=== PATIENT | female | born 1960 | race Caucasian/White ===

== ENCOUNTER → 2020-09-25 12:17 | Outpatient (CLI) | payer OTHER, SELFPAY ==
--- NOTE | ~2020-09-25 | DEXA_ITS ---
Bone Density Report Name: Janae Galeano Age: 60 Sex: Female Ethnicity: White Date of : 1960 Indication: postmenopausal; screening for osteoporosis; Referring Provider: BENJA DAUGHERTY Study: Bone densitometry was performed. Exam Date: September 25, 2020 Accession number: [id number] Bone Density: Region BMD T-score Z-score Classification AP Spine (L1-L4) 0.938 -1.0 0.5 Normal Femoral Neck (Left) 0.827 -0.2 1.1 Normal Total Hip (Left) 0.807 -1.1 -0.1 Osteopenia World Health Organization criteria for BMD impression classify patients as: Normal (T-score at or above -1.0), Osteopenia (T-score between -1.0 and -2.5), or Osteoporosis (T-score at or below -2.5). 10-year Fracture Risk(1): Major Osteoporotic Fracture 6.4% Hip Fracture 0.2% Reported Risk Factors: [place] (), Neck BMD=0.827, BMI=29.6 (1) FRAX(R) Version 3.08. Fracture probability calculated for an untreated patient. Fracture probability may be lower if the patient has received treatment. Previous Exams: Region Exam Age BMD T-score BMD Change BMD Change Date g/cm2 vs Baseline vs Previous AP Spine(L1-L4) 09/25/2020 60 0.938 -1.0 -0.175* -0.175* 06/13/2012 51 1.112 0.6 Total Hip(Left) 09/25/2020 60 0.807 -1.1 -0.225* -0.225* 06/13/2012 51 1.033 0.7 *Denotes significance at 95% confidence level, LSC for AP Spine = 0.022 g/cm2, LSC for Total Hip = 0.027 g/cm2 Clinical Information Provided by Patient: Patient maximum height was 64 Menopause Age: 51 No regular weight bearing exercise Drinks caffeinated beverages Onset of menses at age 13 Number of children 3 Impression: The patient has low bone mass, based on the Left Total Hip T-score. The patient has an estimated ten-year risk of hip fracture of 0.2% and an estimated ten-year risk of major fracture of 6.4%, based on the WHO FRAX algorithm. The BMD for the AP Spine(L1-L4) decreased, changing by -0.175 since the last DXA exam. The BMD for the Total Hip(Left) decreased, changing by -0.225 since the last DXA exam. Discussion: BONE DENSITY IS LOW AT ONE OR MORE SKELETAL SITES. This patient's lowest T-score is low at one or more skeletal sites. It meets the World Health Organization's (WHO) criteria for ?low bone mass? (T-score between -1.0 and -2.5). The patient's 10-year risk of fracture as calculated by FRAX is less than the threshold where pharmacological therapy is recommended by the National Osteoporosis Foundation (NOF). However, all treatment decisions r
== END ==
PROVIDERS: PCP Physician Assistant; Visit Provider Obstetrics & Gynecology
DX: Z78.0 Asymptomatic menopausal state (principal); M85.852 Other specified disorders of bone density and structure, left thigh
CPT/HCPCS: 77080

== ENCOUNTER → 2020-09-25 12:21 | Outpatient (CLI) | payer OTHER, SELFPAY ==
--- NOTE | ~2020-09-25 | MM_ITS ---
EXAMINATION: MM scrn marzena implant BI w de HISTORY: Screening mammogram TECHNIQUE: Craniocaudal and mediolateral oblique 3-D tomosynthesis images with implant displacement a nd synthetic 2-D images were generated. Craniocaudal and mediolateral oblique views of the breasts wi thout implant displacement were obtained using full field digital mammography. CAD analysis was submi tted and interpreted. COMPARISON: No prior mammogram is available for comparison at this institution. BREAST PARENCHYMAL COMPOSITION: The breasts are heterogeneously dense, which may obscure small masses . FINDINGS: There is no evidence of suspicious mass, calcification, or architectural distortion to sugg est malignancy in either breast. There has been no suspicious interval change. IMPRESSION: 1. No mammographic evidence of malignancy. 2. Recommend routine screening mammography in one year. BI-RADS Category 1: Negative Reviewed, dictated and finalized at location A. PREAD INSPECTOR
== END ==
PROVIDERS: PCP Physician Assistant; Visit Provider Physician Assistant
DX: Z12.31 Encounter for screening mammogram for malignant neoplasm of breast (principal)
CPT/HCPCS: 77063; 77067

== ENCOUNTER → 2022-10-25 07:32 | Outpatient (CLI) | payer OTHER, SELFPAY ==
--- NOTE | ~2022-10-25 | MM_ITS ---
EXAMINATION: MM scrn marzena implant BI w de HISTORY: Screening mammogram TECHNIQUE: Craniocaudal and mediolateral oblique 3-D tomosynthesis images with implant displacement a nd synthetic 2-D images were generated. Craniocaudal and mediolateral oblique views of the breasts wi thout implant displacement were obtained using full field digital mammography. CAD analysis was submi tted and interpreted. COMPARISON: 09/2020, 03/2018, 02/12/2016 bilateral screening implant mammogram examinations BREAST PARENCHYMAL COMPOSITION: The breasts are heterogeneously dense, which may obscure small masses . FINDINGS: Status post bilateral augmentation mammoplasty. New 7 mm mass is suggested in the upper outer left breast posteriorly. Diagnostic left mammogram and left breast ultrasound examination are recommended. Grouped microcalcifications are noted in the posterior upper right breast on implant displaced MLO vi ew. Diagnostic right mammogram with magnification views is recommended.. IMPRESSION: 1. Suggestion of new 7 mm mass in the posterior upper outer left breast. 2. Grouped microcalcifications in posterior upper right breast on implant displaced MLO view Recommendation: Bilateral diagnostic mammography including magnification views on the right BI-RADS Category 0: Incomplete: Needs additional imaging evaluation Reviewed, dictated and finalized at location A. IMPRESSION: 1. Suggestion of new 7 mm mass in the posterior upper outer left breast. 2. Grouped microcalcifications in posterior upper right breast on implant displ aced MLO view Recommendation: Bilateral diagnostic mammography including magnification views on the right BI-RADS Category 0: Incomplete: Needs additional imaging evaluation
== END ==
PROVIDERS: PCP Physician Assistant; Visit Provider Physician Assistant
DX: Z12.31 Encounter for screening mammogram for malignant neoplasm of breast (principal); N63.21 Unspecified lump in the left breast, upper outer quadrant
CPT/HCPCS: 77063; 77067

== ENCOUNTER → 2022-11-18 08:11 | Outpatient (CLI) | payer OTHER, SELFPAY ==
--- NOTE | ~2022-11-18 | MMUS_ITS ---
EXAMINATION: MM diag marzena implant BI w de, US breast BI complete HISTORY: Possible new 7 mm mass in the posterior upper outer left breast grouped microcalcifications in the posterior upper right breast on October 25, 2022 screening mammogram examination TECHNIQUE: Additional 3-D tomosynthesis images of both breasts were performed and synthetic 2-D image s were generated. Magnification views of right breast. CAD analysis was submitted and interpreted. Hi gh resolution bilateral complete breast ultrasound examination including all 4 quadrants and subareol ar areas was performed. COMPARISON: October 25, 2022 bilateral implant screening mammogram FINDINGS: MAMMOGRAPHIC FINDINGS: Approximately 5.5 mm circumscribed mass is noted posteriorly in the upper right breast, with some egg shell calcification. This appears probably benign. Heterogeneously dense stroma of the breasts may obscure masses. ULTRASOUND: There is dense stroma of both breasts Right breast: 10:00 8 cm from nipple: There is a circular proximally 7 mm circumscribed hypoechoic lesion which lik aby corresponds to the density with eggshell calcification on mammography. This is not associated wit h any internal vascularity on color flow imaging. This is most likely benign. No suspicious mass is detected. There is some shadowing from very dense breast tissue, without appare nt focal mass. Left breast: No suspicious mass or shadowing is detected. IMPRESSION: 1. Probable benign finding, right breast 10:00 8 cm from nipple 2. 6 month diagnostic right mammogram and right breast ultrasound follow-up are recommended BI-RADS category 3, probably benign findings. Reviewed, dictated and finalized at location A. IMPRESSION: 1. Probable benign finding, right breast 10:00 8 cm from nipple 2. 6 month diagnostic right mammogram and right breast ultrasound follow-up are recommended BI-RADS category 3, probably benign findings.
== END ==
PROVIDERS: PCP Physician Assistant; Visit Provider Physician Assistant
DX: R92.8 Other abnormal and inconclusive findings on diagnostic imaging of breast (principal)
CPT/HCPCS: 76641; 77062; 77066; G0279

== ENCOUNTER 2024-03-15 07:36 | Outpatient (CLI) | payer OTHER, SELFPAY ==
--- NOTE | ~2024-03-15 | MMUS_ITS ---
EXAMINATION: US breast RT complete, MM diag marzena implant BI w de HISTORY: Follow-up right breast mass TECHNIQUE: Additional 3-D tomosynthesis images of the right breast were performed and synthetic 2-D i mages were generated. CAD analysis was submitted and interpreted. High resolution complete right juan carlos st ultrasound was performed. COMPARISON: Comparison to multiple prior studies sequentially, with oldest reviewed study dated 10/2020. BREAST PARENCHYMAL COMPOSITION: Dense: The breasts are extremely dense, which lowers the sensitivity of mammography. FINDINGS: MAMMOGRAPHIC FINDINGS: No discrete mass or architectural distortion. There are no suspicious calcifications. There are bilat eral subpectoral breast implants. ULTRASOUND: Complete US of all 4 quadrants of the breast/s and retroareolar region was reviewed. At 11:00, 5 cm f rom the nipple there is a slightly irregular shaped hypoechoic mass measuring 9 x 6 x 9 mm without po sterior acoustic shadowing. At 10:00, 8 cm from the nipple there is oval hypoechoic 7 mm mass with ci rcumscribed margins, parallel orientation, no significant posterior features and no internal vascular ity, without significant change from prior study. IMPRESSION: 1. New 9 mm right breast mass at 11:00, 5 cm from the nipple with slightly irregular margins. 2. Ultrasound-guided right breast biopsy recommended. BI-RADS category 4, suspicious findings. Reviewed, dictated and finalized at location B. IMPRESSION: 1. New 9 mm right breast mass at 11:00, 5 cm from the nipple with slightly irre gular margins. 2. Ultrasound-guided right breast biopsy recommended. BI-RADS category 4, suspicious findings.
== END 2024-03-15 07:37 ==
LOC: MICIMG 07:37
PROVIDERS: PCP Physician Assistant; Visit Provider Nurse Practitioner Family
DX: R92.8 Other abnormal and inconclusive findings on diagnostic imaging of breast (principal)
CPT/HCPCS: 76641; 77062; 77066; G0279

== ENCOUNTER 2024-05-04 12:36 | Outpatient (CLI) | payer OTHER, SELFPAY ==
--- NOTE | ~2024-05-04 | MR_ITS ---
MR breast BI wo/w con 05/07/2024 10:22 CDT INDICATION: Right breast mass seen on prior examination. Biopsy requested. TECHNIQUE: MRI of the breasts perform using standard protocol pre-and post IV contrast with the follo wing sequences: Axial T2 STIR, axial T1, axial vibrant T1 with fat suppression precontrast and multip hasic postcontrast. 15 cc MultiHance administered intravenously. COMPARISON: Comparison to multiple prior studies sequentially, with oldest reviewed study dated 10/2017. FINDINGS: On precontrast sequences and postcontrast sequences there is a 9 mm mass which is predomina ntly hyperintense on T1, hypointense on T2 and isointense to fat on fat suppression sequences with no enhancement. This likely corresponds to the sonographic abnormality seen on prior examination and is likely benign. There is a similar 6 mm nodule in the upper inner quadrant of the right breast withou t enhancement. There is a 3 mm foci of enhancement with rapid plateau enhancement, likely benign intr amammary lymph node. There is minimal background parenchymal enhancement. No evidence of signal abno rmalities in the axillary or internal mammary node distributions. LEFT BREAST: No signal abnormalities on precontrast sequences. There is minimal background parenchym al enhancement. No enhancing lesions following contrast administration. No areas of enhancement me eting threshold criteria on CAD analysis. No evidence of signal abnormalities in the axillary or in ternal mammary node distributions. IMPRESSION: 1: Small nonenhancing masses of the right breast which may correspond to the sonographic findings on prior examination. Given the lack of enhancement and the relative fat suppression these are likely be nign. BI-RADS CATEGORY 3-PROBABLY BENIGN FINDING RECOMMENDATION: Six-month follow-up diagnostic right mammogram and right breast ultrasound recommende d. Reviewed, dictated and finalized at location B. IMPRESSION: 1: Small nonenhancing masses of the right breast which may correspond to the so nographic findings on prior examination. Given the lack of enhancement and the relative fat suppression these are likely benign. BI-RADS CATEGORY 3-PROBABLY BENIGN FINDING RECOMMENDATION: Six-month follow-up diagnostic right mammogram and right breast ultrasound recommended.
== END 2024-05-04 12:37 | disposition home or self-care (01) ==
LOC: ANHIMG 12:38
PROVIDERS: PCP Physician Assistant; Visit Provider Surgery
DX: N63.11 Unspecified lump in the right breast, upper outer quadrant (principal); N63.12 Unspecified lump in the right breast, upper inner quadrant; R92.8 Other abnormal and inconclusive findings on diagnostic imaging of breast
CPT/HCPCS: 77049; A9577; C8908

== ENCOUNTER 2024-12-18 09:05 | Outpatient (CLI) | payer OTHER, SELFPAY ==
--- NOTE | ~2024-12-18 | MMUS_ITS ---
EXAMINATION: US breast RT limited, MM diag marzena implant RT w de HISTORY: Follow-up right breast mass TECHNIQUE: Additional 3-D tomosynthesis images of the right breast were performed and synthetic 2-D i mages were generated. CAD analysis was submitted and interpreted. High resolution Limited right breas t ultrasound was performed. COMPARISON: Comparison to multiple prior studies sequentially, with oldest reviewed study dated 02/11. BREAST PARENCHYMAL COMPOSITION: Dense: The breasts are heterogeneously dense, which may obscure small masses FINDINGS: MAMMOGRAPHIC FINDINGS: There is a subpectoral breast implant. There is a small stable appearing periareolar mass of the righ t breast seen on CC view, not well visualized on MLO or mediolateral views. ULTRASOUND: Limited right breast ultrasound: At 11:00, 5 cm from the nipple there is a parallel oriented circumsc ribed hypoechoic mass measuring 9 x 7 x 9 mm compared with 9 x 6 x 9 mm on prior examination, likely benign. At 10:00, 8 cm from the nipple there is an oval hypoechoic parallel oriented mass without int ernal vascularity or posterior features measuring 5 x 4 x 6 mm compared with 7 x 5 x 6 mm on prior ex amination. IMPRESSION: 1. Stable likely benign right breast masses. 2. Recommend 6 month follow-up bilateral screening mammogram and Limited right breast ultrasound. BI-RADS category 3, probably benign findings. Reviewed, dictated and finalized at location A. IMPRESSION: 1. Stable likely benign right breast masses. 2. Recommend 6 month follow-up bilateral screening mammogram and Limited right breast ultrasound. BI-RADS category 3, probably benign findings.
== END 2024-12-18 09:06 | disposition home or self-care (01) ==
LOC: MICIMG 09:05
PROVIDERS: PCP Physician Assistant; Visit Provider Surgery
DX: R92.8 Other abnormal and inconclusive findings on diagnostic imaging of breast (principal); R92.343 Mammographic extreme density, bilateral breasts; N63.11 Unspecified lump in the right breast, upper outer quadrant
CPT/HCPCS: 76642; 77061; 77065; G0279

== ENCOUNTER 2025-06-03 00:14 | Day surgery (SDC) | payer OTHER, SELFPAY ==
--- OUTSIDE RECORDS SUMMARY | 2025-02-21 08:15 | XMS_ITS | Continuity of Care Document ---
Author Organization [facility] Address [address] [place] [address] Phone Care Team Providers Care Technical Buyer Name Role Phone Reese Myles MD, Victor Hugo Unavailable Unavailab le Allergies, Adverse Reactions, Alerts Substance Reaction Status Criticality levofloxacin Active No Information Medications Medication Instructions Dosage Effective Dates (start - stop) Status Comments oxycodone 5 mg tablet take 1 tablet by oral route every 6 hours as needed 5 MG - Active Aspirin Childrens 81 mg chewable tablet chew 1 tablet by oral route every day 81 MG - Active cephalexin 500 mg tablet take 1 tablet by oral route 2 times every day 500 MG - Active sennosides 8.6 mg-docusate sodium 50 mg tablet take 2 tablet by oral route every day 2.00 tablet - Active escitalopram 5 mg tablet take 1 tablet by oral route every day 5 MG - Active methocarbamol 500 mg tablet take 1 tablet by oral route 3 times every day 500 MG - Active valacyclovir 500 mg tablet take 1 tablet by oral route every day 500 MG - Active clonazepam 1 mg tablet take 1 tablet by oral route 3 times every day 1 MG - Active naloxone 4 mg/actuation nasal spray spray 0.1 milliliter by intranasal route in 1 nostril may repeat dose every 2-3 minutes as needed alternating nostrils with each dose 4 MG - Active topiramate 25 mg tablet take 1 tablet by oral route every day 25 MG - Active midodrine 5 mg tablet take 2 tablet by oral route 3 times every day 10 MG - Active Procedures Procedure Date OFFICE/OUTPATIENT VISIT EST X-RAY EXAM OF FEMUR 2/> OFFICE/OUTPATIENT VISIT EST X-RAY EXAM OF FEMUR 2/> POSTOP FOLLOW-UP VISIT X-RAY EXAM OF FEMUR 2/> POSTOP FOLLOW-UP VISIT X-RAY EXAM OF FEMUR 2/> TREATMENT OF THIGH FRACTURE POSTOP FOLLOW-UP VISIT Advance Directives Directive Yes / No Effective Date File Name No Information Encounters Encounter Description Practice Location Reason(s) For Visit Diagnoses Date Provider Providers Copied on Encounter OFFICE/OUTPA TIENT VISIT EST [facility], [address], [place], [address], [place] tel:[phone] [facility] [place] Status post open reduction with internal fixation of fractureOther fracture of lower end of right femur, subsequent encounter for closed fracture with routine healing 5 Reese Gay. [address], [place], [address], [place]. tel:[phone] Referring Provider: Jesus Barfield[address] [facility] [address], [place], [address]. tel:[phone] OFFICE/OUTPA TIENT VISIT EST [facility], [address], [place], [address], [place] tel:[phone] [facility] Status post open reduction with internal fixation of fracturePersonal history of (healed) traumatic fracture 5 Reese Gay. [address], [place], [address], [place]. tel:[phone] Referring Provider: Jesus Bar[address], [place], [address]. tel:[phone] [facility], [address], [place], [address], [place] tel:[phone] [facility] No Information 5 Reese Gay. [address], [place], [address], [place]. tel:[phone] [facility], [address], [place], [address], [place] tel:[phone] [facility] Other fracture of lower end of right femur, subsequent encounter for closed fracture with routine healingStatus post open reduction with internal fixation of fracturePersonal history of (healed) traumatic fracture 5 Reese Gay. [address], [place], [address], [place]. tel:[phone] Referring Provider: Jesus Barfield[address], [place], [address]. tel:[phone] [facility], [address], [place], [address], [place] tel:[phone] [facility] Other fracture of lower end of right femur, subsequent encounter for closed fracture with routine healing 5 Reese Gay. [address], [place], [address], [place]. [phone] Referring Provider: Jesus Barfield[address], [place], [address]. tel:[phone] [facility], [address], [place], [address], [place] tel:[phone] [facility] FEMUR (chief complaint) Other fracture of lower end of right femur, subsequent encounter for closed fracture with routine healingPeriprost hetic fracture around internal prosthetic right knee joint, initial encounter 5 Reese Gay. [address], [place], [address], [place]. tel:[phone] Referring Provider: Mitzy Nunez [address], [place], [address]. tel:[phone] [facility], [address], [place], [address], [place] tel:[phone] [facility] Periprosthetic fracture around internal prosthetic right knee joint, initial encounterOther fracture of lower end of right femur, initial encounter for closed fracturePresence of right artificial knee joint Reese Gay. [address], [place], [address], [place]. tel: [phone] Family History Family Member Type Diagnosis Age At Onset No Information Payers Payer name Insurance type Covered constitution party ID Authoriza tion(s) [facility] Choice/Choice Plus [id number] [id number] Social History Type Description Quantity Date Captured Comments Alcohol Use Details Unknown Caffeine Use Details Unknown Tobacco Use Status No Information Smoking Status No Information Sex Female Chief Complaint And Reason For Visit No Information Reason For Referral Reason For Referral No Information Plan Of Treatment Date Type Action Status Referral Ordered: X-RAY EXAM OF FEMUR 2/> RT femur ordered History Of Present Illness Encounter Date Complaint History Of Prese nt Illness FEMUR Functional Status Date Functional Assessmen t No Information Instructions Date Instruction Additional Infor mation No Information Assessments Type Assessment Date assessment Status post open reduction with internal fixation of fracture assessment Other fracture of lo wer end of right femur, subsequent encounter for closed fracture with routine healing Patient Care Teams Name Effective Dates (start - stop) Status Members No Information
--- OUTSIDE RECORDS SUMMARY | 2025-06-03 00:16 | XMS_ITS | Clinical Summary ---
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 Role Phone Mitzy Nunez Primary Care Pr ovider Allergies Active Allergy Reactions Criticality Noted Date Comments Levofloxacin Swelling,Joint pain Medium 01/13/2011 Medications escitalopram (LEXAPRO) 5 mg tabletIndicatio ns:Anxiety with Depression Take 1 tablet (5 mg total) by mouth every morning 3 Active methocarbamoL (ROBAXIN) 500 mg tabletIndicatio ns:Muscle Spasm Take 1 tablet (500 mg total) by mouth 2 (two) times a day as needed for muscle spasms Active valACYclovir (VALTREX) 1 gram tabletIndicatio ns:prevent cold sores Take 1 tablet (1,000 mg total) by mouth nightly 1 Active clonazePAM (KlonoPIN) 1 mg tabletIndicatio ns:sleep, anxiety Take 1 tablet (1 mg total) by mouth nightly Active Ubrelvy 100 mg tabletIndicatio ns:Migraine,cut s tabs in half; starts at 50 mg (1/2 a tablet) and can take one more 50mg as needed Take 50 mg by mouth 2 (two) times a day as needed for migraine 4 Active cholecalciferol , vitamin D3, (VITAMIN D3 ORAL)Indication s:supplement Take 1 tablet by mouth early intervention specialist before breakfast Active inulin (PREBIOTIC FIBER ORAL)Indication s:supplement Take 1 tablet by mouth early intervention specialist before breakfast Active ergocalciferol (VITAMIN D) 50,000 unit capsule TAKE 1 CAP 2 X A WEEK FOR 8 WEEKS THEN FOLLOW UP WITH YOUR PCP. 16 capsule 4 Active traMADoL (ULTRAM) 50 mg tablet Take 1 tablet (50 mg total) by mouth every 6 (six) hours 42 tablet 4 Active pregabalin (LYRICA) 75 mg capsule Take 1 capsule (75 mg total) by mouth 2 (two) times a day for 14 days 28 capsule 4 Active acetaminophen (TYLENOL) 500 mg tablet Take 2 tablets (1,000 mg total) by mouth every 8 (eight) hours 90 tablet 4 Active aspirin 81 mg enteric coated tablet Take 1 tablet (81 mg total) by mouth 2 (two) times a day 60 tablet 4 Active senna-docusate (PERICOLACE) 8.6-50 mg Take 2 tablets by mouth 2 (two) times a day May increase to 4 tablets twice daily if needed. HOLD medication for diarrhea. 80 tablet 1 4 Active meloxicam (MOBIC) 15 mg tablet Take 1 tablet (15 mg total) by mouth daily 30 tablet 4 Active oxyCODONE (ROXICODONE) 5 mg immediate release tabletIndicatio ns:Pain Take 1 tablet (5 mg total) by mouth every 4 (four) hours as needed for pain 30 tablet 4 Active triamcinolone (KENALOG) 0.025 % cream Apply topically 2 (two) times a day 30 g 4 Active methylPREDNISol one (MEDROL DOSEPACK) 4 mg Dosepack Take as directed on package 1 packet 4 Active topiramate (TOPAMAX) 50 mg tablet 4 Active Active Problems Problem Noted Date Diagnosed Date Right knee pain 12/22/2023 Primary osteoarthritis of right knee 08/29/2023 Surgical History Surgery Date Site/Laterality Comments TOTAL HIP ARTHROPLASTY Hip Replacement - (Added by TW Conv) HIP SURGERY Hip Repair - (Added by TW Conv) GA INJ LUMBAR/SACRAL,W/WO CNTRST Corticosteroid Injection Interlaminar Approach Lumbar - (Added by TW Conv) GA DSTR NROLYTC AGNT PARVERT EB FCT SNGL LMBR/SACRAL Nerve Ablation Paravertebral Facet Joint With Imaging Guidance Lumbar - CRF left S1,S2,S3 L5 (Added by TW Conv) REPLACEMENT TOTAL KNEE Left Medical History Medical History Date Comments Personal history of other di seases of the musculoskeletal system and connective tissue History o f foot drop - (Added by TW Conv) Family History Medical History Relation Name Comments Hypertension Father Family history of hypertension - (Added by TW Conv) Kyphosis Father Kyphosis - (Add ed by TW Conv) Kyphosis Sister Kyphosis - (Add ed by TW Conv) Kyphosis Son Kyphosis - (Add ed by TW Conv) Anesthesia problems Neg Hx Relation Name Status Comments Father Sister Son Social History Tobacco Use Types Packs/Day Years Used Date Smoking Tobacco: Former Cigarettes 1 12 S tarted: 1977 Smokeless Tobacco: Never Tobacco Cessation:Counseling Given: Not Answered AUDIT-C Answer Date Recorded Q1: How often do you have a drink containing alcohol? Never 12/02/2023 Q2: How many drinks containi ng alcohol do you have on a typical day when you are drinking? Patient does not drink Q3: How often do you have si x or more drinks on one occasion? Never 12/02/2023 Personal Safety Answer Date Recorded Have you ever been in or are you currently in a harmful physical or emotional relationship or is someone making you feel afraid or unsafe? 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[employer] HEL[employer] Gender Identity Female 11/27/2023 8:06 PM CDT Sexual Orientation Straight 11/27/2023 8: 06 PM CDT Last Filed Vital Signs Vital Sign Reading Time Taken Comments Blood Pressure 124/66 12/23/2023 7:25 AM CDT Pulse 61 12/23/2023 7:25 AM CDT Temperature 35.7 C (96.2 F) 12/23/2023 7:25 AM CDT Respiratory Rate 16 12/23/2023 7:25 AM CDT Oxygen Saturation 99% 12/23/2023 7:25 AM CDT Inhaled Oxygen Concentration - - Weight 79 kg (174 lb 3.2 oz) 12/02/2023 2:10 PM CDT Height 160 cm (5' 3) 12/02/2023 2:10 PM CDT Body Mass Index 30.86 12/02/2023 2:10 PM CDT Plan of Treatment Health Maintenance Due Date Last Done Comments Cervical Cancer Screening 1959 Colon Cancer Screening-Colonoscopy 1959 Depression Screening 1959 Hepatitis C Screening 1959 Osteoporosis Screening-Bone Density Scan 1959 Hepatitis B Screening 1977 Pneumococcal vaccine 65+ (1 of 2 - PCV) 1978 Zoster Vaccine (1 of 2) 2009 DTaP/Tdap/Td Vaccine (2 - Td or Tdap) 11/14/2016 11/14/2006 Breast Cancer Screening-Mammogram 09/25/2021 021 Well Visit 65+ 2024 Fall Risk Assessment 12/22/2024 12/23/2023 Influenza Vaccine (#1) 2025 3, 04/29/2022, 04/28/2020, Additional history exists Medical Devices Implanted Type Area Pallet Sorter Device Identifier Shelf Expiration Date Model / Serial / Lot Left Knee Replacement Left: Knee Right Hip Replacement Right: Hip [employer] Attune Fb Tib Base Sz 5 Por [id number] - [id number] Implanted:Qty: 1 on 12/22/2023 at [facility] Right: Knee [employer] 02/21/2033 [id number] / / [id number] [employer] Attune Cruciate Retain Cementless Knee Right 5 Component Femoral [id number] - [id number] Implanted:Qty: 1 on 12/22/2023 at [facility] Right: Knee [employer] 10/22/2033 [id number] / / [id number] [employer] Insert Tibial Knee Fixed Rm Posterior Stabilized Attune 7mm Size 5 Polyethylene [id number] - [id number] Implanted:Qty: 1 on 12/22/2023 at [facility] Right: Knee [employer] 10/23/2031 [id number] / / [id number] [address] [facility] Address: [address] [place] [address] [facility] Address: [address] [place] [address] Advance Directives For more information, please contact: [phone] * Full Code (Latest Code Status on File) Date Activated Date Inactivated Comments 12/22/2023 6:42 PM 12/23/2023 1:57 PM Care Teams Long Wall Shear Operator Relationship Specialty Start Date End Date Mitzy Nunez PA PCP - General 10/29/16
--- OUTSIDE RECORDS SUMMARY | 2025-06-03 00:16 | XMS_ITS | Data Portability ---
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 mammogram UTD october 2022. additional views are needed and to complete Not available 11/19/2022 18:15:54 12/22/2022 12/22/2022 HPI: 62-year-old female came in today for evaluation of her right knee pain. Her pain started on November 16 of this year when she slipped in the right knee hyperflexed under her. She had some degree of pain when this happened but 3 or 4 days later knee started really bothering her. It continued to bother since then. She has not been taking any anti-inflammatori es for this. Patient has significant past medical history of having a left total knee arthroplasty done in [place] in 2010. She had her right hip replaced in 1997 and has had 2 revisions 1 done in 2005 and the other in 2014. After her surgery 2014 she had a footdrop on the right leg. This was evaluated with EMG and she had a decompression of the peroneal nerve done which seemed to help a little bit with foot drop so it is not at this point severe. She does have a brace but does not feel she needs it. Physical exam: 62-year-old female alert pleasant. She is 5 ft 4 and 178 lb. She has mild effusion right knee. Range of motion is from 5 to 130 . She starts developing pain in the knee after about 100 of flexion. Hip range motion causes no discomfort. She has moderate tenderness over the medial joint line palpation. No lateral joint line tenderness. Minimal pain patellofemoral grind. 2+ dorsalis pedis pulse in her foot. No edema in lower extremities. After ChloraPrep was used on skin 20 mg Kenalog and 3 cc of 0.5% ropivacaine was injected into the right knee. Risk infection discussed. Impression: 62-year-old female who has severe medial compartment osteoarthritis of the right knee. She was having almost no symptoms in the knee up until this episode about 6 weeks ago. I discussed options with her. One option is to talk about knee replacement surgery since she does have severe medial compartment osteoarthritis. She has had her left knee replaced in the past and is happy with her results. The other option is to treat the symptoms in the right knee at this point and see whether not this will quiet down to the point where they were prior to her injury and be able to put off surgery for while. 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 I discussed with her that having cortisone injection it is a minimum of 3 months for surgery could be an option. Also she can repeat cortisone injection as often as every 3 months. At this point she is not taking any anti-inflammatori es and I recommended trying diclofenac 75 mg b.i.d. to try to get maximal improvement of her symptoms. After discussing options with her she decided she would like to try medication as well injection to see if this will make things tolerable so that she can not put things off for longer period of time. I think trying to get her scheduled for surgery and getting her rehabilitated and ready for school to start in mid February would be worrisome and we discussed this as well. I will see her back in a month to see how she is doing from these measures. 30 minutes was spent in treatment patient more than half of this in [id number] conversation [email or web address] Not available 12/22/2022 17:08:48 05/30/2023 05/30/2023 cologuard negative 2021. mammogram UTD october 2022. had additional views due for pap smear with dr. weiner, pt aware to schedule. Not available 05/30/2023 17:32:26 Plan of Treatment Reminders Order Date Submit Date Provider Last Modified By Organization Details Last Modified Time Details Appointments None recorded. Lab CMP, serum or plasma 2022 023 [email or web address] 4 [facility], [address], [place], [address], 11:46:46 lipid panel, serum 2022 023 [email or web address] 4 [facility], [address], [place], [address], 11:46:57 Referral None recorded. Procedures injection/a spiration joint/bursa (PROC) - in office procedure, administere d by provider 2022 023 [email or web address] In-Office Order, Internal Use Only DO Not Attach Compendium DO Not Attach Compendium, Do Not Delete/merge, 20314 16:08:04 Surgeries None recorded. Imaging MRI, brain + internal auditory canal, w/wo contrast 2022 023 [email or web address] [facility], [address], [place], [address], 16:34:13 XR, knee 2022 023 [email or web address] [facility], [address], [place], [address], 3 17:25:50 Medication Orders Kenalog 10 mg/mL suspension for injection 2022 023 [email or web address] 4 [id number], [address], [place], [place], [id number], 3 09:31:40 ropivacaine (PF) 5 mg/mL (0.5 %) injection solution 2022 023 [email or web address] 4 [facility] #[id number], [address], [place], [place], [id number], 3 09:31:43 diclofenac sodium 75 mg tablet,gema yed release 2022 023 [email or web address] 4 [facility] #[id number], [address], [place], [place], [id number], 3 09:34:55 Patient TargetsNo targets recorded. Patient InstructionsNo instructions recorded. Reason for Referral None Reported. Results Created Date Observation Date Name Description Value Unit Range Abnormal Flag Note LastModifiedBy Organization Detail LastModifiedTime 05/19/2005/19/2022 COLOG UARD cologuard result reportable negati ve negati ve NEGAT KALANI TEST RESUL T. A negat kalani Colog uard resul t indic ates a low likel ihood that a color ectal cance r (CRC) or advan jose adeno ma (j luis omato us polyp s with more advan jose pre-m align ant featu res) is prese nt. The chanc e that a perso n with a negat kalani Colog uard test has a color ectal cance r is less than 1 in 1500 (nega tive predi ctive value >99.9 %) or has an advan jose adeno ma is less than 5.3% (nega tive predi ctive value 94.7% ). These data are based on a prosp ectiv e cross -sect ional study of ,00 0 indiv idual s at [facility] risk for color ectal cance r who were scree hodan with both Colog uard and colon oscop y. (Shantanu chavez T. et al, N Engl J Med 2014; 370(1 4):12 86-12 97) The stanley l value (refe rence range ) for this assay is negat kalani. COLOG UARD RE-SC REENI NG RECOM MENDA TION: Perio dic color ectal cance r scree maya is an impor tant part of preve ntive healt hcare for asymp tomat ic indiv idual s at [facility] risk for color ectal cance r. Follo wing a negat kalani Colog uard resul t, the Ameri can Cance r Socie ty and U.S. Multi -Soci ety Task Force scree maya guide lines recom mend a Colog uard re-sc obdulia tirado inter dari of 3 years . Refer ences : Ameri can Cance r Socie ty Guide line for Color ectal Cance r Scree maya: https ://inocente w.can cer.o rg/ca ncer/ colon -rect al-ca ncer/ detec tion- diagn osis- stagi ng/ac s-rec ommen datio ns.ht ml.; Evaristo PEARSON, Yolis PEREZ, Angela JOSHUA, Color ectal Cance r Scree maya: Recom menda tions for Physi cians and Patie nts from the U.S. Multi -Soci ety Task Force on Color ectal Cance r Scree maya , Sky Gray Gastr emilyntzakia rolog y 2017; 112:1 016-1 030. TEST DESCR IPTIO N: Wright site algor ithmi c layton sis of stool DNA-b iomar kers with hemog lobin immun oassa y. Quant itati ve value s of indiv idual bioma rkers are not repor table and are not assoc iated with indiv idual bioma rker resul t refer ence range s. Colog uard is inten ded for color ectal cance r scree maya of adult s of eithe r sex, 45 years or older , who are at [facility] for color ectal cance r (CRC) . Colog uard has been appro mariana for use by the U.S. FDA. The perfo rmanc e of Colog uard was estab lishe d in a cross secti onal study of [facility] adult s aged 50-84 . Colog uard perfo rmanc e in patie nts ages 45 to 49 years was estim ated by mata-g starr layton sis of near- age group s. Colon oscop ies perfo rmed for a posit kalani resul t may find as the most clini jeniffer signi ficyolanda t lesio n: color ectal cance r [4.0% ], advan jose adeno ma (incl uding sessi le rancho ethan polyp s great er than or equal to 1cm diame ter) [20%] or non- advan jose adeno ma [31%] ; or no color ectal neopl dedra [45%] . These estim ates are deriv ed from a prosp ectiv e cross -sect ional scree maya study of 0 indiv idual s at [facility] risk for color ectal cance r who were scree hodan with both Colog uard and colon oscop y. (Shantanu Noel et al, N Engl J Med 2014; 370(1 4):12 86-12 97.) Colog uard may produ ce a false negat kalani or false posit kalani resul t (no color ectal cance r or preca ncero us polyp prese nt at colon oscop y follo w up). A negat kalani Colog uard test resul t does not guara ntee the absen ce of CRC or advan jose adeno ma (pre- cance r). The curre nt Colog uard scree maya inter dari is every 3 years . (Amer ican Cance r Socie ty and U.S. Multi -Soci ety Task Force ). Colog uard perfo rmanc e data in a 0 patie nt pivot al study using colon oscop y as the refer ence metho d can be acces sed at the follo wing locat ion: www.e xactl abs.c om/re reyna . Addit ional descr iptio n of the Colog uard test proce ss, warni ngs and preca ution s can be found at www.c sandraogu adam.c om. Not Available [employer] [address], [place], [address], 05/25/2022 10:58:40 10/27/19 23 10/25/2022 [email or web address] , diagn ostic , digit al, bilat eral No observ ation record ed. cyl [facility] [address], [place], [address], 12/27/2022 16:33:13 12/23/19 23 XR, knee No observ ation record ed. [email or web address] [place] [address], [place], [address], 12/22/2022 17:03:00 Result Notes None recorded. 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 Not Available [facility] 3 16:55:48 Deformity of foot 131150815 Active Not Available [facility] 3 16:55:48 Mixed anxiety and depressive disorder 800516825 Active JORDAN Stokes, [place] - [place] [employer] [facility] 3 14:32:03 Osteoarthr itis of hip 671190414 Active Not Available [facility] 3 16:55:49 Headache 94104229 Active Not Available [facility] 3 16:55:49 Mixed hyperlipid emia 879080329 Active Not Available [facility] 3 16:55:49 Recurrent major depressive episodes 502873477 Active Not Available [facility] 3 16:55:49 Foot-drop gait 31319551 Active Not Available [facility] 3 16:55:49 Low back pain 156384117 Active Not Available [facility] 3 16:55:49 Vaginitis 12264359 Active Not Available [facility] 3 16:55:49 Genital herpes simplex 90695523 Active Not Available [facility] 3 16:55:49 Vitamin D deficiency 32757593 Active Not Available [facility] 3 16:55:49 Acute pharyngiti s 776589936 Active Not Available [facility] 3 16:55:49 Dizziness 405973183 Active Not Available [facility] 3 16:55:49 Nausea 916992793 Active Not Available [facility] 3 16:55:49 Streptococ sandhya sore throat 86484154 Active Not Available [facility] 3 16:55:49 Closed injury of head 314680051700 Active Not Available [facility] 3 16:55:49 Herpes zoster 4420765 Active Not Available [facility] 3 16:55:49 Cough 98859360 Active Not Available [facility] 3 16:55:50 Disturbanc e in sleep behavior 24833041 Active Not Available [facility] 3 16:55:50 Upper respirator y infection 52074033 Active Not Available [facility] 3 16:55:50 Hyperlipid emia 95542778 Active JORDAN Stokes, [employer] [facility] [employer] 3 14:31:59 Foot-drop 2219592 Active Not Available [facility] 3 16:55:50 Nasal congestion 51637558 Active Not Available [facility] 3 16:55:50 Urinary tract infectious disease 43074100 Active Not Available [facility] 3 16:55:50 Posterior rhinorrhea 98209180 Active Not Available [facility] 3 16:55:50 Osteoarthr itis of ankle and/or foot 94249316 Active Not Available [facility] 3 16:55:50 Acute sinusitis 22383480 Active 2021 Not Available [facility] 3 16:55:48 Mammograph y abnormal 889150318 Active 2022 CALVIN Barfield [address], [address], [place], [address] , [employer] 3 14:10:21 Pain of right knee joint 9717112396032 00 Active 2022 Isabel cabrera, [employer] 3 15:18:29 Depressive disorder 07911351 Active 2022 CALVIN Barfield [address], [address], [place], [address] , [employer] 3 08:43:55 Hypercalce fang 13247213 Active 2022 CALVIN Barfield [address], [address], [place], [address] , [employer] 3 17:37:44 Blurring of visual image 643644227 Active 2022 CALVIN Barfield [address], [address], [place], [address] , [employer] 3 10:07:21 Migraine 40692970 Active 2022 CALVIN Barfield [address], [address], [place], [address] , [employer] 3 19:40:04 Pain of multiple joints 82565031 Active 2022 CALVIN Barfield [address], [address], [place], [address] , [employer] 3 09:51:35 Notes:COVID-19 pos 04/02/22 Problem Notes None recorded. Procedures Surgical History Date Name Laterality Status Provider Name and Address Organization Details Recorded Time 09/26/19 21 Most Recent Bone Density completed Not Available [facility] 09/22/2022 16:55:06 01/23/20 15 Orthopedic Surgery completed Not Available [facility] 09/22/2022 16:55:06 07/25/19 11 Date of Last Colonoscopy completed Not Available [facility] 09/22/2022 16:55:06 completed Not Available [facility] 0 09/22/2022 16:55:06 other completed Not Available [facility] 07/2022 16:55:06 other completed Not Available [facility] 07/2022 16:55:06 completed Not Available [facility] 0 09/22/2022 16:55:06 other completed Not Available [facility] 07/2022 16:55:06 [employer] Surgery completed Not Available [facility] 09/22/2022 16:55:06 Orthopedic Surgery completed Not Available [facility] 09/22/2022 16:55:06 Orthopedic Surgery completed Not Available [facility] 09/22/2022 16:55:06 Orthopedic Surgery completed Not Available [facility] 09/22/2022 16:55:06 Imaging Results None recorded. Procedure Notes None recorded. Medical Equipment None Reported. Allergies Allergen ID Allergen Name Allergen Category Reaction Reaction Severity Criticality Documentation Date Start Date Code Code System Note Provider Name and Address Organization Details Recorded Time 63061 levofloxa jared medicatio n Not available Not available Not available 09/22/2022 34450 RxNorm unsur e Not Available [facility] 3 16:56:43 53988 Levaquin medicatio n other Not available Not available 09/22/2022 59112 2 RxNorm swell ing Not Available [facility] 3 16:56:43 Medications Name Sig Start Date Stop Date Status Note LastModified by Organization Details LastModified Time amoxicill in 500 mg capsule TAKE 4 CAPSULES BY MOUTH 1 HOUR BEFORE DENTAL PROCEDUR E 02/02 completed Not Available Not Available Not Available methocarb felipa 500 mg tablet TAKE 2 TABLETS DAILY active Not Available Not Available No t Available silver sulfadiaz ine 1 % topical cream APPLY A 1/16 INCH (1.5 MM) THICK LAYER TO ENTIRE BURN AREA BY TOPICALR OUTE 2 TIMES PER DAY 09/15 completed Not Available Not Available Not Available azithromy jared 250 mg tablet TAKE 2 TABLETS (500 MG) BY ORAL ROUTE ONCE DAILY FOR 1 DAY THEN 1 TABLET (250 MG) BY ORAL ROUTE ONCE DAILY FOR 4 DAYS active Not Available Not Available No t Available ibuprofen 800 mg tablet Take 1 tablet twice a day by oral route with meals. active Not Available Not Available No t Available fluconazo le 150 mg tablet Take 1 tablet every day by oral route as directed for 3 days. active Not Available Not Available No t Available benzonata te 200 mg capsule TK 1 C PO TID active Not Available Not Available No t Available valacyclo vir 1 gram tablet TAKE 1 TABLET EVERY 12 HOURS NEEDED active Not Available Not Available No t Available hydrocodo ne 5 mg-acetam inophen 325 mg tablet 12/13 completed Not Available Not Available Not Available meloxicam 15 mg tablet TAKE 1 TABLET DAILY WITH FOOD NEEDED active Not Available Not Available No t Available metronida zole 0.75 % (37.5 mg/5 gram) vaginal gel 03/14 completed Not Available Not Available Not Available ondansetr on HCl 4 mg tablet Take 1 tablet every 8 hours by oral route as needed. active Not Available Not Available No t Available prednison e 20 mg tablet take 3 tabs po daily x 2 days, then 2 tabs po daily x 2 days, then 1 tab po daily x 2 days, then 1/2 tab po daily x 2 days active Not Available Not Available No t Available clonazepa m 1 mg tablet TAKE ONE AND ONE-HALF TABLETS AT BEDTIME active Not Available Not Available No t Available topiramat e 25 mg tablet active Not Available Not Available Not Available metronida zole 500 mg tablet Take 1 tablet every 12 hours by oral route. active Not Available Not Available No t Available phentermi ne 37.5 mg tablet TK 1 T PO QD active Not Available Not Available No t Available acetamino phen 300 mg-codein e 30 mg tablet Take 1 tablet every 8 hours by oral route as needed. 09/14 completed Not Available Not Available Not Available sulfameth oxazole 800 mg-trimet hoprim 160 mg tablet Take 1 tablet every 12 hours by oral route. active Not Available Not Available No t Available Wellbutri n SR 100 mg tablet, 12 hr sustained -release Take 1 tablet twice a day by oral route. 06/04 completed Not Available Not Available Not Available tramadol 50 mg tablet 01/31 completed Not Available Not Available Not Available ketorolac 30 mg/mL (1 mL) injection solution Inject 1 mL every 6 hours by intramus cular route. 09/07 completed [facility]:[id number] 1 Not Available Not Available Not Available amoxicill in 500 mg tablet TAKE FOUR TS PO 1 HOUR B DAPP 11/05 completed Not Available Not Available Not Available ondansetr on 8 mg disintegr ating tablet PLACE 1 T ON THE TONGUE Q 8 H PRN. DO NOT CHEW 01/31 completed Not Available Not Available Not Available ketorolac 10 mg tablet Take 1 tablet every 6 hours by oral route for 5 days. active Not Available Not Available No t Available amoxicill in 875 mg tablet TK 1 T PO Q 12 H active Not Available Not Available No t Available Kenalog 10 mg/mL suspensio n for injection in office procedur e, administ ered by provider 02/24 completed [facility]: [phone] 4-20 Not Available Not Available Not Available baclofen 10 mg tablet take one tab po TID pRN active Not Available Not Available No t Available hydrocodo ne 7.5 mg-acetam inophen 325 mg tablet TK 1 T PO Q 4 TO 6 H PRN 01/31 completed Not Available Not Available Not Available cephalexi n 500 mg capsule active Not Available Not Available Not Available erythromy jared 5 mg/gram (0.5 %) eye ointment 03/11 completed Not Available Not Available Not Available acyclovir 5 % topical ointment APPLY AA Q 3 H SIX TIMES D active Not Available Not Available No t Available neomycin- polymyxin -dexameth 3.5 mg/mL-10, 000 unit/mL-0 .1% eye drops active Not Available Not Available Not Available prednison e 50 mg tablet Take 1 tablet every day by oral route for 5 days. active Not Available Not Available No t Available Tobrex 0.3 % eye ointment APPLY A SMALL AMOUNT (1/2 INCH) TO THE LOWER LID right EYE BY OPHTHALM IC ROUTE 2 TIMES PER DAY 03/14 completed Not Available Not Available Not Available fluoxetin e 10 mg capsule one tab po daily active Not Available Not Available No t Available gabapenti n 300 mg capsule TK ONE C PO QHS X 3 DAYS ONE BID X 4 DAYS THEN 1 PO TID THEREAFT ER active Pt states she didn't like how it made her feel so she stopped taking it. Not Available Not Available Not Available diclofena c sodium 75 mg tablet,de layed release TAKE 1 TABLET BY MOUTH TWICE DAILY 02/24 completed Not Available Not Available Not Available acetamino phen 300 mg-codein e 60 mg tablet 01/31 completed Not Available Not Available Not Available cefuroxim e axetil 500 mg tablet active Not Available Not Available Not Available methylpre dnisolone 4 mg tablets in a dose pack FOLLOW PACKAGE DIRECTIO NS 10/29 completed Not Available Not Available Not Available gentamici n 0.3 % (3 mg/gram) eye ointment APPLY A SMALL AMOUNT (1/2 INCH) TO THE LOWER LID OF THE AFFECTED EYE(S) BY OPHTHALM IC ROUTE 2 TIMES PER DAY 03/14 completed getting erytromy acin instead due to gentamic in being on back order per pharmaci st. Not Available Not Available Not Available Vitamin D2 1,250 mcg (50,000 unit) capsule active Not Available Not Available Not Available doxycycli ne hyclate 100 mg tablet Take 1 tablet twice a day by oral route with meals. active Not Available Not Available No t Available amoxicill in 875 mg-potass ium clavulana te 125 mg tablet TAKE 1 TABLET BY MOUTH TWICE DAILY active Not Available Not Available No t Available bupropion HCl XL 150 mg 24 hr tablet, extended release TK 1 T PO QD 10/29 completed Not Available Not Available Not Available escitalop pauly 5 mg tablet active Not Available Not Available Not Available topiramat e 50 mg tablet TAKE 1 TABLET DAILY active Not Available Not Available No t Available duloxetin e 30 mg capsule,d elayed release TAKE 1 CAPSULE BY MOUTH DAILY active Not Available Not Available No t Available duloxetin e 60 mg capsule,d elayed release active Not Available Not Available Not Available ropivacai ne (PF) 5 mg/mL (0.5 %) injection solution in office procedur e, administ ered by provider 02/24 completed [facility] [address]4817-00 10-23 Not Available Not Available Not Available Fluvirin 2066-9465 (PF) 45 mcg (15 mcg x3)/0.5 mL intramusc ular syringe INJECT 0.5 ML INTRAMUS CULARLY DIRECTED . active Not Available Not Available No t Available Afluria Qd 2018- (36 mos up)(PF)60 mcg (15 mcg x4)/0.5 mL IM syringe ADM 0.5ML IM UTD 07/09 completed Not Available Not Available Not Available Ubrelvy 100 mg tablet TAKE 1 TABLET BY MOUTH AT ONSET OF MIGRAINE . MAY REPEAT IN 2 HOURS NEEDED. MAX 200 MG/ 24 HOUR 2022 active Not Available Not Available Not Avai lable Ubrelvy 50 mg tablet active Not Available Not Available Not Available [employer] COVID-19 Antigen Home Test kit 11/05 completed Not Available Not Available Not Available Vitals Date Recorded Body height Body temperature Body mass index (BMI) Body weight Respiratory rate Oxygen saturation Oxygen saturation in Arterial blood by Pulse oximetry Heart rate Systolic And Diastolic Provider Name and Address Organization Details Last Updated DateTime 3 162.56 cm 97.3 [degF] 30.6 kg/m2 69920.4 4 g 16 /min 98 % 98 % 72 /min 118/78 mm[Hg] JORDAN Stokes [facility] [employer] [facility] 3 17:03:10 Date Recorded Body height Provider Name an d Address Organization Details Last Updated DateTime 12/22/2022 162.56 cm Isabel Sanchez [facility] [employer] [facility] 12/22/2022 15:17:03 Date Recorded Body height Body temperature Body mass index (BMI) Body weight Oxygen saturation Oxygen saturation in Arterial blood by Pulse oximetry Heart rate Respiratory rate Systolic And Diastolic Provider Name and Address Organization Details Last Updated DateTime 3 162.56 cm 97.1 [degF] 28 kg/m2 47800.9 9 g 99 % 99 % 83 /min 16 /min 122/80 mm[Hg] Eboni Guido Jake [facility] 3 09:36:34 Date Recorded Body height Oxygen saturation Oxygen saturation in Arterial blood by Pulse oximetry Heart rate Respiratory rate Body temperature Systolic And Diastolic Provider Name and Address Organization Details Last Updated DateTime 2 162.56 cm 98 % 98 % 73 /min 16 /min 97.6 [degF] 122/76 mm[Hg] Not Available [facility] 3 16:55:24 Date Recorded Body height Body temperature Body mass index (BMI) Body weight Heart rate Oxygen saturation Oxygen saturation in Arterial blood by Pulse oximetry Systolic And Diastolic Provider Name and Address Organization Details Last Updated DateTime 3 162.56 cm 97.7 [degF] 28.8 kg/m2 99363.5 2 g 75 /min 98 % 98 % 114/60 mm[Hg] Marisol Pierce RN [facility] 3 17:13:29 Social History Question Answer Notes LastModified by Organizat ion Details LastModified Time Tobacco Smoking Status Never Smoker Marisol Pierce RN [facility], [facility] 05/30/2023 17:06:17 What Is Your Level Of Caffeine Consumption? Moderate Coffee [id number] Information not available 09/22/2022 How Much Tobacco Do You Chew? None [id number] Information not available 09/22/2022 In The 14 Days Before Symptom Onset, Have You Had Close Contact With A Laboratory-confirm ed COVID-19 While That Case Was Ill? No [email or web address] Information n ot available 05/30/2023 In The 14 Days Before Symptom Onset, Have You Had Close Contact With A Person Who Is Under Investigation For COVID-19 While That Person Was Ill? No [email or web address] Information not available 05/30/2023 What Type Of Diet Are You Following? REGULAR [id number] Information not available 09/22/2022 Which Illicit Or Recreational Drugs Have You Used? None [email or web address] Information not available 05/30/2023 Have There Been Any Changes To Your Family Or Social Situation? No [email or web address] Information no t available 05/30/2023 Do You Use Insect Repellent Routinely? No Information not available 05/30/2023 Do You Use Your Seat Belt Or Car Seat Routinely? Yes [email or web address] Information not available 05/30/2023 Do You Have Smoke And Carbon Monoxide Detectors In Your Home? Yes [email or web address] Information not available 05/30/2023 How Much Tobacco Do You Smoke? No [email or web address].[id number] Information not available 09/22/2022 Do You Use Sunscreen Routinely? Yes [email or web address] Information not available 05/30/2023 Have You Recently Traveled Abroad? No [email or web address] Information not available 05/30/2023 Do You Have Any Dietary Restrictions? No Information not available 05/30/2023 Sex: Unknown Functional Status Question Answer Note LastModified by Organizat ion Details LastModified Time Do you use any illicit or recreational drugs? No [email or web address] Information not available 05/30/2023 Do you or have you ever used any other forms of tobacco or nicotine? No [email or web address] Information not available 05/30/2023 What is your level of alcohol consumption? None [id number] Information not available 09/22/2022 Do you or have you ever used smokeless tobacco? Never used smokeless tobacco MIGRATION.[id number] Information not available 09/22/2022 Are you currently employed? Yes [email or web address] Information not available 05/30/2023 What is your occupation? teacher [email or web address] Information not available 05/30/2023 Do you or have you ever used e-cigarettes or vape? Never used electronic cigarettes [email or web address] Information not available 05/30/2023 What is your exercise level? None MIGRATION.[id number] Information not available 09/22/2022 Mental Status None recorded. Family History Relationship Description Onset Age of this Age Resolved Age Notes LastModified by Organization Details LastModified Time Mother Asthma [id number] Not available 09/22/2022 16:55:07 Mother Family history of stroke 84 [email or web address] Not available 12/2022 17:06:16 Father Depressive disorder [id number] Not available 09/22/2022 16:55:07 Sister Depressive disorder [id number] Not available 09/22/2022 16:55:07 Unspecified Relation Heart disease [id number] Not available 09/22/2022 16:55:07 Medical History Condition Response BREAST PROBLEMS Y HEADACHES/MIGRAINES Y ANXIETY DISORDER Y DEPRESSION (INCLUDING POST ) Y BACK / NECK PROBLEMS Y HERPES Y HIGH CHOLESTEROL / HYPERLIPIDEMIA Y Gynecological History Statement/Question Response Abnormal Pap N Date of Last Mammogram 09/25/2020 Date of Last Colonoscopy 07/25/2010 Most Recent Bone Density 09/25/2020 Date of LMP Sexually Active? Y Menses Monthly N Date of Last Pap 07/25/2016 Current Control Method Tubal Ligat ion Obstetrics History GPAL:G 0 P 0 0 2 0 Type Value Ectopics 2 Immunizations Vaccine Type Date Status Note Provider Nam e and Address Organization Details Recorded Time Influenza, split virus, quadrivalent, preservative 9 completed Not Available [facility] 09/22/2022 16:56:41 Influenza, split virus, quadrivalent, PF 0 completed Not Available [facility] 09/22/2022 16:56:41 Past Encounters Encounter ID Performer Location Encounter Start Date Encounter Closed Date Diagnosis/Indication Diagnosis SNOMED-CT Code Diagnosis ICD10 Code Diagnosis IMO Codes Diagnosis Note [id number] CALVIN Barfield [facility] [place] [address] [place] [address] 10/29/2020 00:00:00 11/18/2020 15:04:00 [id number] CALVIN Barfield [facility] [place] [address] [place] [address] 02/02/2021 00:00:00 02/19/2021 23:41:37 [id number] CALVIN Barfield [facility] [place] [address] [place] [address] 06/04/2021 00:00:00 06/23/2021 17:19:52 [id number] CALVIN Barfield [facility] [place] [address] [place] [address] 04/30/2022 00:00:00 05/24/2022 10:08:58 [id number] CALVIN Barfield [facility] [place] [address] [place] [address] 11/08/2022 16:57:17 11/08/2022 17:34:01 Hyperlipidemia 79147191 E78.5 next labs due fasting in december, diet controlled Mixed anxi ety and depressive disorder 155222333 F41.8 stable . no acute changes. Foot-drop gait 73889759 R26.89 stable. no acute change Headache 32797688 R51.9 increase lately in frequency. continue topamax and ubrelvy Long-term drug therapy 423825368 Z79.899 [id number] Hans Mosley MD [facility] [place] [address] [place] [address] 12/22/2022 14:50:25 12/22/2022 17:25:49 Pain of right knee joint 7687979034 54897 M25.561 [id number] CALVIN Barfield [facility] [place] [address] [place] [address] 02/24/2023 09:30:53 02/24/2023 10:16:38 Dizziness 604145232 R42 refer for MRI brain and IAC's. suspect dehyration is component on this dizziness and after questions, the hydration is lacking. push fluids, particular ly with electrolyt es like pedialyte. notify via portal how this is helping or not. if helping, we can hold off on mri brain. Blurring o f visual image 204233860 H53.8 as above. may be related to migraines [id number] CALVIN Barfield [facility] [place] [address] [place] [address] 05/30/2023 17:06:05 05/30/2023 17:36:16 Hyperlipidemia 52967071 E78.5 dietary controlled . repeat next summer. Mixed anxi ety and depressive disorder 785311963 F41.8 stable . no acute changes. Foot-drop gait 46952669 R26.89 stable. no acute change Headache 11291247 R51.9 continue topamax and ubrelvy Long-term drug therapy 736778241 Z79.899 Adult heal th examination 761596996 Z00.01 well exam completed Health Concerns Section Related Observation LastModified by Organization Detai ls LastModified Time None Recorded Concern Status LastModified by Organization Details LastModified Time None Recorded Advance Directives Directive None Recorded Payers Insurance Date Sequence Insurance Name Policy Number Policy Reagan Covered Member ID Reagan Member ID Guarantor Name 06/24/2023 1 [facility] HSA - CHOICE PLUS (POS) [id number] Janae Galeano [id number] Janae Galeano Notes Date Note Type Note Provider Name and Address Organization Details Recorded Time 11/09/19 23 text/htm l Anxiety/DepressionReported by PatientHPIFor severity, patient reportsdenies suicidal ideations,able to maintain relationships, anddoes not interfere with activities of daily living. For context, patient reportsno major life stressors. For associated symptoms, patient reportsdenies homicidal ideations,no significant weight gain,no significant weight loss,no visual/auditory hallucinations,no delusions, andno shortness of breath. For onset/timing, (stable). For modifying factors, (rx). HyperlipidemiaReported by PatientHPIFor duration, patient reportschronic. For compliance, patient reportsdoes not exercisebut reportscompliantandcompliant with diet. For control, patient reportsusually well controlled. For complications, patient reportsno coronary artery disease,no peripheral artery disease, andno cardiovascular disease. HeadacheReported by Patientchronic migraine hx. takes medication preventive and as needed for them. increase in frequency lately. CALVIN Barfield [address], [facility] [address], [place], [address], [facility] 11/19/2022 18:16:18 02/25/20 23 text/htm l DizzinessReported by PatientHPIFor associated symptoms, patient reportsblurred vision,ear discharge,earache,anxiety or unsteady feelings,headache,head pressure, andnauseabut reportsno foggy vision,no blindness,no spots in field of vision,no hearing loss,no difficulty understanding speech,no ringing in the ears,no pressure in ears,no noise in the ears,no feelings of fullness in the ears,no earache,no unsteadiness,no anxiety or unsteady feelings,no syncope,no loss of consciousness,no headache,no head pressure,no vomiting,no weak limbs,no facial numbness,no difficulty with speech,no dysphagia,no tingling around the mouth, andnormal stools. For quality, patient reportscannot identify. For duration, patient reportsconstant. For onset/timing, patient reportsactual date of onset: (2-3 weeks). For context, patient reportsnon-smoker. For medical history, patient reportsno er visits due to dizziness. For modifying factors, (standing/walking). For prior imaging, (nothing recent). CALVIN Barfield [address], [facility] [address], [place], [address], [facility] 03/25/2023 00:37:09 05/30/20 23 text/htm l Anxiety/DepressionReported by PatientHPIFor severity, patient reportsdenies suicidal ideations,able to maintain relationships, anddoes not interfere with activities of daily living. For context, patient reportsno major life stressors. For associated symptoms, patient reportsdenies homicidal ideations,no significant weight gain,no significant weight loss,no visual/auditory hallucinations,no delusions, andno shortness of breath. For onset/timing, (stable). For modifying factors, (rx). HyperlipidemiaReported by PatientHPIFor duration, patient reportschronic. For compliance, patient reportsdoes not exercisebut reportscompliantandcompliant with diet. For control, patient reportsusually well controlled. For complications, patient reportsno coronary artery disease,no peripheral artery disease, andno cardiovascular disease. HeadacheReported by Patientchronic migraine hx. takes medication preventive and as needed for them. increase in frequency lately. wellness CALVIN Barfield [address] [facility], [facility] [address], [place], [address], [facility] 06/23/2023 21:29:14 OBGyn Episode No OBEpisode recorded.
--- OUTSIDE RECORDS SUMMARY | 2025-06-03 00:16 | XMS_ITS | Data Portability ---
Author Organization [facility] Address [address] [place] [address] Care Team Providers Care Product Development Director Name Role Phone ALISSA WYATT Primary Care Provider Unavailab le Assessment Encounter Date Assessment Date Assessment LastModified by Organization Details LastModified Time 05/30/2024 05/30/2024 mammogram november 2023 pap smear UTD november 2023 Not available 05/30/2024 09:11:43 12/20/2024 12/20/2024 mammogram november 2024; Ultrasound diagnostic mammogram ordered by the breast specialist shows stable likely benign right breast masses with the recommended six-month follow-up of mammogram and limited breast ultrasound suggested. This was ordered by specialist pap smear UTD november 2023 Cologuard negative April 2022 Patient had labs drawn this morning and are pending Not available 12/20/2024 09:39:19 Plan of Treatment Reminders Order Date Submit Date Provider Last Modified By Organization Details Last Modified Time Details Appointments ANY 15 2024 03:30P CALVIN Malik Not available Not available Not available Lab noninvasi ve colorecta l cancer DNA + occult blood screening , QL, stool 2024 025 [facility], [address], [address], [place], [address], 05/24/2025 06:16:01 TSH + free T4, serum 2023 024 CHAY [facility], [address], [place], [address], 12/21/2024 13:08:06 lipid panel, serum 2023 024 CHAY [facility], [address], [place], [address], 12/21/2024 13:08:04 CBC w/ auto diff 2023 024 CHAY Lavinia, [address], [place], [address], 12/21/2024 13:08:11 CMP, serum or plasma 2023 024 CHAYMARIO Kate, [address], [place], [address], 12/21/2024 13:08:07 vitamin B12 + folate, serum or blood 2023 024 CAHY Kate, [address], [place], [address], 12/21/2024 13:08:08 HbA1c (hemoglob in A1c), blood 2023 024 CHAY Kate, [address], [place], [address], 12/21/2024 13:08:09 insulin, serum 2023 024 CHAY Kate, [address], [place], [address], 12/21/2024 13:08:10 rapid strep group A, throat 2023 024 In-Office Order, Internal Use Only DO Not Attach Compendium DO Not Attach Compendium, Do Not Delete/merge, [id number] 04/05/2024 16:13:25 TSH + free T4, serum 2023 024 [email or web address] [facility], [address], [place], [address], 12/19/2024 15:17:10 lipid panel, serum 2023 024 [email or web address] [facility], [address], [place], [address], 12/19/2024 15:17:24 CBC w/ auto diff 2023 024 [email or web address] [facility], [address], [place], [address], 12/19/2024 10:21:13 CMP, serum or plasma 2023 024 [email or web address] [facility], [address], [place], [address], 12/19/2024 15:17:02 vitamin B12 + folate, serum or blood 2023 024 [facility], [address], [place], [address], 12/19/2024 15:17:31 HbA1c (hemoglob in A1c), blood 2023 024 [email or web address] [facility], [address], [place], [address], 12/19/2024 15:17:16 Referral None recorded. Procedures None recorded. Surgeries None recorded. Imaging None recorded. Medication Orders None recorded. Patient TargetsNo targets recorded. Patient Instructions Encounter Date Encounter Id Patient Instructions Last Modified By Organization Details Last Modified Time 12/02/2023 [id number] A healthy lifestyle: care instructions Not available 12/19/2023 23:22:52 05/30/2024 [id number] A healthy lifestyle: care instructions Not available 05/30/2024 09:12:32 12/20/2024 [id number] A healthy lifestyle: care instructions Not available 12/20/2024 09:35:39 Reason for Referral None Reported. Results Created Date Observation Date Name Description Value Unit Range Abnormal Flag Note LastModifiedBy Organization Detail LastModifiedTime 11/22/19 24 11/22/2023 pap, IG + HR HPV Pap, HPV negati ve Not Available Not Available 15:04:09 04/04/20 24 04/04/2024 rapid strep group A, throa t Strep negati ve Not Available In-Office Order Internal Use Only DO Not Attach Compendium DO Not Attach Compendium, Do Not Delete/merge, [id number] 04/04/2024 15:49:02 07/28/19 25 07/28/2024 Compr ehens kalani metab olic 1999 panel - Serum or Plasm a sodium [moles/volum e] in serum or plasma 142 mmol/ L low: 136mmo l/Lhig h: 145mmo l/L SODIU M 142 136 - 145 mmol/ L 07/28 6:12 PM [employer]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[email or web address] [facility] Not Available Not Available 11/27/2024 12:34:34 07/28/19 25 07/28/2024 Compr ehens kalani metab olic 1999 panel - Serum or Plasm a potassium [moles/volum e] in serum or plasma 4.3 mmol/ L low: 3.4mmo l/Lhig h: 5.1mmo l/L POTAS SIUM 4.3 3.4 - 5.1 mmol/ L 07/28 6:12 PM WATER RESOURCES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[employer] [email or web address] [facility] Not Available Not Available 11/27/2024 12:34:34 07/28/19 25 07/28/2024 Compr ehens kalani metab olic 1999 panel - Serum or Plasm a chloride 106 mmol/ L low: 98mmol /Lhigh : 107mmo l/L CHLOR HOWARD 106 98 - 107 mmol/ L 07/28 6:12 PM [employer]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[employer] [email or web address] [facility] Not Available Not Available 11/27/2024 12:34:34 07/28/19 25 07/28/2024 Compr ehens kalani metab olic 1999 panel - Serum or Plasm a carbon dioxide, total [moles/volum e] in serum or plasma 23 mmol/ L low: 22mmol /Lhigh : 29mmol /L CO2 23 22 - 29 mmol/ L 07/28 6:12 PM [employer] [facility] Not Available Not Available 11/27/2024 12:34:34 07/28/19 25 07/28/2024 Compr ehens kalani metab olic 1999 panel - Serum or Plasm a calcium 10.5 mg/dL low: 8.6mg/ dLhigh : 10.4mg /dL high CALCI UM 10.5 (H) 8.6 - 10.4 mg/dL 07/28 6:12 PM [employer] [facility] Not Available Not Available 11/27/2024 12:34:34 07/28/19 25 07/28/2024 Compr ehens kalani metab olic 1999 panel - Serum or Plasm a BUN 18 mg/dL low: 6mg/dL high: 20mg/d L BUN 18 6 - 20 mg/dL 07/28 6:12 PM [facility] Not Available Not Available 11/27/2024 12:34:34 07/28/19 25 07/28/2024 Compr ehens kalani metab olic 1999 panel - Serum or Plasm a creatinine [mass/volume ] in serum or plasma 0.65 mg/dL low: 0.51mg /dLhig h: 0.95mg /dL CREAT ININE 0.65 0.51 - 0.95 mg/dL 07/28 6:12 PM WATER RESOURCES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[facility] Not Available Not Available 11/27/2024 12:34:34 07/28/19 25 07/28/2024 Compr ehens kalani metab olic 1999 panel - Serum or Plasm a glucose [mass/volume ] in serum or plasma 111 mg/dL low: 74mg/d Lhigh: 99mg/d L high GLUCO SE 111 (H) 74 - 99 mg/dL 07/28 6:12 PM [employer] [facility] Not Available Not Available 11/27/2024 12:34:34 07/28/19 25 07/28/2024 Compr ehens kalani metab olic 1999 panel - Serum or Plasm a total protein 6.5 g/dL low: 6.3g/d Lhigh: 8.7g/d L TOTAL PROTE IN 6.5 6.3 - 8.7 g/dL 07/28 6:12 PM [employer] [facility] Not Available Not Available 11/27/2024 12:34:34 07/28/19 25 07/28/2024 Compr ehens kalani metab olic 1999 panel - Serum or Plasm a albumin 4 g/dL low: 3.5g/d Lhigh: 5.2g/d L ALBUM IN 4.0 3.5 - 5.2 g/dL 07/28 6:12 PM [employer] [facility] Not Available Not Available 11/27/2024 12:34:34 07/28/19 25 07/28/2024 Compr ehens kalani metab olic 1999 panel - Serum or Plasm a bilirubin total 0.3 mg/dL low: 0.2mg/ dLhigh : 1.1mg/ dL BILIR UBIN TOTAL 0.3 0.2 - 1.1 mg/dL 07/28 6:12 PM [employer] [facility] Not Available Not Available 11/27/2024 12:34:34 07/28/19 25 07/28/2024 Compr ehens kalani metab olic 1999 panel - Serum or Plasm a alkaline phosphatase 83 U/L low: 40U/Lh igh: 150U/L ALKAL INE PHOSP HATAS E 83 40 - 150 U/L 07/28 6:12 PM [employer] [facility] Not Available Not Available 11/27/2024 12:34:34 07/28/19 25 07/28/2024 Compr ehens kalani metab olic 2000 panel - Serum or Plasm a AST 21 U/L low: 0U/Lhi gh: 33U/L AST 21 0 - 33 U/L 07/28 6:12 PM [employer] [facility] Not Available Not Available 11/27/2024 12:34:34 07/28/19 25 07/28/2024 Compr ehens kalani metab olic 2000 panel - Serum or Plasm a alanine aminotransfe rase [enzymatic activity/vol ume] in blood 22 U/L low: 0U/Lhi gh: 33U/L ALT 22 0 - 33 U/L 07/28 6:12 PM [facility] Not Available Not Available 11/27/2024 12:34:34 07/28/19 25 07/28/2024 Compr ehens kalani metab olic 2000 panel - Serum or Plasm a glomerular filtration rate [volume rate/area] in serum, plasma or blood by creatinine-b ased formula (CKD-epi 2020)/1.73 sq M text: >=60 mL/min /1.73 sq meter GFR >60 >=60 mL/mi n/1.7 3 sq meter 07/28 6:12 PM W[employer] RES[employer]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[facility] Not Available Not Available 11/27/2024 12:34:34 07/28/19 25 07/28/2024 Compr ehens kalani metab olic 2000 panel - Serum or Plasm a anion gap 13 mmol/ L low: 8mmol/ Lhigh: 16mmol /L ANION GAP 13 8 - 16 mmol/ L 07/28 6:12 PM [employer] [facility] Not Available Not Available 11/27/2024 12:34:34 07/28/19 25 07/28/2024 Compr ehens kalani metab olic 2000 panel - Serum or Plasm a interpretati on and review of laboratory results Abnorm al Not Available Not Available 12:34:34 07/28/19 25 07/28/2024 CBC W Auto Diffe renti al panel - Blood leukocytes [#/volume] in blood 9.8 K/uL low: 4K/uLh igh: 9.8K/u L WBC 9.8 4.0 - 9.8 K/uL 07/28 3:00 PM [employer] [facility] Not Available Not Available 11/27/2024 12:34:34 07/28/19 25 07/28/2024 CBC W Auto Diffe renti al panel - Blood RBC 4.4 text: 3.90 - 4.90 M/uL RBC 4.40 3.90 - 4.90 M/uL 07/28 3:00 PM [employer] [facility] Not Available Not Available 11/27/2024 12:34:34 07/28/19 25 07/28/2024 CBC W Auto Diffe renti al panel - Blood hemoglobin 13.9 g/dL low: 11.8g/ dLhigh : 14.8g/ dL HEMOG LOBIN 13.9 11.8 - 14.8 g/dL 07/28 3:00 PM [employer] [facility] Not Available Not Available 11/27/2024 12:34:34 07/28/19 25 07/28/2024 CBC W Auto Diffe renti al panel - Blood hematocrit [volume fraction] of blood by automated count 42.9 % low: 35.5%h igh: 44% HEMAT OCRIT 42.9 35.5 - 44.0 % 07/28 3:00 PM [employer] [facility] Not Available Not Available 11/27/2024 12:34:34 07/28/19 25 07/28/2024 CBC W Auto Diffe renti al panel - Blood MCV 97.5 fL low: 82fLhi gh: 99fL MCV 97.5 82.0 - 99.0 fL 07/28 3:00 PM [employer] [facility] Not Available Not Available 11/27/2024 12:34:34 07/28/19 25 07/28/2024 CBC W Auto Diffe renti al panel - Blood MCH 31.6 pg low: 27.2pg high: 32.6pg MCH 31.6 27.2 - 32.6 pg 07/28 3:00 PM [employer] [facility] Not Available Not Available 11/27/2024 12:34:34 07/28/19 25 07/28/2024 CBC W Auto Diffe renti al panel - Blood MCHC 32.4 g/dL low: 31.5g/ dLhigh : 35.5g/ dL MCHC 32.4 31.5 - 35.5 g/dL 07/28 3:00 PM [employer]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[facility] Not Available Not Available 11/27/2024 12:34:34 07/28/19 25 07/28/2024 CBC W Auto Diffe renti al panel - Blood RDW 13.2 % low: 11.5%h igh: 14.5% RDW 13.2 11.5 - 14.5 % 07/28 3:00 PM [facility] Not Available Not Available 11/27/2024 12:34:34 07/28/19 25 07/28/2024 CBC W Auto Diffe renti al panel - Blood RDW-stdev 47.1 fL low: 37.1fL high: 48.7fL RDW-S TDEV 47.1 37.1 - 48.7 fL 07/28 3:00 PM [facility] Not Available Not Available 11/27/2024 12:34:34 07/28/19 25 07/28/2024 CBC W Auto Diffe renti al panel - Blood platelets [#/volume] in blood by automated count 257 K/uL low: 140K/u Lhigh: 350K/u L PLATE LETS 257 140 - 350 K/uL 07/28 3:00 PM [facility] Not Available Not Available 11/27/2024 12:34:34 07/28/19 25 07/28/2024 CBC W Auto Diffe renti al panel - Blood MPV 9.8 fL low: 9.3fLh igh: 12.4fL MPV 9.8 9.3 - 12.4 fL 07/28 3:00 PM [facility] Not Available Not Available 11/27/2024 12:34:34 07/28/19 25 07/28/2024 CBC W Auto Diffe renti al panel - Blood neutrophils 84 % NEUTR OPHIL S 84 % 07/28 3:00 PM [facility] Not Available Not Available 11/27/2024 12:34:34 07/28/19 25 07/28/2024 CBC W Auto Diffe renti al panel - Blood lymphocytes/ leukocytes in blood by automated count 10 % LYMPH OCYTE S 10 % 07/28 3:00 PM [facility] Not Available Not Available 11/27/2024 12:34:34 07/28/19 25 07/28/2024 CBC W Auto Diffe renti al panel - Blood monocytes 5 % MONOC YTES 5 % 07/28 3:00 PM [facility] Not Available Not Available 11/27/2024 12:34:34 07/28/19 25 07/28/2024 CBC W Auto Diffe renti al panel - Blood eosinophils 0 % EOSIN OPHIL S 0 % 07/28 3:00 PM [facility] Not Available Not Available 11/27/2024 12:34:34 07/28/19 25 07/28/2024 CBC W Auto Diffe renti al panel - Blood basophils 0 % BASOP HILS 0 % 07/28 3:00 PM [facility] Not Available Not Available 11/27/2024 12:34:34 07/28/19 25 07/28/2024 CBC W Auto Diffe renti al panel - Blood immature granulocytes 1 % IMMAT URE GRANU LOCYT ES 1 % 07/28 3:00 PM [facility] Not Available Not Available 11/27/2024 12:34:34 07/28/19 25 07/28/2024 CBC W Auto Diffe renti al panel - Blood neutrophils [#/volume] in blood by automated count 8.21 K/uL low: 1.9K/u Lhigh: 7K/uL high NEUTR OPHIL ABSOL [place] 8.21 (H) 1.90 - 7.00 K/uL 07/28 3:00 PM [email or web address] Not Available Not Available 11/27/2024 12:34:34 07/28/19 25 07/28/2024 CBC W Auto Diffe renti al panel - Blood lymphocyte absolute 0.95 K/uL low: 0.7K/u Lhigh: 4.5K/u L LYMPH OCYTE ABSOL [place] 0.95 0.70 - 4.50 K/uL 07/28 3:00 PM 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 [facility] Not Available Not Available 11/27/2024 12:34:34 07/28/19 25 07/28/2024 CBC W Auto Diffe renti al panel - Blood monocyte absolute 0.46 K/uL low: 0.1K/u Lhigh: 1.3K/u L MONOC YTE ABSOL [place] 0.46 0.10 - 1.30 K/uL 07/28 3:00 PM W[employer] RESOURCES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[facility] Not Available Not Available 11/27/2024 12:34:34 07/28/1907/28/2024 CBC W Auto Diffe renti al panel - Blood eosinophil absolute 0.02 K/uL low: 0K/uLh igh: 0.7K/u L EOSIN OPHIL ABSOL [place] 0.02 0.00 - 0.70 K/uL 07/28 3:00 PM WATER RESOURCES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[facility] Not Available Not Available 11/27/2024 12:34:34 07/28/19 25 07/28/2024 CBC W Auto Diffe renti al panel - Blood basophils absolute 0.03 K/uL low: 0K/uLh igh: 0.2K/u L BASOP HILS ABSOL [place] 0.03 0.00 - 0.20 K/uL 07/28 3:00 PM [facility] Not Available Not Available 11/27/2024 12:34:34 07/28/1907/28/2024 CBC W Auto Diffe renti al panel - Blood immature granulocytes absolute 0.1 K/uL low: 0K/uLh igh: 0.03K/ uL high IMMAT URE GRANU LOCYT ES ABSOL [place] 0.10 (H) 0.00 - 0.03 K/uL 07/28 3:00 PM W[employer] RESOURCES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[employer] [facility] Not Available Not Available 11/27/2024 12:34:34 07/28/19 25 07/28/2024 CBC W Auto Diffe renti al panel - Blood interpretati on and review of laboratory results Abnorm al Not Available Not Available 12:34:34 07/30/1907/30/2024 Basic metab olic 1999 panel - Serum or Plasm a sodium [moles/volum e] in serum or plasma 139 mmol/ L low: 136mmo l/Lhig h: 145mmo l/L SODIU M 139 136 - 145 mmol/ L 07/30 1:06 AM [employer] [facility] Not Available Not Available 11/27/2024 12:34:34 07/30/19 25 07/30/2024 Basic metab olic 1999 panel - Serum or Plasm a potassium [moles/volum e] in serum or plasma 3.6 mmol/ L low: 3.4mmo l/Lhig h: 5.1mmo l/L POTAS SIUM 3.6 3.4 - 5.1 mmol/ L 07/30 1:06 AM [employer] [email or web address] Not Available Not Available 11/27/2024 12:34:34 07/30/19 25 07/30/2024 Basic metab olic 1999 panel - Serum or Plasm a chloride 107 mmol/ L low: 98mmol /Lhigh : 107mmo l/L CHLOR HOWARD 107 98 - 107 mmol/ L 07/30 1:06 AM [employer] [email or web address] Not Available Not Available 11/27/2024 12:34:34 07/30/19 25 07/30/2024 Basic metab olic 1999 panel - Serum or Plasm a carbon dioxide, total [moles/volum e] in serum or plasma 22 mmol/ L low: 22mmol /Lhigh : 29mmol /L CO2 22 22 - 29 mmol/ L 07/30 1:06 AM [email or web address] [facility] Not Available Not Available 11/27/2024 12:34:34 07/30/19 25 07/30/2024 Basic metab olic 1999 panel - Serum or Plasm a calcium 9.8 mg/dL low: 8.6mg/ dLhigh : 10.4mg /dL CALCI UM 9.8 8.6 - 10.4 mg/dL 07/30 1:06 AM [employer] [facility] Not Available Not Available 11/27/2024 12:34:34 07/30/19 25 07/30/2024 Basic metab olic 2000 panel - Serum or Plasm a BUN 10 mg/dL low: 6mg/dL high: 20mg/d L BUN 10 6 - 20 mg/dL 07/30 1:06 AM [employer] [facility] Not Available Not Available 11/27/2024 12:34:34 07/30/19 25 07/30/2024 Basic metab olic 1999 panel - Serum or Plasm a creatinine [mass/volume ] in serum or plasma 0.67 mg/dL low: 0.51mg /dLhig h: 0.95mg /dL CREAT ININE 0.67 0.51 - 0.95 mg/dL 07/30 1:06 AM [employer] [facility] Not Available Not Available 11/27/2024 12:34:34 07/30/1907/30/2024 Basic metab olic 2000 panel - Serum or Plasm a glucose [mass/volume ] in serum or plasma 114 mg/dL low: 74mg/d Lhigh: 99mg/d L high GLUCO SE 114 (H) 74 - 99 mg/dL 07/30 1:06 AM [employer] [facility] Not Available Not Available 11/27/2024 12:34:34 07/30/1907/30/2024 Basic metab olic 2000 panel - Serum or Plasm a glomerular filtration rate [volume rate/area] in serum, plasma or blood by creatinine-b ased formula (CKD-epi 2020)/1.73 sq M text: >=60 mL/min /1.73 sq meter GFR >60 >=60 mL/mi n/1.7 3 sq meter 07/30 1:06 AM [employer] [facility] Not Available Not Available 11/27/2024 12:34:34 07/30/19 25 07/30/2024 Basic metab olic 2000 panel - Serum or Plasm a anion gap 10 mmol/ L low: 8mmol/ Lhigh: 16mmol /L ANION GAP 10 8 - 16 mmol/ L 07/30 1:06 AM [facility] Not Available Not Available 11/27/2024 12:34:34 07/30/19 25 07/30/2024 Basic metab olic 2000 panel - Serum or Plasm a interpretati on and review of laboratory results Abnorm al Not Available Not Available 12:34:34 07/30/1907/30/2024 CBC W Auto Diffe renti al panel - Blood leukocytes [#/volume] in blood 7.6 K/uL low: 4K/uLh igh: 9.8K/u L WBC 7.6 4.0 - 9.8 K/uL 07/30 12:37 AM [facility]zMISS[facility] [email or web address] Not Available Not Available 11/27/2024 12:34:34 07/30/1907/30/2024 CBC W Auto Diffe renti al panel - Blood RBC 4.05 text: 3.90 - 4.90 M/uL RBC 4.05 3.90 - 4.90 M/uL 07/30 12:37 AM [facility] Not Available Not Available 11/27/2024 12:34:34 07/30/19 25 07/30/2024 CBC W Auto Diffe renti al panel - Blood hemoglobin 12.9 g/dL low: 11.8g/ dLhigh : 14.8g/ dL HEMOG LOBIN 12.9 11.8 - 14.8 g/dL 07/30 12:37 AM [employer] [email or web address] Not Available Not Available 11/27/2024 12:34:34 07/30/19 25 07/30/2024 CBC W Auto Diffe renti al panel - Blood hematocrit [volume fraction] of blood by automated count 38.9 % low: 35.5%h igh: 44% HEMAT OCRIT 38.9 35.5 - 44.0 % 07/30 12:37 AM [facility] Not Available Not Available 11/27/2024 12:34:34 07/30/19 25 07/30/2024 CBC W Auto Diffe renti al panel - Blood MCV 96 fL low: 82fLhi gh: 99fL MCV 96.0 82.0 - 99.0 fL 07/30 12:37 AM [facility] Not Available Not Available 11/27/2024 12:34:34 07/30/19 25 07/30/2024 CBC W Auto Diffe renti al panel - Blood MCH 31.9 pg low: 27.2pg high: 32.6pg MCH 31.9 27.2 - 32.6 pg 07/30 12:37 AM [employer] [facility] Not Available Not Available 11/27/2024 12:34:34 07/30/19 25 07/30/2024 CBC W Auto Diffe renti al panel - Blood MCHC 33.2 g/dL low: 31.5g/ dLhigh : 35.5g/ dL MCHC 33.2 31.5 - 35.5 g/dL 07/30 12:37 AM [employer] [facility] Not Available Not Available 11/27/2024 12:34:34 07/30/19 25 07/30/2024 CBC W Auto Diffe renti al panel - Blood RDW 13.3 % low: 11.5%h igh: 14.5% RDW 13.3 11.5 - 14.5 % 07/30 12:37 AM [employer] [facility] Not Available Not Available 11/27/2024 12:34:34 07/30/19 25 07/30/2024 CBC W Auto Diffe renti al panel - Blood RDW-stdev 47.5 fL low: 37.1fL high: 48.7fL RDW-S TDEV 47.5 37.1 - 48.7 fL 07/30 12:37 AM [facility] Not Available Not Available 11/27/2024 12:34:34 07/30/19 25 07/30/2024 CBC W Auto Diffe renti al panel - Blood platelets [#/volume] in blood by automated count 213 K/uL low: 140K/u Lhigh: 350K/u L PLATE LETS 213 140 - 350 K/uL 07/30 12:37 AM [facility] Not Available Not Available 11/27/2024 12:34:34 07/30/19 25 07/30/2024 CBC W Auto Diffe renti al panel - Blood MPV 9.5 fL low: 9.3fLh igh: 12.4fL MPV 9.5 9.3 - 12.4 fL 07/30 12:37 AM [employer] [facility] Not Available Not Available 11/27/2024 12:34:34 07/30/19 25 07/30/2024 CBC W Auto Diffe renti al panel - Blood neutrophils 70 % NEUTR OPHIL S 70 % 07/30 12:37 AM [employer] [facility] Not Available Not Available 11/27/2024 12:34:34 07/30/19 25 07/30/2024 CBC W Auto Diffe renti al panel - Blood lymphocytes/ leukocytes in blood by automated count 19 % LYMPH OCYTE S 19 % 07/30 12:37 AM [employer] [facility] Not Available Not Available 11/27/2024 12:34:34 07/30/19 25 07/30/2024 CBC W Auto Diffe renti al panel - Blood monocytes 10 % MONOC YTES 10 % 07/30 12:37 AM [employer] [facility] Not Available Not Available 11/27/2024 12:34:34 07/30/19 25 07/30/2024 CBC W Auto Diffe renti al panel - Blood eosinophils 2 % EOSIN OPHIL S 2 % 07/30 12:37 AM [employer] [facility] Not Available Not Available 11/27/2024 12:34:34 07/30/19 25 07/30/2024 CBC W Auto Diffe renti al panel - Blood basophils 0 % BASOP HILS 0 % 07/30 12:37 AM [facility] Not Available Not Available 11/27/2024 12:34:34 07/30/19 25 07/30/2024 CBC W Auto Diffe renti al panel - Blood immature granulocytes 0 % IMMAT URE GRANU LOCYT ES 0 % 07/30 12:37 AM [facility] Not Available Not Available 11/27/2024 12:34:34 07/30/19 25 07/30/2024 CBC W Auto Diffe renti al panel - Blood neutrophils [#/volume] in blood by automated count 5.29 K/uL low: 1.9K/u Lhigh: 7K/uL NEUTR OPHIL ABSOL [place] 5.29 1.90 - 7.00 K/uL 07/30 12:37 AM 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[facility] Not Available Not Available 11/27/2024 12:34:34 07/30/19 25 07/30/2024 CBC W Auto Diffe renti al panel - Blood lymphocyte absolute 1.41 K/uL low: 0.7K/u Lhigh: 4.5K/u L LYMPH OCYTE ABSOL [place] 1.41 0.70 - 4.50 K/uL 07/30 12:37 AM 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[facility] Not Available Not Available 11/27/2024 12:34:34 07/30/19 25 07/30/2024 CBC W Auto Diffe renti al panel - Blood monocyte absolute 0.76 K/uL low: 0.1K/u Lhigh: 1.3K/u L MONOC YTE ABSOL [place] 0.76 0.10 - 1.30 K/uL 07/30 12:37 AM [employer] [facility] Not Available Not Available 11/27/2024 12:34:34 07/30/19 25 07/30/2024 CBC W Auto Diffe renti al panel - Blood eosinophil absolute 0.12 K/uL low: 0K/uLh igh: 0.7K/u L EOSIN OPHIL ABSOL [place] 0.12 0.00 - 0.70 K/uL 07/30 12:37 AM [employer] [facility] Not Available Not Available 11/27/2024 12:34:34 07/30/19 25 07/30/2024 CBC W Auto Diffe renti al panel - Blood basophils absolute 0.03 K/uL low: 0K/uLh igh: 0.2K/u L BASOP HILS ABSOL [place] 0.03 0.00 - 0.20 K/uL 07/30 12:37 AM [employer] [facility] Not Available Not Available 11/27/2024 12:34:34 07/30/19 25 07/30/2024 CBC W Auto Diffe renti al panel - Blood immature granulocytes absolute 0 K/uL low: 0K/uLh igh: 0.03K/ uL IMMAT URE GRANU LOCYT ES ABSOL [place] 0.00 0.00 - 0.03 K/uL 07/30 12:37 AM [employer] [facility] Not Available Not Available 11/27/2024 12:34:34 07/31/19 25 07/31/2024 CBC W Auto Diffe renti al panel - Blood leukocytes [#/volume] in blood 9.4 K/uL low: 4K/uLh igh: 9.8K/u L WBC 9.4 4.0 - 9.8 K/uL 07/31 5:43 AM [employer] [facility] Not Available Not Available 11/27/2024 12:34:34 07/31/19 25 07/31/2024 CBC W Auto Diffe renti al panel - Blood RBC 2.93 text: 3.90 - 4.90 M/uL low RBC 2.93 (L) 3.90 - 4.90 M/uL 07/31 5:43 AM [employer] [facility] Not Available Not Available 11/27/2024 12:34:34 07/31/19 25 07/31/2024 CBC W Auto Diffe renti al panel - Blood hemoglobin 9.4 g/dL low: 11.8g/ dLhigh : 14.8g/ dL low HEMOG LOBIN 9.4 (L) 11.8 - 14.8 g/dL 07/31 5:43 AM [employer] [facility] Not Available Not Available 11/27/2024 12:34:34 07/31/19 25 07/31/2024 CBC W Auto Diffe renti al panel - Blood hematocrit [volume fraction] of blood by automated count 28.5 % low: 35.5%h igh: 44% low HEMAT OCRIT 28.5 (L) 35.5 - 44.0 % 07/31 5:43 AM [employer] [facility] Not Available Not Available 11/27/2024 12:34:34 07/31/19 25 07/31/2024 CBC W Auto Diffe renti al panel - Blood MCV 97.3 fL low: 82fLhi gh: 99fL MCV 97.3 82.0 - 99.0 fL 07/31 5:43 AM [employer] [facility] Not Available Not Available 11/27/2024 12:34:34 07/31/19 25 07/31/2024 CBC W Auto Diffe renti al panel - Blood MCH 32.1 pg low: 27.2pg high: 32.6pg MCH 32.1 27.2 - 32.6 pg 07/31 5:43 AM [employer] [facility] Not Available Not Available 11/27/2024 12:34:34 07/31/19 25 07/31/2024 CBC W Auto Diffe renti al panel - Blood MCHC 33 g/dL low: 31.5g/ dLhigh : 35.5g/ dL MCHC 33.0 31.5 - 35.5 g/dL 07/31 5:43 AM [employer] [facility] Not Available Not Available 11/27/2024 12:34:34 07/31/19 25 07/31/2024 CBC W Auto Diffe renti al panel - Blood RDW 13.4 % low: 11.5%h igh: 14.5% RDW 13.4 11.5 - 14.5 % 07/31 5:43 AM [employer] [facility] Not Available Not Available 11/27/2024 12:34:34 07/31/19 25 07/31/2024 CBC W Auto Diffe renti al panel - Blood RDW-stdev 48 fL low: 37.1fL high: 48.7fL RDW-S TDEV 48.0 37.1 - 48.7 fL 07/31 5:43 AM [employer] [facility] Not Available Not Available 11/27/2024 12:34:34 07/31/19 25 07/31/2024 CBC W Auto Diffe renti al panel - Blood platelets [#/volume] in blood by automated count 172 K/uL low: 140K/u Lhigh: 350K/u L PLATE LETS 172 140 - 350 K/uL 07/31 5:43 AM [employer] [facility] Not Available Not Available 11/27/2024 12:34:34 07/31/19 25 07/31/2024 CBC W Auto Diffe renti al panel - Blood MPV 9.7 fL low: 9.3fLh igh: 12.4fL MPV 9.7 9.3 - 12.4 fL 07/31 5:43 AM [facility] Not Available Not Available 11/27/2024 12:34:34 07/31/19 25 07/31/2024 CBC W Auto Diffe renti al panel - Blood neutrophils 70 % NEUTR OPHIL S 70 % 07/31 5:43 AM [facility] Not Available Not Available 11/27/2024 12:34:34 07/31/19 25 07/31/2024 CBC W Auto Diffe renti al panel - Blood lymphocytes/ leukocytes in blood by automated count 19 % LYMPH OCYTE S 19 % 07/31 5:43 AM [employer] [email or web address] Not Available Not Available 11/27/2024 12:34:34 07/31/19 25 07/31/2024 CBC W Auto Diffe renti al panel - Blood monocytes 10 % MONOC YTES 10 % 07/31 5:43 AM [employer] [facility] Not Available Not Available 11/27/2024 12:34:34 07/31/19 25 07/31/2024 CBC W Auto Diffe renti al panel - Blood eosinophils 1 % EOSIN OPHIL S 1 % 07/31 5:43 AM [employer] [facility] Not Available Not Available 11/27/2024 12:34:34 07/31/19 25 07/31/2024 CBC W Auto Diffe renti al panel - Blood basophils 0 % BASOP HILS 0 % 07/31 5:43 AM [employer]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[employer] [facility] Not Available Not Available 11/27/2024 12:34:34 07/31/19 25 07/31/2024 CBC W Auto Diffe renti al panel - Blood immature granulocytes 0 % IMMAT URE GRANU LOCYT ES 0 % 07/31 5:43 AM [employer]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[employer] [facility] Not Available Not Available 11/27/2024 12:34:34 07/31/19 25 07/31/2024 CBC W Auto Diffe renti al panel - Blood neutrophils [#/volume] in blood by automated count 6.59 K/uL low: 1.9K/u Lhigh: 7K/uL NEUTR OPHIL ABSOL [place] 6.59 1.90 - 7.00 K/uL 07/31 5:43 AM [employer] [facility] Not Available Not Available 11/27/2024 12:34:34 07/31/19 25 07/31/2024 CBC W Auto Diffe renti al panel - Blood lymphocyte absolute 1.78 K/uL low: 0.7K/u Lhigh: 4.5K/u L LYMPH OCYTE ABSOL [place] 1.78 0.70 - 4.50 K/uL 07/31 5:43 AM [facility] Not Available Not Available 11/27/2024 12:34:34 07/31/19 25 07/31/2024 CBC W Auto Diffe renti al panel - Blood monocyte absolute 0.92 K/uL low: 0.1K/u Lhigh: 1.3K/u L MONOC YTE ABSOL [place] 0.92 0.10 - 1.30 K/uL 07/31 5:43 AM [employer] [facility] Not Available Not Available 11/27/2024 12:34:34 07/31/1907/31/2024 CBC W Auto Diffe renti al panel - Blood eosinophil absolute 0.07 K/uL low: 0K/uLh igh: 0.7K/u L EOSIN OPHIL ABSOL [place] 0.07 0.00 - 0.70 K/uL 07/31 5:43 AM [employer] [facility] Not Available Not Available 11/27/2024 12:34:34 07/31/1907/31/2024 CBC W Auto Diffe renti al panel - Blood basophils absolute 0.03 K/uL low: 0K/uLh igh: 0.2K/u L BASOP HILS ABSOL [place] 0.03 0.00 - 0.20 K/uL 07/31 5:43 AM [employer] [facility] Not Available Not Available 11/27/2024 12:34:34 07/31/19 25 07/31/2024 CBC W Auto Diffe renti al panel - Blood immature granulocytes absolute 0.03 K/uL low: 0K/uLh igh: 0.03K/ uL IMMAT URE GRANU LOCYT ES ABSOL [place] 0.03 0.00 - 0.03 K/uL 07/31 5:43 AM [employer] [facility] Not Available Not Available 11/27/2024 12:34:34 07/31/1907/31/2024 CBC W Auto Diffe renti al panel - Blood interpretati on and review of laboratory results Abnorm al Not Available Not Available 12:34:34 08/01/1908/01/2024 Basic metab olic 2000 panel - Serum or Plasm a sodium [moles/volum e] in serum or plasma 142 mmol/ L low: 136mmo l/Lhig h: 145mmo l/L SODIU M 142 136 - 145 mmol/ L 08/01 10:29 AM [employer]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 Not Available Not Available 11/27/2024 12:34:34 08/01/19 25 08/01/2024 Basic metab olic 1999 panel - Serum or Plasm a chloride 111 mmol/ L low: 98mmol /Lhigh : 107mmo l/L high CHLOR HOWARD 111 (H) 98 - 107 mmol/ L 08/01 10:29 AM [facility] [email or web address] [facility] Not Available Not Available 11/27/2024 12:34:34 08/01/19 25 08/01/2024 Basic metab olic 1999 panel - Serum or Plasm a carbon dioxide, total [moles/volum e] in serum or plasma 20 mmol/ L low: 22mmol /Lhigh : 29mmol /L low CO2 20 (L) 22 - 29 mmol/ L 08/01 10:29 AM 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 [facility] Not Available Not Available 11/27/2024 12:34:34 08/01/19 25 08/01/2024 Basic metab olic 1999 panel - Serum or Plasm a calcium 9.1 mg/dL low: 8.6mg/ dLhigh : 10.4mg /dL CALCI UM 9.1 8.6 - 10.4 mg/dL 08/01 10:29 AM [facility] [employer] [facility] Not Available Not Available 11/27/2024 12:34:34 08/01/19 25 08/01/2024 Basic metab olic 2000 panel - Serum or Plasm a BUN 8 mg/dL low: 6mg/dL high: 20mg/d L BUN 8 6 - 20 mg/dL 08/01 10:29 AM [employer] [facility] Not Available Not Available 11/27/2024 12:34:34 08/01/1908/01/2024 Basic metab olic 2000 panel - Serum or Plasm a creatinine [mass/volume ] in serum or plasma 0.51 mg/dL low: 0.51mg /dLhig h: 0.95mg /dL CREAT ININE 0.51 0.51 - 0.95 mg/dL 08/01 10:29 AM [employer] Not Available Not Available 11/27/2024 12:34:34 08/01/19 25 08/01/2024 Basic metab olic 2000 panel - Serum or Plasm a glucose [mass/volume ] in serum or plasma 154 mg/dL low: 74mg/d Lhigh: 99mg/d L high GLUCO SE 154 (H) 74 - 99 mg/dL 08/01 10:29 AM [employer] [facility] Not Available Not Available 11/27/2024 12:34:34 08/01/1908/01/2024 Basic metab olic 2000 panel - Serum or Plasm a glomerular filtration rate [volume rate/area] in serum, plasma or blood by creatinine-b ased formula (CKD-epi 2020)/1.73 sq M text: >=60 mL/min /1.73 sq meter GFR >60 >=60 mL/mi n/1.7 3 sq meter 08/01 10:29 AM [employer] Not Available Not Available 11/27/2024 12:34:34 08/01/1908/01/2024 Basic metab olic 2000 panel - Serum or Plasm a anion gap 11 mmol/ L low: 8mmol/ Lhigh: 16mmol /L ANION GAP 11 8 - 16 mmol/ L 08/01 10:29 AM [employer] [facility] Not Available Not Available 11/27/2024 12:34:34 08/01/19 25 08/01/2024 Basic metab olic 2000 panel - Serum or Plasm a interpretati on and review of laboratory results Abnorm al Not Available Not Available 12:34:34 08/01/19 25 08/01/2024 CBC W Auto Diffe renti al panel - Blood leukocytes [#/volume] in blood 7.5 K/uL low: 4K/uLh igh: 9.8K/u L WBC 7.5 4.0 - 9.8 K/uL 08/01 10:10 AM [email or web address] [email or web address] Not Available Not Available 11/27/2024 12:34:34 08/01/19 25 08/01/2024 CBC W Auto Diffe renti al panel - Blood RBC 2.62 text: 3.90 - 4.90 M/uL low RBC 2.62 (L) 3.90 - 4.90 M/uL 08/01 10:10 AM [facility] Not Available Not Available 11/27/2024 12:34:34 08/01/1908/01/2024 CBC W Auto Diffe renti al panel - Blood hemoglobin 8.4 g/dL low: 11.8g/ dLhigh : 14.8g/ dL low HEMOG LOBIN 8.4 (L) 11.8 - 14.8 g/dL 08/01 10:10 AM [facility] Not Available Not Available 11/27/2024 12:34:34 08/01/1908/01/2024 CBC W Auto Diffe renti al panel - Blood hematocrit [volume fraction] of blood by automated count 25.1 % low: 35.5%h igh: 44% low HEMAT OCRIT 25.1 (L) 35.5 - 44.0 % 08/01 10:10 AM [employer] [email or web address] Not Available Not Available 11/27/2024 12:34:34 08/01/1908/01/2024 CBC W Auto Diffe renti al panel - Blood MCV 95.8 fL low: 82fLhi gh: 99fL MCV 95.8 82.0 - 99.0 fL 08/01 10:10 AM [employer] [email or web address] Not Available Not Available 11/27/2024 12:34:34 08/01/19 25 08/01/2024 CBC W Auto Diffe renti al panel - Blood MCH 32.1 pg low: 27.2pg high: 32.6pg MCH 32.1 27.2 - 32.6 pg 08/01 10:10 AM [facility] Not Available Not Available 11/27/2024 12:34:34 08/01/19 25 08/01/2024 CBC W Auto Diffe renti al panel - Blood MCHC 33.5 g/dL low: 31.5g/ dLhigh : 35.5g/ dL MCHC 33.5 31.5 - 35.5 g/dL 08/01 10:10 AM [employer] [facility] Not Available Not Available 11/27/2024 12:34:34 08/01/19 25 08/01/2024 CBC W Auto Diffe renti al panel - Blood RDW 13.2 % low: 11.5%h igh: 14.5% RDW 13.2 11.5 - 14.5 % 08/01 10:10 AM [employer] [facility] Not Available Not Available 11/27/2024 12:34:34 08/01/19 25 08/01/2024 CBC W Auto Diffe renti al panel - Blood RDW-stdev 46.9 fL low: 37.1fL high: 48.7fL RDW-S TDEV 46.9 37.1 - 48.7 fL 08/01 10:10 AM [employer] [facility] Not Available Not Available 11/27/2024 12:34:34 08/01/19 25 08/01/2024 CBC W Auto Diffe renti al panel - Blood platelets [#/volume] in blood by automated count 166 K/uL low: 140K/u Lhigh: 350K/u L PLATE LETS 166 140 - 350 K/uL 08/01 10:10 AM [facility] Not Available Not Available 11/27/2024 12:34:34 08/01/19 25 08/01/2024 CBC W Auto Diffe renti al panel - Blood MPV 10.1 fL low: 9.3fLh igh: 12.4fL MPV 10.1 9.3 - 12.4 fL 08/01 10:10 AM [employer] [facility] Not Available Not Available 11/27/2024 12:34:34 08/01/19 25 08/01/2024 CBC W Auto Diffe renti al panel - Blood neutrophils 78 % NEUTR OPHIL S 78 % 08/01 10:10 AM [employer] [facility] Not Available Not Available 11/27/2024 12:34:34 08/01/19 25 08/01/2024 CBC W Auto Diffe renti al panel - Blood lymphocytes/ leukocytes in blood by automated count 12 % LYMPH OCYTE S 12 % 08/01 10:10 AM [employer] [facility] Not Available Not Available 11/27/2024 12:34:34 08/01/19 25 08/01/2024 CBC W Auto Diffe renti al panel - Blood monocytes 7 % MONOC YTES 7 % 08/01 10:10 AM [employer] [facility] Not Available Not Available 11/27/2024 12:34:34 08/01/19 25 08/01/2024 CBC W Auto Diffe renti al panel - Blood eosinophils 3 % EOSIN OPHIL S 3 % 08/01 10:10 AM [employer] [facility] Not Available Not Available 11/27/2024 12:34:34 08/01/19 25 08/01/2024 CBC W Auto Diffe renti al panel - Blood basophils 0 % BASOP HILS 0 % 08/01 10:10 AM [employer] [facility] Not Available Not Available 11/27/2024 12:34:34 08/01/19 25 08/01/2024 CBC W Auto Diffe renti al panel - Blood immature granulocytes 0 % IMMAT URE GRANU LOCYT ES 0 % 08/01 10:10 AM [employer] [facility] Not Available Not Available 11/27/2024 12:34:34 08/01/19 25 08/01/2024 CBC W Auto Diffe renti al panel - Blood neutrophils [#/volume] in blood by automated count 5.82 K/uL low: 1.9K/u Lhigh: 7K/uL NEUTR OPHIL ABSOL [place] 5.82 1.90 - 7.00 K/uL 08/01 10:10 AM [facility] Not Available Not Available 11/27/2024 12:34:34 08/01/19 25 08/01/2024 CBC W Auto Diffe renti al panel - Blood lymphocyte absolute 0.91 K/uL low: 0.7K/u Lhigh: 4.5K/u L LYMPH OCYTE ABSOL [place] 0.91 0.70 - 4.50 K/uL 08/01 10:10 AM [facility] Not Available Not Available 11/27/2024 12:34:34 08/01/1908/01/2024 CBC W Auto Diffe renti al panel - Blood monocyte absolute 0.51 K/uL low: 0.1K/u Lhigh: 1.3K/u L MONOC YTE ABSOL [place] 0.51 0.10 - 1.30 K/uL 08/01 10:10 AM [facility] Not Available Not Available 11/27/2024 12:34:34 08/01/19 25 08/01/2024 CBC W Auto Diffe renti al panel - Blood eosinophil absolute 0.22 K/uL low: 0K/uLh igh: 0.7K/u L EOSIN OPHIL ABSOL [place] 0.22 0.00 - 0.70 K/uL 08/01 10:10 AM [facility] Not Available Not Available 11/27/2024 12:34:34 08/01/19 25 08/01/2024 CBC W Auto Diffe renti al panel - Blood basophils absolute 0.02 K/uL low: 0K/uLh igh: 0.2K/u L BASOP HILS ABSOL [place] 0.02 0.00 - 0.20 K/uL 08/01 10:10 AM [employer] [facility] Not Available Not Available 11/27/2024 12:34:34 08/01/19 25 08/01/2024 CBC W Auto Diffe renti al panel - Blood immature granulocytes absolute 0.03 K/uL low: 0K/uLh igh: 0.03K/ uL IMMAT URE GRANU LOCYT ES ABSOL [place] 0.03 0.00 - 0.03 K/uL 08/01 10:10 AM [employer] [facility] Not Available Not Available 11/27/2024 12:34:34 08/01/19 25 08/01/2024 CBC W Auto Diffe renti al panel - Blood interpretati on and review of laboratory results Abnorm al Not Available Not Available 12:34:34 08/02/19 25 08/02/2024 Basic metab olic 1999 panel - Serum or Plasm a sodium [moles/volum e] in serum or plasma 142 mmol/ L low: 136mmo l/Lhig h: 145mmo l/L SODIU M 142 136 - 145 mmol/ L 08/02 2:56 AM [employer] [facility] Not Available Not Available 11/27/2024 12:34:35 08/02/1908/02/2024 Basic metab olic 1999 panel - Serum or Plasm a potassium [moles/volum e] in serum or plasma 4.1 mmol/ L low: 3.4mmo l/Lhig h: 5.1mmo l/L POTAS SIUM 4.1 3.4 - 5.1 mmol/ L 08/02 2:56 AM [employer] [facility] Not Available Not Available 11/27/2024 12:34:35 08/02/19 25 08/02/2024 Basic metab olic 1999 panel - Serum or Plasm a chloride 111 mmol/ L low: 98mmol /Lhigh : 107mmo l/L high CHLOR HOWARD 111 (H) 98 - 107 mmol/ L 08/02 2:56 AM [employer] [facility] Not Available Not Available 11/27/2024 12:34:35 08/02/19 25 08/02/2024 Basic metab olic 1999 panel - Serum or Plasm a carbon dioxide, total [moles/volum e] in serum or plasma 20 mmol/ L low: 22mmol /Lhigh : 29mmol /L low CO2 20 (L) 22 - 29 mmol/ L 08/02 2:56 AM [facility] Not Available Not Available 11/27/2024 12:34:35 08/02/19 25 08/02/2024 Basic metab olic 1999 panel - Serum or Plasm a calcium 9.4 mg/dL low: 8.6mg/ dLhigh : 10.4mg /dL CALCI UM 9.4 8.6 - 10.4 mg/dL 08/02 2:56 AM [facility] Not Available Not Available 11/27/2024 12:34:35 08/02/19 25 08/02/2024 Basic metab olic 1999 panel - Serum or Plasm a BUN 7 mg/dL low: 6mg/dL high: 20mg/d L BUN 7 6 - 20 mg/dL 08/02 2:56 AM [employer] [facility] Not Available Not Available 11/27/2024 12:34:35 08/02/19 25 08/02/2024 Basic metab olic 1999 panel - Serum or Plasm a creatinine [mass/volume ] in serum or plasma 0.5 mg/dL low: 0.51mg /dLhig h: 0.95mg /dL low CREAT ININE 0.50 (L) 0.51 - 0.95 mg/dL 08/02 2:56 AM [employer] [facility] Not Available Not Available 11/27/2024 12:34:35 08/02/19 25 08/02/2024 Basic metab olic 1999 panel - Serum or Plasm a glucose [mass/volume ] in serum or plasma 132 mg/dL low: 74mg/d Lhigh: 99mg/d L high GLUCO SE 132 (H) 74 - 99 mg/dL 08/02 2:56 AM [employer] [facility] Not Available Not Available 11/27/2024 12:34:35 08/02/19 25 08/02/2024 Basic metab olic 2000 panel - Serum or Plasm a glomerular filtration rate [volume rate/area] in serum, plasma or blood by creatinine-b ased formula (CKD-epi 2020)/1.73 sq M text: >=60 mL/min /1.73 sq meter GFR >60 >=60 mL/mi n/1.7 3 sq meter 08/02 2:56 AM [facility] [facility] Not Available Not Available 11/27/2024 12:34:35 08/02/19 25 08/02/2024 Basic metab olic 2000 panel - Serum or Plasm a anion gap 11 mmol/ L low: 8mmol/ Lhigh: 16mmol /L ANION GAP 11 8 - 16 mmol/ L 08/02 2:56 AM [employer] [facility] Not Available Not Available 11/27/2024 12:34:35 08/02/19 25 08/02/2024 Basic metab olic 2000 panel - Serum or Plasm a interpretati on and review of laboratory results Abnorm al Not Available Not Available 12:34:35 08/02/19 25 08/02/2024 CBC W Auto Diffe renti al panel - Blood leukocytes [#/volume] in blood 7.3 K/uL low: 4K/uLh igh: 9.8K/u L WBC 7.3 4.0 - 9.8 K/uL 08/02 2:33 AM [employer] [facility] Not Available Not Available 11/27/2024 12:34:35 08/02/19 25 08/02/2024 CBC W Auto Diffe renti al panel - Blood RBC 2.63 text: 3.90 - 4.90 M/uL low RBC 2.63 (L) 3.90 - 4.90 M/uL 08/02 2:33 AM [facility] [facility] Not Available Not Available 11/27/2024 12:34:35 08/02/19 25 08/02/2024 CBC W Auto Diffe renti al panel - Blood hemoglobin 8.2 g/dL low: 11.8g/ dLhigh : 14.8g/ dL low HEMOG LOBIN 8.2 (L) 11.8 - 14.8 g/dL 08/02 2:33 AM [facility] Not Available Not Available 11/27/2024 12:34:35 08/02/1908/02/2024 CBC W Auto Diffe renti al panel - Blood hematocrit [volume fraction] of blood by automated count 25.3 % low: 35.5%h igh: 44% low HEMAT OCRIT 25.3 (L) 35.5 - 44.0 % 08/02 2:33 AM [facility] Not Available Not Available 11/27/2024 12:34:35 08/02/1908/02/2024 CBC W Auto Diffe renti al panel - Blood MCV 96.2 fL low: 82fLhi gh: 99fL MCV 96.2 82.0 - 99.0 fL 08/02 2:33 AM [facility] Not Available Not Available 11/27/2024 12:34:35 08/02/1908/02/2024 CBC W Auto Diffe renti al panel - Blood MCH 31.2 pg low: 27.2pg high: 32.6pg MCH 31.2 27.2 - 32.6 pg 08/02 2:33 AM [facility] Not Available Not Available 11/27/2024 12:34:35 08/02/19 25 08/02/2024 CBC W Auto Diffe renti al panel - Blood MCHC 32.4 g/dL low: 31.5g/ dLhigh : 35.5g/ dL MCHC 32.4 31.5 - 35.5 g/dL 08/02 2:33 AM [employer] [facility] Not Available Not Available 11/27/2024 12:34:35 08/02/19 25 08/02/2024 CBC W Auto Diffe renti al panel - Blood RDW 13.2 % low: 11.5%h igh: 14.5% RDW 13.2 11.5 - 14.5 % 08/02 2:33 AM [employer] [facility] Not Available Not Available 11/27/2024 12:34:35 08/02/19 25 08/02/2024 CBC W Auto Diffe renti al panel - Blood RDW-stdev 46.7 fL low: 37.1fL high: 48.7fL RDW-S TDEV 46.7 37.1 - 48.7 fL 08/02 2:33 AM [employer] [facility] Not Available Not Available 11/27/2024 12:34:35 08/02/1908/02/2024 CBC W Auto Diffe renti al panel - Blood platelets [#/volume] in blood by automated count 210 K/uL low: 140K/u Lhigh: 350K/u L PLATE LETS 210 140 - 350 K/uL 08/02 2:33 AM [facility] Not Available Not Available 11/27/2024 12:34:35 08/02/19 25 08/02/2024 CBC W Auto Diffe [employer]i al panel - Blood MPV 10.1 fL low: 9.3fLh igh: 12.4fL MPV 10.1 9.3 - 12.4 fL 08/02 2:33 AM [employer] [facility] Not Available Not Available 11/27/2024 12:34:35 08/02/19 25 08/02/2024 CBC W Auto Diffe renti al panel - Blood neutrophils 69 % NEUTR OPHIL S 69 % 08/02 2:33 AM [employer] [facility] Not Available Not Available 11/27/2024 12:34:35 08/02/19 25 08/02/2024 CBC W Auto Diffe renti al panel - Blood lymphocytes/ leukocytes in blood by automated count 16 % LYMPH OCYTE S 16 % 08/02 2:33 AM [employer] [facility] Not Available Not Available 11/27/2024 12:34:35 08/02/19 25 08/02/2024 CBC W Auto Diffe renti al panel - Blood monocytes 9 % MONOC YTES 9 % 08/02 2:33 AM [employer] [facility] Not Available Not Available 11/27/2024 12:34:35 08/02/19 25 08/02/2024 CBC W Auto Diffe renti al panel - Blood eosinophils 5 % EOSIN OPHIL S 5 % 08/02 2:33 AM [employer] [facility] Not Available Not Available 11/27/2024 12:34:35 08/02/19 25 08/02/2024 CBC W Auto Diffe renti al panel - Blood basophils 0 % BASOP HILS 0 % 08/02 2:33 AM [employer] [facility] Not Available Not Available 11/27/2024 12:34:35 08/02/19 25 08/02/2024 CBC W Auto Diffe renti al panel - Blood immature granulocytes 0 % IMMAT URE GRANU LOCYT ES 0 % 08/02 2:33 AM [employer] [facility] Not Available Not Available 11/27/2024 12:34:35 08/02/19 25 08/02/2024 CBC W Auto Diffe renti al panel - Blood neutrophils [#/volume] in blood by automated count 5.04 K/uL low: 1.9K/u Lhigh: 7K/uL NEUTR OPHIL ABSOL [place] 5.04 1.90 - 7.00 K/uL 08/02 2:33 AM [employer] [facility] Not Available Not Available 11/27/2024 12:34:35 08/02/19 25 08/02/2024 CBC W Auto Diffe renti al panel - Blood lymphocyte absolute 1.19 K/uL low: 0.7K/u Lhigh: 4.5K/u L LYMPH OCYTE ABSOL [place] 1.19 0.70 - 4.50 K/uL 08/02 2:33 AM [employer] [facility] Not Available Not Available 11/27/2024 12:34:35 08/02/19 25 08/02/2024 CBC W Auto Diffe renti al panel - Blood monocyte absolute 0.68 K/uL low: 0.1K/u Lhigh: 1.3K/u L MONOC YTE ABSOL [place] 0.68 0.10 - 1.30 K/uL 08/02 2:33 AM 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 [facility] Not Available Not Available 11/27/2024 12:34:35 08/02/19 25 08/02/2024 CBC W Auto Diffe renti al panel - Blood eosinophil absolute 0.36 K/uL low: 0K/uLh igh: 0.7K/u L EOSIN OPHIL ABSOL [place] 0.36 0.00 - 0.70 K/uL 08/02 2:33 AM [employer] [facility] Not Available Not Available 11/27/2024 12:34:35 08/02/19 25 08/02/2024 CBC W Auto Diffe renti al panel - Blood basophils absolute 0.02 K/uL low: 0K/uLh igh: 0.2K/u L BASOP HILS ABSOL [place] 0.02 0.00 - 0.20 K/uL 08/02 2:33 AM [employer] [facility] Not Available Not Available 11/27/2024 12:34:35 08/02/19 25 08/02/2024 CBC W Auto Diffe renti al panel - Blood immature granulocytes absolute 0.01 K/uL low: 0K/uLh igh: 0.03K/ uL IMMAT URE GRANU LOCYT ES ABSOL [place] 0.01 0.00 - 0.03 K/uL 08/02 2:33 AM [employer] [facility] Not Available Not Available 11/27/2024 12:34:35 08/02/19 25 08/02/2024 CBC W Auto Diffe renti al panel - Blood interpretati on and review of laboratory results Abnorm al Not Available Not Available 12:34:35 08/03/19 25 08/03/2024 Basic metab olic 2000 panel - Serum or Plasm a sodium [moles/volum e] in serum or plasma 141 mmol/ L low: 136mmo l/Lhig h: 145mmo l/L CHRIS Gramajo 141 136 - 145 mmol/ L 08/03 7:25 AM [employer] [facility] [email or web address] [facility] Not Available Not Available 11/27/2024 12:34:35 08/03/19 25 08/03/2024 Basic metab olic 1999 panel - Serum or Plasm a potassium [moles/volum e] in serum or plasma 4.6 mmol/ L low: 3.4mmo l/Lhig h: 5.1mmo l/L POTAS SIUM 4.6 3.4 - 5.1 mmol/ L 08/03 7:25 AM [facility] Not Available Not Available 11/27/2024 12:34:35 08/03/19 25 08/03/2024 Basic metab olic 1999 panel - Serum or Plasm a chloride 110 mmol/ L low: 98mmol /Lhigh : 107mmo l/L high CHLOR HOWARD 110 (H) 98 - 107 mmol/ L 08/03 7:25 AM [email or web address] Not Available Not Available 11/27/2024 12:34:35 08/03/19 25 08/03/2024 Basic metab olic 1999 panel - Serum or Plasm a carbon dioxide, total [moles/volum e] in serum or plasma 23 mmol/ L low: 22mmol /Lhigh : 29mmol /L CO2 23 22 - 29 mmol/ L 08/03 7:25 AM [facility] Not Available Not Available 11/27/2024 12:34:35 08/03/19 25 08/03/2024 Basic metab olic 2000 panel - Serum or Plasm a calcium 9.9 mg/dL low: 8.6mg/ dLhigh : 10.4mg /dL CALCI UM 9.9 8.6 - 10.4 mg/dL 08/03 7:25 AM [employer] [facility] [email or web address] [facility] Not Available Not Available 11/27/2024 12:34:35 08/03/19 25 08/03/2024 Basic metab olic 1999 panel - Serum or Plasm a BUN 10 mg/dL low: 6mg/dL high: 20mg/d L BUN 10 6 - 20 mg/dL 08/03 7:25 AM [employer] [facility] Not Available Not Available 11/27/2024 12:34:35 08/03/19 25 08/03/2024 Basic metab olic 1999 panel - Serum or Plasm a creatinine [mass/volume ] in serum or plasma 0.5 mg/dL low: 0.51mg /dLhig h: 0.95mg /dL low CREAT ININE 0.50 (L) 0.51 - 0.95 mg/dL 08/03 7:25 AM [employer] [facility] [email or web address] [facility] Not Available Not Available 11/27/2024 12:34:35 08/03/19 25 08/03/2024 Basic metab olic 1999 panel - Serum or Plasm a glucose [mass/volume ] in serum or plasma 112 mg/dL low: 74mg/d Lhigh: 99mg/d L high GLUCO SE 112 (H) 74 - 99 mg/dL 08/03 7:25 AM [email or web address] Not Available Not Available 11/27/2024 12:34:35 08/03/1908/03/2024 Basic metab olic 1999 panel - Serum or Plasm a glomerular filtration rate [volume rate/area] in serum, plasma or blood by creatinine-b ased formula (CKD-epi 2020)/1.73 sq M text: >=60 mL/min /1.73 sq meter GFR >60 >=60 mL/mi n/1.7 3 sq meter 08/03 7:25 AM [email or web address] [facility] Not Available Not Available 11/27/2024 12:34:35 08/03/19 25 08/03/2024 Basic metab olic 2000 panel - Serum or Plasm a anion gap 8 mmol/ L low: 8mmol/ Lhigh: 16mmol /L ANION GAP 8 8 - 16 mmol/ L 08/03 7:25 AM [employer] [facility] [email or web address] [facility] Not Available Not Available 11/27/2024 12:34:35 08/03/19 25 08/03/2024 Basic metab olic 2000 panel - Serum or Plasm a interpretati on and review of laboratory results Abnorm al Not Available Not Available 12:34:35 08/03/19 25 08/03/2024 CBC W Auto Diffe renti al panel - Blood leukocytes [#/volume] in blood 5.3 K/uL low: 4K/uLh igh: 9.8K/u L WBC 5.3 4.0 - 9.8 K/uL 08/03 7:08 AM [employer] [facility] Not Available Not Available 11/27/2024 12:34:35 08/03/19 25 08/03/2024 CBC W Auto Diffe renti al panel - Blood RBC 2.62 text: 3.90 - 4.90 M/uL low RBC 2.62 (L) 3.90 - 4.90 M/uL 08/03 7:08 AM [employer] [facility] Not Available Not Available 11/27/2024 12:34:35 08/03/19 25 08/03/2024 CBC W Auto Diffe renti al panel - Blood hemoglobin 8.3 g/dL low: 11.8g/ dLhigh : 14.8g/ dL low HEMOG LOBIN 8.3 (L) 11.8 - 14.8 g/dL 08/03 7:08 AM [employer] [facility] Not Available Not Available 11/27/2024 12:34:35 08/03/19 25 08/03/2024 CBC W Auto Diffe renti al panel - Blood hematocrit [volume fraction] of blood by automated count 25.2 % low: 35.5%h igh: 44% low HEMAT OCRIT 25.2 (L) 35.5 - 44.0 % 08/03 7:08 AM [employer] [email or web address] Not Available Not Available 11/27/2024 12:34:35 08/03/19 25 08/03/2024 CBC W Auto Diffe renti al panel - Blood MCV 96.2 fL low: 82fLhi gh: 99fL MCV 96.2 82.0 - 99.0 fL 08/03 7:08 AM [employer] [facility] Not Available Not Available 11/27/2024 12:34:35 08/03/19 25 08/03/2024 CBC W Auto Diffe renti al panel - Blood MCH 31.7 pg low: 27.2pg high: 32.6pg MCH 31.7 27.2 - 32.6 pg 08/03 7:08 AM [employer] [facility] Not Available Not Available 11/27/2024 12:34:35 08/03/19 25 08/03/2024 CBC W Auto Diffe renti al panel - Blood MCHC 32.9 g/dL low: 31.5g/ dLhigh : 35.5g/ dL MCHC 32.9 31.5 - 35.5 g/dL 08/03 7:08 AM [facility] Not Available Not Available 11/27/2024 12:34:35 08/03/19 25 08/03/2024 CBC W Auto Diffe renti al panel - Blood RDW 13.1 % low: 11.5%h igh: 14.5% RDW 13.1 11.5 - 14.5 % 08/03 7:08 AM [facility] Not Available Not Available 11/27/2024 12:34:35 08/03/1908/03/2024 CBC W Auto Diffe renti al panel - Blood RDW-stdev 46.4 fL low: 37.1fL high: 48.7fL RDW-S TDEV 46.4 37.1 - 48.7 fL 08/03 7:08 AM [employer] [facility] Not Available Not Available 11/27/2024 12:34:35 08/03/19 25 08/03/2024 CBC W Auto Diffe renti al panel - Blood platelets [#/volume] in blood by automated count 253 K/uL low: 140K/u Lhigh: 350K/u L PLATE LETS 253 140 - 350 K/uL 08/03 7:08 AM [employer] [facility] Not Available Not Available 11/27/2024 12:34:35 08/03/19 25 08/03/2024 CBC W Auto Diffe renti al panel - Blood MPV 10 fL low: 9.3fLh igh: 12.4fL MPV 10.0 9.3 - 12.4 fL 08/03 7:08 AM 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 [facility] Not Available Not Available 11/27/2024 12:34:35 08/03/19 25 08/03/2024 CBC W Auto Diffe renti al panel - Blood neutrophils 57 % NEUTR OPHIL S 57 % 08/03 7:08 AM [employer] [facility] Not Available Not Available 11/27/2024 12:34:35 08/03/19 25 08/03/2024 CBC W Auto Diffe renti al panel - Blood lymphocytes/ leukocytes in blood by automated count 24 % LYMPH OCYTE S 24 % 08/03 7:08 AM [employer] [facility] Not Available Not Available 11/27/2024 12:34:35 08/03/19 25 08/03/2024 CBC W Auto Diffe renti al panel - Blood monocytes 11 % MONOC YTES 11 % 08/03 7:08 AM [employer] [facility] Not Available Not Available 11/27/2024 12:34:35 08/03/19 25 08/03/2024 CBC W Auto Diffe renti al panel - Blood eosinophils 8 % EOSIN OPHIL S 8 % 08/03 7:08 AM [employer] [facility] Not Available Not Available 11/27/2024 12:34:35 08/03/19 25 08/03/2024 CBC W Auto Diffe renti al panel - Blood basophils 0 % BASOP HILS 0 % 08/03 7:08 AM [employer] [facility] Not Available Not Available 11/27/2024 12:34:35 08/03/19 25 08/03/2024 CBC W Auto Diffe renti al panel - Blood immature granulocytes 0 % IMMAT URE GRANU LOCYT ES 0 % 08/03 7:08 AM [employer] [facility] Not Available Not Available 11/27/2024 12:34:35 08/03/19 25 08/03/2024 CBC W Auto Diffe renti al panel - Blood neutrophils [#/volume] in blood by automated count 3.01 K/uL low: 1.9K/u Lhigh: 7K/uL NEUTR OPHIL ABSOL [place] 3.01 1.90 - 7.00 K/uL 08/03 7:08 AM [employer] [facility] Not Available Not Available 11/27/2024 12:34:35 08/03/19 25 08/03/2024 CBC W Auto Diffe renti al panel - Blood lymphocyte absolute 1.27 K/uL low: 0.7K/u Lhigh: 4.5K/u L LYMPH OCYTE ABSOL [place] 1.27 0.70 - 4.50 K/uL 08/03 7:08 AM [employer] [facility] Not Available Not Available 11/27/2024 12:34:35 08/03/1908/03/2024 CBC W Auto Diffe renti al panel - Blood monocyte absolute 0.58 K/uL low: 0.1K/u Lhigh: 1.3K/u L MONOC YTE ABSOL [place] 0.58 0.10 - 1.30 K/uL 08/03 7:08 AM [employer] [facility] Not Available Not Available 11/27/2024 12:34:35 08/03/19 25 08/03/2024 CBC W Auto Diffe renti al panel - Blood eosinophil absolute 0.43 K/uL low: 0K/uLh igh: 0.7K/u L EOSIN OPHIL ABSOL [place] 0.43 0.00 - 0.70 K/uL 08/03 7:08 AM [employer] [facility] Not Available Not Available 11/27/2024 12:34:35 08/03/19 25 08/03/2024 CBC W Auto Diffe renti al panel - Blood basophils absolute 0.02 K/uL low: 0K/uLh igh: 0.2K/u L BASOP HILS ABSOL [place] 0.02 0.00 - 0.20 K/uL 08/03 7:08 AM 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 [facility] Not Available Not Available 11/27/2024 12:34:35 08/03/1908/03/2024 CBC W Auto Diffe renti al panel - Blood immature granulocytes absolute 0.01 K/uL low: 0K/uLh igh: 0.03K/ uL IMMAT URE GRANU LOCYT ES ABSOL [place] 0.01 0.00 - 0.03 K/uL 08/03 7:08 AM 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 [facility] Not Available Not Available 11/27/2024 12:34:35 08/03/19 25 08/03/2024 CBC W Auto Diffe renti al panel - Blood interpretati on and review of laboratory results Abnorm al Not Available Not Available 12:34:35 08/04/19 25 08/04/2024 Basic metab olic 1999 panel - Serum or Plasm a sodium [moles/volum e] in serum or plasma 142 mmol/ L low: 136mmo l/Lhig h: 145mmo l/L SODIU M 142 136 - 145 mmol/ L 08/04 3:31 AM [employer] [facility] Not Available Not Available 11/27/2024 12:34:35 08/04/19 25 08/04/2024 Basic metab olic 1999 panel - Serum or Plasm a potassium [moles/volum e] in serum or plasma 3.8 mmol/ L low: 3.4mmo l/Lhig h: 5.1mmo l/L POTAS SIUM 3.8 3.4 - 5.1 mmol/ L 08/04 3:31 AM [employer] [facility] Not Available Not Available 11/27/2024 12:34:35 08/04/19 25 08/04/2024 Basic metab olic 1999 panel - Serum or Plasm a chloride 109 mmol/ L low: 98mmol /Lhigh : 107mmo l/L high CHLOR HOWARD 109 (H) 98 - 107 mmol/ L 08/04 3:31 AM [facility] Not Available Not Available 11/27/2024 12:34:35 08/04/19 25 08/04/2024 Basic metab olic 1999 panel - Serum or Plasm a carbon dioxide, total [moles/volum e] in serum or plasma 21 mmol/ L low: 22mmol /Lhigh : 29mmol /L low CO2 21 (L) 22 - 29 mmol/ L 08/04 3:31 AM [facility] Not Available Not Available 11/27/2024 12:34:35 08/04/19 25 08/04/2024 Basic metab olic 1999 panel - Serum or Plasm a calcium 9.8 mg/dL low: 8.6mg/ dLhigh : 10.4mg /dL CALCI UM 9.8 8.6 - 10.4 mg/dL 08/04 3:31 AM [employer] [facility] Not Available Not Available 11/27/2024 12:34:35 08/04/19 25 08/04/2024 Basic metab olic 1999 panel - Serum or Plasm a BUN 12 mg/dL low: 6mg/dL high: 20mg/d L BUN 12 6 - 20 mg/dL 08/04 3:31 AM [facility] Not Available Not Available 11/27/2024 12:34:35 08/04/19 25 08/04/2024 Basic metab olic 1999 panel - Serum or Plasm a creatinine [mass/volume ] in serum or plasma 0.56 mg/dL low: 0.51mg /dLhig h: 0.95mg /dL CREAT ININE 0.56 0.51 - 0.95 mg/dL 08/04 3:31 AM [email or web address] Not Available Not Available 11/27/2024 12:34:35 08/04/19 25 08/04/2024 Basic metab olic 1999 panel - Serum or Plasm a glucose [mass/volume ] in serum or plasma 104 mg/dL low: 74mg/d Lhigh: 99mg/d L high GLUCO SE 104 (H) 74 - 99 mg/dL 08/04 3:31 AM [employer] [email or web address] Not Available Not Available 11/27/2024 12:34:35 08/04/19 25 08/04/2024 Basic metab olic 2000 panel - Serum or Plasm a glomerular filtration rate [volume rate/area] in serum, plasma or blood by creatinine-b ased formula (CKD-epi 2020)/1.73 sq M text: >=60 mL/min /1.73 sq meter GFR >60 >=60 mL/mi n/1.7 3 sq meter 08/04 3:31 AM [email or web address] Not Available Not Available 11/27/2024 12:34:35 08/04/19 25 08/04/2024 Basic metab olic 2000 panel - Serum or Plasm a anion gap 12 mmol/ L low: 8mmol/ Lhigh: 16mmol /L ANION GAP 12 8 - 16 mmol/ L 08/04 3:31 AM [email or web address] Not Available Not Available 11/27/2024 12:34:35 08/04/19 25 08/04/2024 Basic metab olic 2000 panel - Serum or Plasm a interpretati on and review of laboratory results Abnorm al Not Available Not Available 12:34:35 08/04/19 25 08/04/2024 CBC W Auto Diffe renti al panel - Blood leukocytes [#/volume] in blood 5.1 K/uL low: 4K/uLh igh: 9.8K/u L WBC 5.1 4.0 - 9.8 K/uL 08/04 3:00 AM [facility] [email or web address] Not Available Not Available 11/27/2024 12:34:35 08/04/19 25 08/04/2024 CBC W Auto Diffe renti al panel - Blood RBC 2.56 text: 3.90 - 4.90 M/uL low RBC 2.56 (L) 3.90 - 4.90 M/uL 08/04 3:00 AM [employer]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[employer] [facility] Not Available Not Available 11/27/2024 12:34:35 08/04/19 25 08/04/2024 CBC W Auto Diffe renti al panel - Blood hemoglobin 7.9 g/dL low: 11.8g/ dLhigh : 14.8g/ dL low HEMOG LOBIN 7.9 (L) 11.8 - 14.8 g/dL 08/04 3:00 AM [employer]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[employer] [facility] Not Available Not Available 11/27/2024 12:34:35 08/04/19 25 08/04/2024 CBC W Auto Diffe renti al panel - Blood hematocrit [volume fraction] of blood by automated count 24.7 % low: 35.5%h igh: 44% low HEMAT OCRIT 24.7 (L) 35.5 - 44.0 % 08/04 3:00 AM [employer]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[employer] [facility] Not Available Not Available 11/27/2024 12:34:35 08/04/19 25 08/04/2024 CBC W Auto Diffe renti al panel - Blood MCV 96.5 fL low: 82fLhi gh: 99fL MCV 96.5 82.0 - 99.0 fL 08/04 3:00 AM [employer]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[employer] [facility] Not Available Not Available 11/27/2024 12:34:35 08/04/19 25 08/04/2024 CBC W Auto Diffe renti al panel - Blood MCH 30.9 pg low: 27.2pg high: 32.6pg MCH 30.9 27.2 - 32.6 pg 08/04 3:00 AM [employer] [facility] Not Available Not Available 11/27/2024 12:34:35 08/04/19 25 08/04/2024 CBC W Auto Diffe renti al panel - Blood MCHC 32 g/dL low: 31.5g/ dLhigh : 35.5g/ dL MCHC 32.0 31.5 - 35.5 g/dL 08/04 3:00 AM [employer] [facility] Not Available Not Available 11/27/2024 12:34:35 08/04/19 25 08/04/2024 CBC W Auto Diffe renti al panel - Blood RDW 13.1 % low: 11.5%h igh: 14.5% RDW 13.1 11.5 - 14.5 % 08/04 3:00 AM [employer] [facility] Not Available Not Available 11/27/2024 12:34:35 08/04/19 25 08/04/2024 CBC W Auto Diffe renti al panel - Blood RDW-stdev 46.8 fL low: 37.1fL high: 48.7fL RDW-S TDEV 46.8 37.1 - 48.7 fL 08/04 3:00 AM [employer] [facility] Not Available Not Available 11/27/2024 12:34:35 08/04/19 25 08/04/2024 CBC W Auto Diffe renti al panel - Blood platelets [#/volume] in blood by automated count 276 K/uL low: 140K/u Lhigh: 350K/u L PLATE LETS 276 140 - 350 K/uL 08/04 3:00 AM [employer] [facility] Not Available Not Available 11/27/2024 12:34:35 08/04/19 25 08/04/2024 CBC W Auto Diffe renti al panel - Blood MPV 9.6 fL low: 9.3fLh igh: 12.4fL MPV 9.6 9.3 - 12.4 fL 08/04 3:00 AM [employer] [facility] Not Available Not Available 11/27/2024 12:34:35 08/04/19 25 08/04/2024 CBC W Auto Diffe renti al panel - Blood neutrophils 52 % NEUTR OPHIL S 52 % 08/04 3:00 AM [employer] [facility] Not Available Not Available 11/27/2024 12:34:35 08/04/19 25 08/04/2024 CBC W Auto Diffe renti al panel - Blood lymphocytes/ leukocytes in blood by automated count 28 % LYMPH OCYTE S 28 % 08/04 3:00 AM [facility] Not Available Not Available 11/27/2024 12:34:35 08/04/19 25 08/04/2024 CBC W Auto Diffe renti al panel - Blood monocytes 11 % MONOC YTES 11 % 08/04 3:00 AM [facility] Not Available Not Available 11/27/2024 12:34:35 08/04/19 25 08/04/2024 CBC W Auto Diffe renti al panel - Blood eosinophils 8 % EOSIN OPHIL S 8 % 08/04 3:00 AM [employer]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[employer] [facility] Not Available Not Available 11/27/2024 12:34:35 08/04/19 25 08/04/2024 CBC W Auto Diffe renti al panel - Blood basophils 0 % BASOP HILS 0 % 08/04 3:00 AM [facility] [email or web address] [facility] Not Available Not Available 11/27/2024 12:34:35 08/04/19 25 08/04/2024 CBC W Auto Diffe renti al panel - Blood immature granulocytes 0 % IMMAT URE GRANU LOCYT ES 0 % 08/04 3:00 AM [employer]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[employer] [facility] Not Available Not Available 11/27/2024 12:34:35 08/04/19 25 08/04/2024 CBC W Auto Diffe renti al panel - Blood neutrophils [#/volume] in blood by automated count 2.66 K/uL low: 1.9K/u Lhigh: 7K/uL NEUTR OPHIL ABSOL [place] 2.66 1.90 - 7.00 K/uL 08/04 3:00 AM [facility] Not Available Not Available 11/27/2024 12:34:35 08/04/19 25 08/04/2024 CBC W Auto Diffe renti al panel - Blood lymphocyte absolute 1.41 K/uL low: 0.7K/u Lhigh: 4.5K/u L LYMPH OCYTE ABSOL [place] 1.41 0.70 - 4.50 K/uL 08/04 3:00 AM [facility] Not Available Not Available 11/27/2024 12:34:35 08/04/19 25 08/04/2024 CBC W Auto Diffe renti al panel - Blood monocyte absolute 0.57 K/uL low: 0.1K/u Lhigh: 1.3K/u L MONOC YTE ABSOL [place] 0.57 0.10 - 1.30 K/uL 08/04 3:00 AM [facility] Not Available Not Available 11/27/2024 12:34:35 08/04/1908/04/2024 CBC W Auto Diffe renti al panel - Blood eosinophil absolute 0.41 K/uL low: 0K/uLh igh: 0.7K/u L EOSIN OPHIL ABSOL [place] 0.41 0.00 - 0.70 K/uL 08/04 3:00 AM [facility] [employer] [facility] Not Available Not Available 11/27/2024 12:34:35 08/04/19 25 08/04/2024 CBC W Auto Diffe renti al panel - Blood basophils absolute 0.02 K/uL low: 0K/uLh igh: 0.2K/u L BASOP HILS ABSOL [place] 0.02 0.00 - 0.20 K/uL 08/04 3:00 AM [employer]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[employer] [facility] Not Available Not Available 11/27/2024 12:34:35 08/04/1908/04/2024 CBC W Auto Diffe renti al panel - Blood immature granulocytes absolute 0.01 K/uL low: 0K/uLh igh: 0.03K/ uL IMMAT URE GRANU LOCYT ES ABSOL [place] 0.01 0.00 - 0.03 K/uL 08/04 3:00 AM [facility] Not Available Not Available 11/27/2024 12:34:35 08/04/19 25 08/04/2024 CBC W Auto Diffe renti al panel - Blood interpretati on and review of laboratory results Abnorm al Not Available Not Available 12:34:35 08/05/19 25 08/05/2024 Basic metab olic 1999 panel - Serum or Plasm a sodium [moles/volum e] in serum or plasma 139 mmol/ L low: 136mmo l/Lhig h: 145mmo l/L SODIU M 139 136 - 145 mmol/ L 08/05 2:55 AM [employer] [email or web address] Not Available Not Available 11/27/2024 12:34:35 08/05/19 25 08/05/2024 Basic metab olic 1999 panel - Serum or Plasm a potassium [moles/volum e] in serum or plasma 3.9 mmol/ L low: 3.4mmo l/Lhig h: 5.1mmo l/L POTAS SIUM 3.9 3.4 - 5.1 mmol/ L 08/05 2:55 AM [email or web address] Not Available Not Available 11/27/2024 12:34:35 08/05/19 25 08/05/2024 Basic metab olic 1999 panel - Serum or Plasm a chloride 108 mmol/ L low: 98mmol /Lhigh : 107mmo l/L high CHLOR HOWARD 108 (H) 98 - 107 mmol/ L 08/05 2:55 AM [employer] [email or web address] Not Available Not Available 11/27/2024 12:34:35 08/05/19 25 08/05/2024 Basic metab olic 1999 panel - Serum or Plasm a carbon dioxide, total [moles/volum e] in serum or plasma 23 mmol/ L low: 22mmol /Lhigh : 29mmol /L CO2 23 22 - 29 mmol/ L 08/05 2:55 AM [employer] [email or web address] Not Available Not Available 11/27/2024 12:34:35 08/05/19 25 08/05/2024 Basic metab olic 1999 panel - Serum or Plasm a calcium 9.5 mg/dL low: 8.6mg/ dLhigh : 10.4mg /dL CALCI UM 9.5 8.6 - 10.4 mg/dL 08/05 2:55 AM [employer] [facility] Not Available Not Available 11/27/2024 12:34:35 08/05/19 25 08/05/2024 Basic metab olic 1999 panel - Serum or Plasm a BUN 13 mg/dL low: 6mg/dL high: 20mg/d L BUN 13 6 - 20 mg/dL 08/05 2:55 AM [employer] [facility] Not Available Not Available 11/27/2024 12:34:35 08/05/19 25 08/05/2024 Basic metab olic 1999 panel - Serum or Plasm a creatinine [mass/volume ] in serum or plasma 0.54 mg/dL low: 0.51mg /dLhig h: 0.95mg /dL CREAT ININE 0.54 0.51 - 0.95 mg/dL 08/05 2:55 AM [employer] [facility] Not Available Not Available 11/27/2024 12:34:35 08/05/19 25 08/05/2024 Basic metab olic 1999 panel - Serum or Plasm a glucose [mass/volume ] in serum or plasma 99 mg/dL low: 74mg/d Lhigh: 99mg/d L GLUCO SE 99 74 - 99 mg/dL 08/05 2:55 AM [employer] [facility] Not Available Not Available 11/27/2024 12:34:35 08/05/19 25 08/05/2024 Basic metab olic 1999 panel - Serum or Plasm a glomerular filtration rate [volume rate/area] in serum, plasma or blood by creatinine-b ased formula (CKD-epi 2020)/1.73 sq M text: >=60 mL/min /1.73 sq meter GFR >60 >=60 mL/mi n/1.7 3 sq meter 08/05 2:55 AM [employer] [facility] Not Available Not Available 11/27/2024 12:34:35 08/05/19 25 08/05/2024 Basic metab olic 2000 panel - Serum or Plasm a anion gap 8 mmol/ L low: 8mmol/ Lhigh: 16mmol /L ANION GAP 8 8 - 16 mmol/ L 08/05 2:55 AM [facility] Not Available Not Available 11/27/2024 12:34:35 08/05/19 25 08/05/2024 Basic metab olic 2000 panel - Serum or Plasm a interpretati on and review of laboratory results Abnorm al Not Available Not Available 12:34:35 08/05/19 25 08/05/2024 CBC W Auto Diffe renti al panel - Blood leukocytes [#/volume] in blood 5.6 K/uL low: 4K/uLh igh: 9.8K/u L WBC 5.6 4.0 - 9.8 K/uL 08/05 2:44 AM [facility] Not Available Not Available 11/27/2024 12:34:35 08/05/19 25 08/05/2024 CBC W Auto Diffe renti al panel - Blood RBC 2.5 text: 3.90 - 4.90 M/uL low RBC 2.50 (L) 3.90 - 4.90 M/uL 08/05 2:44 AM [employer] [facility] Not Available Not Available 11/27/2024 12:34:35 08/05/19 25 08/05/2024 CBC W Auto Diffe laketi al panel - Blood hemoglobin 7.6 g/dL low: 11.8g/ dLhigh : 14.8g/ dL low HEMOG LOBIN 7.6 (L) 11.8 - 14.8 g/dL 08/05 2:44 AM [facility] Not Available Not Available 11/27/2024 12:34:35 08/05/19 25 08/05/2024 CBC W Auto Diffe renti al panel - Blood hematocrit [volume fraction] of blood by automated count 23.8 % low: 35.5%h igh: 44% low HEMAT OCRIT 23.8 (L) 35.5 - 44.0 % 08/05 2:44 AM [facility] Not Available Not Available 11/27/2024 12:34:35 08/05/19 25 08/05/2024 CBC W Auto Diffe renti al panel - Blood MCV 95.2 fL low: 82fLhi gh: 99fL MCV 95.2 82.0 - 99.0 fL 08/05 2:44 AM [facility] Not Available Not Available 11/27/2024 12:34:35 08/05/19 25 08/05/2024 CBC W Auto Diffe renti al panel - Blood MCH 30.4 pg low: 27.2pg high: 32.6pg MCH 30.4 27.2 - 32.6 pg 08/05 2:44 AM [employer] [facility] Not Available Not Available 11/27/2024 12:34:35 08/05/19 25 08/05/2024 CBC W Auto Diffe renti al panel - Blood MCHC 31.9 g/dL low: 31.5g/ dLhigh : 35.5g/ dL MCHC 31.9 31.5 - 35.5 g/dL 08/05 2:44 AM [employer] [facility] Not Available Not Available 11/27/2024 12:34:35 08/05/19 25 08/05/2024 CBC W Auto Diffe renti al panel - Blood RDW 13.1 % low: 11.5%h igh: 14.5% RDW 13.1 11.5 - 14.5 % 08/05 2:44 AM [employer] [facility] Not Available Not Available 11/27/2024 12:34:35 08/05/19 25 08/05/2024 CBC W Auto Diffe renti al panel - Blood RDW-stdev 45.2 fL low: 37.1fL high: 48.7fL RDW-S TDEV 45.2 37.1 - 48.7 fL 08/05 2:44 AM [employer] [facility] Not Available Not Available 11/27/2024 12:34:35 08/05/19 25 08/05/2024 CBC W Auto Diffe renti al panel - Blood platelets [#/volume] in blood by automated count 339 K/uL low: 140K/u Lhigh: 350K/u L PLATE LETS 339 140 - 350 K/uL 08/05 2:44 AM [employer] [facility] Not Available Not Available 11/27/2024 12:34:35 08/05/19 25 08/05/2024 CBC W Auto Diffe renti al panel - Blood MPV 9.6 fL low: 9.3fLh igh: 12.4fL MPV 9.6 9.3 - 12.4 fL 08/05 2:44 AM [employer] [facility] Not Available Not Available 11/27/2024 12:34:35 08/05/19 25 08/05/2024 CBC W Auto Diffe renti al panel - Blood neutrophils 50 % NEUTR OPHIL S 50 % 08/05 2:44 AM [employer] [facility] Not Available Not Available 11/27/2024 12:34:35 08/05/19 25 08/05/2024 CBC W Auto Diffe renti al panel - Blood lymphocytes/ leukocytes in blood by automated count 30 % LYMPH OCYTE S 30 % 08/05 2:44 AM [employer] [facility] Not Available Not Available 11/27/2024 12:34:35 08/05/19 25 08/05/2024 CBC W Auto Diffe renti al panel - Blood monocytes 13 % MONOC YTES 13 % 08/05 2:44 AM [employer] [facility] Not Available Not Available 11/27/2024 12:34:35 08/05/19 25 08/05/2024 CBC W Auto Diffe renti al panel - Blood eosinophils 6 % EOSIN OPHIL S 6 % 08/05 2:44 AM [employer] [facility] Not Available Not Available 11/27/2024 12:34:35 08/05/19 25 08/05/2024 CBC W Auto Diffe renti al panel - Blood basophils 0 % BASOP HILS 0 % 08/05 2:44 AM [employer] [facility] Not Available Not Available 11/27/2024 12:34:35 08/05/19 25 08/05/2024 CBC W Auto Diffe renti al panel - Blood immature granulocytes 0 % IMMAT URE GRANU LOCYT ES 0 % 08/05 2:44 AM [employer] [facility] Not Available Not Available 11/27/2024 12:34:35 08/05/19 25 08/05/2024 CBC W Auto Diffe renti al panel - Blood neutrophils [#/volume] in blood by automated count 2.76 K/uL low: 1.9K/u Lhigh: 7K/uL NEUTR OPHIL ABSOL [place] 2.76 1.90 - 7.00 K/uL 08/05 2:44 AM [employer] [facility] Not Available Not Available 11/27/2024 12:34:35 08/05/19 25 08/05/2024 CBC W Auto Diffe renti al panel - Blood lymphocyte absolute 1.68 K/uL low: 0.7K/u Lhigh: 4.5K/u L LYMPH OCYTE ABSOL [place] 1.68 0.70 - 4.50 K/uL 08/05 2:44 [facility] Not Available 11/27/2024 12:34:35 08/05/19 25 08/05/2024 CBC W Auto Diffe renti al panel - Blood monocyte absolute 0.73 K/uL low: 0.1K/u Lhigh: 1.3K/u L MONOC YTE ABSOL [place] 0.73 0.10 - 1.30 K/uL 08/05 2:44 AM [employer] [facility] Not Available Not Available 11/27/2024 12:34:35 08/05/19 25 08/05/2024 CBC W Auto Diffe renti al panel - Blood eosinophil absolute 0.35 K/uL low: 0K/uLh igh: 0.7K/u L EOSIN OPHIL ABSOL [place] 0.35 0.00 - 0.70 K/uL 08/05 2:44 AM [employer] [facility] Not Available Not Available 11/27/2024 12:34:35 08/05/19 25 08/05/2024 CBC W Auto Diffe renti al panel - Blood basophils absolute 0.02 K/uL low: 0K/uLh igh: 0.2K/u L BASOP HILS ABSOL [place] 0.02 0.00 - 0.20 K/uL 08/05 2:44 AM 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 [facility] Not Available Not Available 11/27/2024 12:34:35 08/05/19 25 08/05/2024 CBC W Auto Diffe renti al panel - Blood immature granulocytes absolute 0.01 K/uL low: 0K/uLh igh: 0.03K/ uL IMMAT URE GRANU LOCYT ES ABSOL [place] 0.01 0.00 - 0.03 K/uL 08/05 2:44 AM [employer] [facility] Not Available Not Available 11/27/2024 12:34:35 08/05/19 25 08/05/2024 CBC W Auto Diffe renti al panel - Blood interpretati on and review of laboratory results Abnorm al Not Available Not Available 12:34:35 08/06/19 25 08/06/2024 Basic metab olic 1999 panel - Serum or Plasm a sodium [moles/volum e] in serum or plasma 143 mmol/ L low: 136mmo l/Lhig h: 145mmo l/L SODIU M 143 136 - 145 mmol/ L 08/06 7:04 AM [employer] [facility] Not Available Not Available 11/27/2024 12:34:36 08/06/19 25 08/06/2024 Basic metab olic 1999 panel - Serum or Plasm a potassium [moles/volum e] in serum or plasma 4.6 mmol/ L low: 3.4mmo l/Lhig h: 5.1mmo l/L POTAS SIUM 4.6 3.4 - 5.1 mmol/ L 08/06 7:04 AM [employer] [facility] Not Available Not Available 11/27/2024 12:34:36 08/06/19 25 08/06/2024 Basic metab olic 1999 panel - Serum or Plasm a chloride 112 mmol/ L low: 98mmol /Lhigh : 107mmo l/L high CHLOR HOWARD 112 (H) 98 - 107 mmol/ L 08/06 7:04 AM [facility] Not Available Not Available 11/27/2024 12:34:36 08/06/19 25 08/06/2024 Basic metab olic 1999 panel - Serum or Plasm a carbon dioxide, total [moles/volum e] in serum or plasma 22 mmol/ L low: 22mmol /Lhigh : 29mmol /L CO2 22 22 - 29 mmol/ L 08/06 7:04 AM [facility] Not Available Not Available 11/27/2024 12:34:36 08/06/19 25 08/06/2024 Basic metab olic 1999 panel - Serum or Plasm a calcium 9.8 mg/dL low: 8.6mg/ dLhigh : 10.4mg /dL CALCI UM 9.8 8.6 - 10.4 mg/dL 08/06 7:04 AM [facility] Not Available Not Available 11/27/2024 12:34:36 08/06/19 25 08/06/2024 Basic metab olic 1999 panel - Serum or Plasm a BUN 11 mg/dL low: 6mg/dL high: 20mg/d L BUN 11 6 - 20 mg/dL 08/06 7:04 AM [facility] Not Available Not Available 11/27/2024 12:34:36 08/06/19 25 08/06/2024 Basic metab olic 1999 panel - Serum or Plasm a creatinine [mass/volume ] in serum or plasma 0.58 mg/dL low: 0.51mg /dLhig h: 0.95mg /dL CREAT ININE 0.58 0.51 - 0.95 mg/dL 08/06 7:04 AM [facility] Not Available Not Available 11/27/2024 12:34:36 08/06/19 25 08/06/2024 Basic metab olic 1999 panel - Serum or Plasm a glucose [mass/volume ] in serum or plasma 96 mg/dL low: 74mg/d Lhigh: 99mg/d L GLUCO SE 96 74 - 99 mg/dL 08/06 7:04 AM [employer] [facility] Not Available Not Available 11/27/2024 12:34:36 08/06/19 25 08/06/2024 Basic metab olic 2000 panel - Serum or Plasm a glomerular filtration rate [volume rate/area] in serum, plasma or blood by creatinine-b ased formula (CKD-epi 2020)/1.73 sq M text: >=60 mL/min /1.73 sq meter GFR >60 >=60 mL/mi n/1.7 3 sq meter 08/06 7:04 AM [employer] [facility] Not Available Not Available 11/27/2024 12:34:36 08/06/19 25 08/06/2024 Basic metab olic 1999 panel - Serum or Plasm a anion gap 9 mmol/ L low: 8mmol/ Lhigh: 16mmol /L ANION GAP 9 8 - 16 mmol/ L 08/06 7:04 AM [employer] [facility] Not Available Not Available 11/27/2024 12:34:36 08/06/19 25 08/06/2024 Basic metab olic 2000 panel - Serum or Plasm a interpretati on and review of laboratory results Abnorm al Not Available Not Available 12:34:36 08/06/19 25 08/06/2024 CBC W Auto Diffe renti al panel - Blood leukocytes [#/volume] in blood 5.5 K/uL low: 4K/uLh igh: 9.8K/u L WBC 5.5 4.0 - 9.8 K/uL 08/06 6:37 AM [employer] [facility] Not Available Not Available 11/27/2024 12:34:35 08/06/19 25 08/06/2024 CBC W Auto Diffe renti al panel - Blood RBC 2.68 text: 3.90 - 4.90 M/uL low RBC 2.68 (L) 3.90 - 4.90 M/uL 08/06 6:37 AM [employer] [facility] Not Available Not Available 11/27/2024 12:34:35 08/06/19 25 08/06/2024 CBC W Auto Diffe renti al panel - Blood hemoglobin 8.3 g/dL low: 11.8g/ dLhigh : 14.8g/ dL low HEMOG LOBIN 8.3 (L) 11.8 - 14.8 g/dL 08/06 6:37 AM [employer] [facility] Not Available Not Available 11/27/2024 12:34:35 08/06/19 25 08/06/2024 CBC W Auto Diffe renti al panel - Blood hematocrit [volume fraction] of blood by automated count 26.1 % low: 35.5%h igh: 44% low HEMAT OCRIT 26.1 (L) 35.5 - 44.0 % 08/06 6:37 AM [employer] [facility] Not Available Not Available 11/27/2024 12:34:35 08/06/1908/06/2024 CBC W Auto Diffe renti al panel - Blood MCV 97.4 fL low: 82fLhi gh: 99fL MCV 97.4 82.0 - 99.0 fL 08/06 6:37 AM [employer] [facility] Not Available Not Available 11/27/2024 12:34:35 08/06/19 25 08/06/2024 CBC W Auto Diffe renti al panel - Blood MCH 31 pg low: 27.2pg high: 32.6pg MCH 31.0 27.2 - 32.6 pg 08/06 6:37 AM [employer] [facility] Not Available Not Available 11/27/2024 12:34:35 08/06/19 25 08/06/2024 CBC W Auto Diffe renti al panel - Blood MCHC 31.8 g/dL low: 31.5g/ dLhigh : 35.5g/ dL MCHC 31.8 31.5 - 35.5 g/dL 08/06 6:37 AM [employer] [facility] Not Available Not Available 11/27/2024 12:34:35 08/06/19 25 08/06/2024 CBC W Auto Diffe renti al panel - Blood RDW 13.5 % low: 11.5%h igh: 14.5% RDW 13.5 11.5 - 14.5 % 08/06 6:37 AM [employer] [facility] Not Available Not Available 11/27/2024 12:34:35 08/06/19 25 08/06/2024 CBC W Auto Diffe renti al panel - Blood RDW-stdev 47.7 fL low: 37.1fL high: 48.7fL RDW-S TDEV 47.7 37.1 - 48.7 fL 08/06 6:37 AM [employer] [facility] Not Available Not Available 11/27/2024 12:34:35 08/06/19 25 08/06/2024 CBC W Auto Diffe renti al panel - Blood platelets [#/volume] in blood by automated count 382 K/uL low: 140K/u Lhigh: 350K/u L high PLATE LETS 382 (H) 140 - 350 K/uL 08/06 6:37 AM [facility] Not Available Not Available 11/27/2024 12:34:35 08/06/19 25 08/06/2024 CBC W Auto Diffe renti al panel - Blood MPV 9.3 fL low: 9.3fLh igh: 12.4fL MPV 9.3 9.3 - 12.4 fL 08/06 6:37 AM [employer] [facility] Not Available Not Available 11/27/2024 12:34:35 08/06/19 25 08/06/2024 CBC W Auto Diffe renti al panel - Blood neutrophils 53 % NEUTR OPHIL S 53 % 08/06 6:37 AM [employer] [facility] Not Available Not Available 11/27/2024 12:34:35 08/06/19 25 08/06/2024 CBC W Auto Diffe renti al panel - Blood lymphocytes/ leukocytes in blood by automated count 27 % LYMPH OCYTE S 27 % 08/06 6:37 AM 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 [facility] Not Available Not Available 11/27/2024 12:34:35 08/06/19 25 08/06/2024 CBC W Auto Diffe renti al panel - Blood monocytes 12 % MONOC YTES 12 % 08/06 6:37 AM 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[facility] Not Available Not Available 11/27/2024 12:34:35 08/06/19 25 08/06/2024 CBC W Auto Diffe renti al panel - Blood eosinophils 7 % EOSIN OPHIL S 7 % 08/06 6:37 AM [facility] Not Available Not Available 11/27/2024 12:34:35 08/06/19 25 08/06/2024 CBC W Auto Diffe renti al panel - Blood basophils 0 % BASOP HILS 0 % 08/06 6:37 AM [facility] Not Available Not Available 11/27/2024 12:34:35 08/06/19 25 08/06/2024 CBC W Auto Diffe renti al panel - Blood immature granulocytes 0 % IMMAT URE GRANU LOCYT ES 0 % 08/06 6:37 AM [facility] Not Available Not Available 11/27/2024 12:34:35 08/06/19 25 08/06/2024 CBC W Auto Diffe renti al panel - Blood neutrophils [#/volume] in blood by automated count 2.92 K/uL low: 1.9K/u Lhigh: 7K/uL NEUTR OPHIL ABSOL [place] 2.92 1.90 - 7.00 K/uL 08/06 6:37 AM [facility] Not Available Not Available 11/27/2024 12:34:35 08/06/19 25 08/06/2024 CBC W Auto Diffe renti al panel - Blood lymphocyte absolute 1.49 K/uL low: 0.7K/u Lhigh: 4.5K/u L LYMPH OCYTE ABSOL [place] 1.49 0.70 - 4.50 K/uL 08/06 6:37 AM [employer] [facility] Not Available Not Available 11/27/2024 12:34:35 08/06/19 25 08/06/2024 CBC W Auto Diffe renti al panel - Blood monocyte absolute 0.63 K/uL low: 0.1K/u Lhigh: 1.3K/u L MONOC YTE ABSOL [place] 0.63 0.10 - 1.30 K/uL 08/06 6:37 AM [employer] [facility] Not Available Not Available 11/27/2024 12:34:35 08/06/19 25 08/06/2024 CBC W Auto Diffe renti al panel - Blood eosinophil absolute 0.4 K/uL low: 0K/uLh igh: 0.7K/u L EOSIN OPHIL ABSOL [place] 0.40 0.00 - 0.70 K/uL 08/06 6:37 AM [employer] [facility] Not Available Not Available 11/27/2024 12:34:35 08/06/19 25 08/06/2024 CBC W Auto Diffe renti al panel - Blood basophils absolute 0.02 K/uL low: 0K/uLh igh: 0.2K/u L BASOP HILS ABSOL [place] 0.02 0.00 - 0.20 K/uL 08/06 6:37 AM [employer] [facility] Not Available Not Available 11/27/2024 12:34:35 08/06/19 25 08/06/2024 CBC W Auto Diffe renti al panel - Blood immature granulocytes absolute 0.01 K/uL low: 0K/uLh igh: 0.03K/ uL IMMAT URE GRANU LOCYT ES ABSOL [place] 0.01 0.00 - 0.03 K/uL 08/06 6:37 AM [employer] [facility] Not Available Not Available 11/27/2024 12:34:35 08/06/19 25 08/06/2024 CBC W Auto Diffe renti al panel - Blood interpretati on and review of laboratory results Abnorm al Not Available Not Available 12:34:35 12/21/19 25 12/21/2024 LIPID PANEL W/ CHOL/ HDL RATIO cholesterol, total 233 mg/dL 100-19 9 above high normal Not Available [facility] ([facility]) [address] [facility], [place], [address], 12/21/2024 13:08:04 12/21/19 25 12/21/2024 LIPID PANEL W/ CHOL/ HDL RATIO triglyceride s 95 mg/dL 0-149 Not Available [facility] ([facility]) [address] [place], [address], 12/21/2024 13:08:04 12/21/19 25 12/21/2024 LIPID PANEL W/ CHOL/ HDL RATIO HDL cholesterol 60 mg/dL >39 Not Available [facility] ([facility]) [address] [place], [address], 12/21/2024 13:08:04 12/21/19 25 12/21/2024 LIPID PANEL W/ CHOL/ HDL RATIO VLDL cholesterol sandhya 17 mg/dL 5-40 Not Available [facility] ([facility]) [address] [place], [address], 12/21/2024 13:08:04 12/21/19 25 12/21/2024 LIPID PANEL W/ CHOL/ HDL RATIO LDL chol calc ([facility]) 156 mg/dL 0-99 above high normal Not Available [facility] ([facility]) [address] [place], [address], 12/21/2024 13:08:04 12/21/19 25 12/21/2024 LIPID PANEL W/ CHOL/ HDL RATIO T. chol/HDL ratio 3.9 ratio 0.0-4. 4 T. Chol/ HDL Ratio Men Women 1/2 Avg.R isk 3.4 3.3 Avg.R isk 5.0 4.4 2X Avg.R isk 9.6 7.1 3X Avg.R isk 23.4 11.0 Not Available [facility] ([facility]) [address] [place], [address], 12/21/2024 13:08:04 12/21/19 25 12/21/2024 TSH+F REE T4 TSH 2.230 uIU/m L 0.450- 4.500 Not Available [facility] ([facility]) [address] [place], [address], 12/21/2024 13:08:06 12/21/19 25 12/21/2024 TSH+F REE T4 T4,free(dire ct) 0.92 NG/dL 0.82-1 .77 Not Available [facility] ([facility]) [address] [place], [address], 12/21/2024 13:08:06 12/21/19 25 12/21/2024 COMP. METAB OLIC PANEL (14) glucose 82 mg/dL 70-99 Not Available [facility] ([facility]) [address] [place], [address], 12/21/2024 13:08:07 12/21/19 25 12/21/2024 COMP. METAB OLIC PANEL (14) BUN 16 mg/dL 8-27 Not Available [facility] ([facility]) [address] [place], [address], 12/21/2024 13:08:07 12/21/19 25 12/21/2024 COMP. METAB OLIC PANEL (14) creatinine 0.84 mg/dL 0.57-1 .00 Not Available [facility] ([facility]) [address] [place], [address], 12/21/2024 13:08:07 12/21/19 25 12/21/2024 COMP. METAB OLIC PANEL (14) eGFR 77 mL/mi n/1.7 3 >59 Not Available [facility] ([facility]) [address] [place] [place], [address], 12/21/2024 13:08:07 12/21/19 25 12/21/2024 COMP. METAB OLIC PANEL (14) BUN/creatini ne ratio 19 12-28 Not Available [facility] ([facility]) [address] [place] [place], [address], 12/21/2024 13:08:07 12/21/19 25 12/21/2024 COMP. METAB OLIC PANEL (14) sodium 144 mmol/ L 134-14 4 Not Available [facility] ([facility]) [address] [facility], [place], [address], 12/21/2024 13:08:07 12/21/19 25 12/21/2024 COMP. METAB OLIC PANEL (14) potassium 4.9 mmol/ L 3.5-5. 2 Not Available [facility] ([facility]) [address] [place], [address], 12/21/2024 13:08:07 12/21/19 25 12/21/2024 COMP. METAB OLIC PANEL (14) chloride 109 mmol/ L 96-106 above high normal Not Available [facility] ([facility]) [address] [place] [place], [address], 12/21/2024 13:08:07 12/21/19 25 12/21/2024 COMP. METAB OLIC PANEL (14) carbon dioxide, total 22 mmol/ L 20-29 Not Available [facility] ([facility]) [address] [place] [place], [address], 12/21/2024 13:08:07 12/21/19 25 12/21/2024 COMP. METAB OLIC PANEL (14) calcium 11.2 mg/dL 8.7-10 .3 above high normal Not Available [facility] ([facility]) [address] [place], [address], 12/21/2024 13:08:07 12/21/19 25 12/21/2024 COMP. METAB OLIC PANEL (14) protein, total 6.8 g/dL 6.0-8. 5 Not Available [facility] ([facility]) [address] [place], [address], 12/21/2024 13:08:07 12/21/19 25 12/21/2024 COMP. METAB OLIC PANEL (14) albumin 4.4 g/dL 3.9-4. 9 Not Available [facility] ([facility]) [address] [place], [address], 12/21/2024 13:08:07 12/21/19 25 12/21/2024 COMP. METAB OLIC PANEL (14) globulin, total 2.4 g/dL 1.5-4. 5 Not Available [facility] ([facility]) [address] [place], [address], 12/21/2024 13:08:07 12/21/19 25 12/21/2024 COMP. METAB OLIC PANEL (14) bilirubin, total 0.5 mg/dL 0.0-1. 2 Not Available [facility] ([facility]) [address] [place], [address], 12/21/2024 13:08:07 12/21/19 25 12/21/2024 COMP. METAB OLIC PANEL (14) alkaline phosphatase 104 IU/L 44-121 Not Available [facility] ([facility]) [address] [place], [address], 12/21/2024 13:08:07 12/21/19 25 12/21/2024 COMP. METAB OLIC PANEL (14) AST (SGOT) 25 IU/L 0-40 Not Available [facility] ([facility]) [address] [place], [address], 12/21/2024 13:08:07 12/21/19 25 12/21/2024 COMP. METAB OLIC PANEL (14) ALT (SGPT) 28 IU/L 0-32 Not Available [facility] ([facility]) [address] [facility], [place], [address], 12/21/2024 13:08:07 12/21/19 25 12/21/2024 VITAM IN B12 AND FOLAT E vitamin B12 270 pg/mL 232-12 45 Not Available [facility] ([facility]) [address] [place], [address], 12/21/2024 13:08:08 12/21/19 25 12/21/2024 VITAM IN B12 AND FOLAT E folate (folic acid), serum 9.2 NG/mL >3.0 A serum folat e danitza ntrat ion of less than 3.1 ng/mL is consi dered to repre sent clini sandhya defic iency . Not Available [facility] ([facility]) [address] [facility], [place], [address], 12/21/2024 13:08:08 12/21/19 25 12/21/2024 HEMOG LOBIN A1C hemoglobin A1C 5.3 % 4.8-5. 6 Predi abete s: 5.7 - 6.4 Diabe stanford: >6.4 Glyce gricelda contr ol for adult s with diabe stanford: <7.0 Not Available [facility] ([facility]) [address] [place], [address], 12/21/2024 13:08:09 12/21/19 25 12/21/2024 INSUL IN insulin 6.8 uIU/m L 2.6-24 .9 Not Available [facility] ([facility]) [address] [place], [address], 12/21/2024 13:08:10 12/21/19 12/21/2024 CBC WITH DIFFE RENTI AL/PL ATELE T WBC 4.8 x10e3 /uL 3.4-10 .8 Not Available [facility] ([facility]) [address] [place], [address], 12/21/2024 13:08:11 12/21/19 25 12/21/2024 CBC WITH DIFFE RENTI AL/PL ATELE T RBC 5.24 x10e6 /uL 3.77-5 .28 Not Available [facility] ([facility]) [address] [facility], [place], [address], 12/21/2024 13:08:11 12/21/1912/21/2024 CBC WITH DIFFE RENTI AL/PL ATELE T hemoglobin 14.5 g/dL 11.1-1 5.9 Not Available [facility] ([facility]) [address] [place], [address], 12/21/2024 13:08:11 12/21/1912/21/2024 CBC WITH DIFFE RENTI AL/PL ATELE T hematocrit 46.6 % 34.0-4 6.6 Not Available [facility] ([facility]) [address] [place], [address], 12/21/2024 13:08:11 12/21/1912/21/2024 CBC WITH DIFFE RENTI AL/PL ATELE T MCV 89 fL 79-97 Not Available [facility] ([facility]) [address] [place], [address], 12/21/2024 13:08:11 12/21/1912/21/2024 CBC WITH DIFFE RENTI AL/PL ATELE T MCH 27.7 pg 26.6-3 3.0 Not Available [facility] ([facility]) [address] [place], [address], 12/21/2024 13:08:11 12/21/1912/21/2024 CBC WITH DIFFE RENTI AL/PL ATELE T MCHC 31.1 g/dL 31.5-3 5.7 below low normal Not Available [facility] ([facility]) [address] [facility], [place], [address], 12/21/2024 13:08:11 12/21/19 25 12/21/2024 CBC WITH DIFFE RENTI AL/PL ATELE T RDW 15.8 % 11.7-1 5.4 above high normal Not Available [facility] ([facility]) [address] [facility], [place], [address], 12/21/2024 13:08:11 12/21/1912/21/2024 CBC WITH DIFFE RENTI AL/PL ATELE T platelets 280 x10e3 /uL 150-45 0 Not Available [facility] ([facility]) [address] [facility], [place], [address], 12/21/2024 13:08:11 12/21/19 25 12/21/2024 CBC WITH DIFFE RENTI AL/PL ATELE T neutrophils 50 % notest ab. Not Available [facility] ([facility]) [address] [facility], [place], [address], 12/21/2024 13:08:11 12/21/19 25 12/21/2024 CBC WITH DIFFE RENTI AL/PL ATELE T lymphs 38 % notest ab. Not Available [facility] ([facility]) [address] [facility], [place], [address], 12/21/2024 13:08:11 12/21/19 25 12/21/2024 CBC WITH DIFFE RENTI AL/PL ATELE T monocytes 8 % notest ab. Not Available [facility] ([facility]) [address] [facility], [place], [address], 12/21/2024 13:08:11 12/21/19 25 12/21/2024 CBC WITH DIFFE RENTI AL/PL ATELE T eos 3 % notest ab. Not Available [facility] ([facility]) [address] [facility], [place], [address], 12/21/2024 13:08:11 12/21/19 25 12/21/2024 CBC WITH DIFFE RENTI AL/PL ATELE T basos 1 % notest ab. Not Available [facility] ([facility]) [address] [facility], [place], [address], 12/21/2024 13:08:11 12/21/19 25 12/21/2024 CBC WITH DIFFE RENTI AL/PL ATELE T neutrophils (absolute) 2.4 x10e3 /uL 1.4-7. 0 Not Available [facility] ([facility]) [address] [facility], [place], [address], 12/21/2024 13:08:11 12/21/19 25 12/21/2024 CBC WITH DIFFE RENTI AL/PL ATELE T lymphs (absolute) 1.8 x10e3 /uL 0.7-3. 1 Not Available [facility] ([facility]) [address] [place], [address], 12/21/2024 13:08:11 12/21/19 25 12/21/2024 CBC WITH DIFFE RENTI AL/PL ATELE T monocytes(ab solute) 0.4 x10e3 /uL 0.1-0. 9 Not Available [facility] ([facility]) [address] [place], [address], 12/21/2024 13:08:11 12/21/19 25 12/21/2024 CBC WITH DIFFE RENTI AL/PL ATELE T eos (absolute) 0.1 x10e3 /uL 0.0-0. 4 Not Available [facility] ([facility]) [address] [facility], [place], [address], 12/21/2024 13:08:11 12/21/19 25 12/21/2024 CBC WITH DIFFE RENTI AL/PL ATELE T baso (absolute) 0.0 x10e3 /uL 0.0-0. 2 Not Available [facility] ([facility]) [address] [facility], [place], [address], 12/21/2024 13:08:11 12/21/19 25 12/21/2024 CBC WITH DIFFE RENTI AL/PL ATELE T immature granulocytes 0 % notest ab. Not Available [facility] ([facility]) [address] [facility], [place], [address], 12/21/2024 13:08:11 12/21/19 25 12/21/2024 CBC WITH DIFFE RENTI AL/PL ATELE T immature grans (abs) 0.0 x10e3 /uL 0.0-0. 1 Not Available [facility] ([facility]) [address] [facility], [place], [address], 12/21/2024 13:08:11 05/20/20 25 05/20/2025 COLOG UARD cologuard result reportable POSITI VE negati ve abnormal The Colog uard (TM) test was perfo rmed on this speci men. POSIT KALANI TEST RESUL T. A posit kalani Colog uard resul t shoul d be follo wed with a colon oscop y or visua l exami natio n of the colon . The stanley l value (refe rence range ) for this assay is negat kalani. TEST DESCR IPTIO N: [place] site algor ithmi c [place] of stool [place] with hemog lobin immun oassa y. Quant itati ve value s of indiv idual bioma rkers are not repor table and are not assoc iated with indiv idual bioma rker resul t refer ence range s. Colog uard is inten ded for color ectal cance r scree maya of adult s of eithe r sex, 45 years or older , who are at [facility] for color ectal cance r ([facility]) . Colog uard has been appro [place] for use by the [place] FDA. The perfo rmanc e of Colog uard was estab lishe d in a cross secti onal study of [facility] adult s aged 50-84 . Colog uard perfo rmanc e in patie nts ages 45 to 49 years was estim ated by sub-g roup [place] sis of near- age group s. Colon oscop ies perfo rmed for a posit kalani resul t may find as the most clini jeniffer signi fican t lesio n: color ectal cance r [...] study of 0 indiv idual s at [facility] risk for color ectal cance r who [...] wing locat ion: www.e xactl abs.c om/re sulamauri . Addit ional descr iptio n of the Colog uard test proce ss, warni ngs and preca ution s can be found at [email or web address]. Not Available [facility] [address], [place], [address], 05/24/2025 06:16:01 03/16/20 24 03/15/2024 MAMMO , scree maya, digit al, bilat eral No observ ation record ed. [address] [facility] [address], [place], [address], 03/23/2024 14:46:24 05/07/2005/04/2024 MRI, breas t, bilat eral, w/wo contr ast No observ ation record ed. [address] [facility], [place], [address], 05/08/2024 11:10:36 12/19/1912/18/2024 MAMMO , diagn ostic , bilat eral No observ ation record ed. [address] [facility] [address], [place], [address], 12/18/2024 13:57:43 01/17/20 25 04/13/2019 NM, parat hyroi d scan No observ ation record ed. [address], [address], 01/17/2025 08:55:59 Result Notes None recorded. Problems Name Problem SNOMED Code Status Onset Date Resolution Date Notes Provider Name and Address Organization Details Recorded Time Obesity 067648303 Active 2023 CALVIN Barfield Attn: Lashon wagner,[address] [facility], [place], [address], [facility] 23:22:50 Body mass index 30+ - obesity 401104996 Active 2023 CALVIN Barfield Attn: Lashon wagner,[address] [place], [address], [place] [facility] 4 23:22:51 Mixed anxiety and depressive disorder 803023429 Active 2023 CALVIN Barfield Attn: Lashon wagner,[address] [place], [address], [place] [facility] 4 23:23:55 Headache 06184131 Active 2023 CALVIN Barfield Attn: Lashon wagner,[address] [place], [address], [place] [facility] 4 23:23:56 Osteoarthri tis 468920744 Active 2023 CALVIN Barfield Attn: Lashon wagner,[address] [place], [address], [place] [facility] 4 23:23:57 Dyssomnia 06596814 Active 2023 CALVIN Barfield Attn: Lashon wagner,[address] [place], [address], [place] [facility] 4 23:23:58 Genital herpes simplex 00707536 Active 2023 CALVIN Barfield Attn: Lashon wagner,[address] [place], [address], [place] [facility] 4 23:24:00 Long-term drug therapy Active 2023 CALVIN Barfield Attn: Lashon wagner,[address] [place], [address], [place] [facility] 4 23:24:01 Obese class I 7936244058587 07 Active 2024 CALVIN Barfield Attn: Lashon wagner,[address] [place], [address], [place] [facility] 5 09:21:53 Problem Notes None recorded. Procedures Surgical History Date Name Laterality Status Provider Name and Address Organization Details Recorded Time 01/06/202 5 Orthopedic surgery ss completed Eboni Guido [facility] 08/03/2024 16:19:54 Joint Replacement completed Jayant Greenfield MA [facility] 12/02/2023 09:25:02 Knee Surgery completed Jayant Greenfield MA [facility] 05/30/2024 08:48:43 section completed Jayant Greenfield MA [facility] 12/02/2023 09:25:15 Imaging Results None recorded. Procedure Notes None recorded. Medical Equipment None Reported. Allergies Allergen ID Allergen Name Allergen Category Reaction Reaction Severity Criticality Documentation Date Start Date Code Code System Note Provider Name and Address Organization Details Recorded Time 17090830 Levaquin medicatio n Not available Not available Not available 11/30/2023 21407 2 RxNorm BUCKY Charlton, [facility] 11:45:59 800216 levofloxa jared medicatio n swelling Not available low 05/24/20252024 38460 RxNorm Joint swell ing Not Available chay - External Data Service - prod 12:04:18 Medications Name Sig Start Date Stop Date Status Note LastModified by Organization Details LastModified Time amoxicillin 500 mg capsule TAKE 4 CAPSULES 1 HOURS BEFORE DENTAL APPOINTME NT 05/30 completed Not Available Not Available Not Available methocarbam ol 500 mg tablet TAKE 2 TABLETS DAILY 2024 active Not Available Not Available Not Avai lable azithromyci n 250 mg tablet 10/03 completed Not Available Not Available Not Available valacyclovi r 1 gram tablet TAKE 1 TABLET EVERY 12 HOURS NEEDED 2024 active Not Available Not Available Not Avai lable meloxicam 15 mg tablet TAKE 1 TABLET BY MOUTH EVERY DAY active Not Available Not Available No t Available clonazepam 1 mg tablet TAKE ONE AND ONE-HALF TABLETS DAILY DIRECTED 2024 active Not Available Not Available Not Avai lable topiramate 25 mg tablet Take 1 tablet twice a day by oral route. 12/20 completed Not Available Not Available Not Available aspirin 81 mg tablet,gema yed release TAKE 1 TABLET BY MOUTH TWICE DAILY 05/30 completed Not Available Not Available Not Available tramadol 50 mg tablet 05/30 completed Not Available Not Available Not Available acetaminoph en 500 mg tablet TAKE 2 TABLETS BY MOUTH EVERY 8 HOURS 05/30 completed Not Available Not Available Not Available amoxicillin 500 mg tablet TAKE FOUR TS PO 1 HOUR B DAPP 12/01 completed Not Available Not Available Not Available triamcinolo ne acetonide 0.025 % topical cream APPLY TOPICALLY TO THE AFFECTED AREA TWICE DAILY active Not Available Not Available No t Available baclofen 10 mg tablet 12/20 completed Not Available Not Available Not Available diclofenac sodium 75 mg tablet,gema yed release TAKE 1 TABLET BY MOUTH TWICE DAILY 10/03 completed Not Available Not Available Not Available mupirocin 2 % topical ointment APPLY TOPICALLY TO NOSTRILS TWICE DAILY X 5 DAYS PRIOR TO SURGERY 05/09 completed Not Available Not Available Not Available ergocalcife rol (vitamin D2) 1,250 mcg (50,000 unit) capsule TAKE 1 CAPSULE BY MOUTH 2 TIMES A WEEK FOR 8 WEEKS. FOLLOW UP WITH PCP active Not Available Not Available No t Available methylpredn isolone 4 mg tablets in a dose pack FOLLOW PACKAGE DIRECTION S 05/09 completed Not Available Not Available Not Available amoxicillin 875 mg-potassiu m clavulanate 125 mg tablet TAKE 1 TABLET BY MOUTH TWICE DAILY 10/03 completed Not Available Not Available Not Available oxycodone 5 mg tablet TAKE 1 TABLET BY MOUTH EVERY 6 HOURS NEEDED 12/20 completed Not Available Not Available Not Available escitalopra m 5 mg tablet TAKE 1 TABLET DAILY 2024 active Not Available Not Available Not Avai lable topiramate 50 mg tablet Take 1 tab p.o. twice daily 2023 active Not Available Not Available Not Avai lable duloxetine 30 mg capsule,del ayed release TAKE 1 CAPSULE BY MOUTH DAILY 03/23 completed Not Available Not Available Not Available pregabalin 75 mg capsule 05/30 completed Not Available Not Available Not Available oxycodone 10 mg tablet TAKE 1 TO 2 TABLETS BY MOUTH EVERY 4 TO 6 HOURS 12/20 completed Not Available Not Available Not Available Stimulant Laxative Plus 8.6 mg-50 mg tablet TAKE 2 TABLETS BY MOUTH TWICE DAILY. MAY INCREASE TO FOUR TIMES DAILY IF NEEDED. HOLD MEDICATIO N FOR DIARRHEA 05/09 completed Not Available Not Available Not Available Ubrelvy 100 mg tablet TAKE 1 TABLET BY MOUTH AT ONSET OF MIGRAINE. MAY REPEAT IN 2 HOURS NEEDED. MAX 200 MG / 24 HOURS active Not Available Not Available No t Available Ubrelvy 50 mg tablet TAKE 1 TABLET BY MOUTH AT ONSET. MAY REPEAT IN 2 HOURS NEEDED 12/01 completed Not Available Not Available Not Available Vitals Date Recorded Body height Body mass index (BMI) Body weight Respiratory rate Oxygen saturation Oxygen saturation in Arterial blood by Pulse oximetry Heart rate Systolic And Diastolic Provider Name and Address Organization Details Last Updated DateTime 4 160.02 cm 30 kg/m2 72402.2 2 g 20 /min 97 % 97 % 76 /min 126/82 mm[Hg] Jayant Greenfield MA [facility] 4 08:43:44 Date Recorded Systolic And Diastolic Provider Name and Address Organization Details Last Updated DateTime 12/20/2024 130/80 mm[Hg] CALVIN Barfield Attn: Accounting,[address] [place], [address], [facility] 12/20/2024 09:34:32 Date Recorded Body height Body mass index (BMI) Body weight Respiratory rate Oxygen saturation Oxygen saturation in Arterial blood by Pulse oximetry Heart rate Systolic And Diastolic Provider Name and Address Organization Details Last Updated DateTime 5 160.02 cm 31.5 kg/m2 89183.4 4 g 20 /min 99 % 99 % 75 /min 122/80 mm[Hg] Jayant Greenfield MA [facility] 5 09:20:40 Date Recorded Heart rate Systolic And Diastolic Systolic And Diastolic Provider Name and Address Organization Details Last Updated DateTime 05/30/2024 76 /min 130/80 mm[Hg] 140/80 mm[Hg] CALVIN Barfield Attn: Accounting[address] [place], [address], [facility] 05/30/2024 09:14:24 Date Recorded Body height Body mass index (BMI) Body weight Respiratory rate Systolic And Diastolic Provider Name and Address Organization Details Last Updated DateTime 05/30/2024 160.02 cm 32.4 kg/m2 31454.4 g 20 /min 140/82 mm[Hg] Jayant Greenfield [place] [facility] 08:52:28 Social History Question Answer Notes LastModified by Organizat ion Details LastModified Time Tobacco Smoking Status Former Smoker Jayant Greenfield MA null, [place] [facility] 11/30/2023 11:47:02 Do You Have An Advance Directive? No Information not available 11/30/2023 Are You Blind Or Do You Have Difficulty Seeing? No Information not available 11/30/2023 What Is Your Level Of Caffeine Consumption? Moderate Tea/ Coffee 1 Cup Information not available 11/30/2023 In The 14 Days Before Symptom Onset, Have You Had Close Contact With A Laboratory-confir med COVID-19 While That Case Was Ill? No Information not available 11/30/2023 In The 14 Days Before Symptom Onset, Have You Had Close Contact With A Person Who Is Under Investigation For COVID-19 While That Person Was Ill? No Information not available 11/30/2023 Have You Been To An Area Known To Be High Risk For COVID-19? No Information not available 11/30/2023 Are You Deaf Or Do You Have Serious Difficulty Hearing? No Information not available 11/30/2023 What Type Of Diet Are You Following? REGULAR Information not available 11/30/2023 Are There Any Guns Present In Your Home? No Information not available 11/30/2023 What Was The Date Of Your Most Recent Tobacco Screening? 12/20/2024 Information not available 12/20/2024 What Is Your Current Pack Years? 10-19packyea rs Information not available 11/30/2023 What Is Your Relationship Status? Information not available 11/30/2023 Do You Use Your Seat Belt Or Car Seat Routinely? Yes Information not available 11/30/2023 Do You Have Smoke And Carbon Monoxide Detectors In Your Home? Yes Information not available 11/30/2023 At What Age Did You Start Smoking Tobacco? 16 Information not available 11/30/2023 How Much Tobacco Do You Smoke? No Information not available 11/30/2023 Do You Use Sunscreen Routinely? Yes Information not available 11/30/2023 Has Tobacco Cessation Counseling Been Provided? Yes Information not available 11/30/2023 On What Date Was Tobacco Cessation Counseling Provided? 12/20/2024 Information not available 12/20/2024 Sex: Female Functional Status Question Answer Note LastModified by Organizat ion Details LastModified Time Do you use any illicit or recreational drugs? No Information not available 11/30/2023 Do you or have you ever used any other forms of tobacco or nicotine? No Information not available 11/30/2023 What is your level of alcohol consumption? None Information not available 11/30/2023 Are you currently employed? Yes Information not available 12/20/2024 Are you able to care for yourself independently? Yes Information not available 11/30/2023 What is your occupation? teacher Information not available 12/20/2024 What is your exercise level? Occasional Information not available 11/30/2023 Mental Status Question Answer Note LastModified by Organization D etails LastModified Time Do you feel stressed (tense, restless, nervous, or anxious, or unable to sleep at night)? [id number] Information not available 11/30/2023 Family History Nothing Reported. Medical History Condition Response Coronary Artery Disease N Other N High Blood Pressure N Atrial Fibrillation N Kidney or Bladder Problems N Thyroid Problems N GI Problems N Depression Y COPD N Blood Clots N Skin Problems N Anemia N Heart Attack ([place]) N Anxiety Disorder Y Diabetes N Muscle, Joint, or Bone Problems N Seizures/Epilepsy N Acid Reflux (GERD) N Cancer N Stroke N Asthma N Allergies N High Cholesterol N Hepatitis N Liver Disease N Headaches Y Heart Failure N Osteoporosis N Gynecological History Statement/Question Response Menses Monthly N Current Control Method BCPs Obstetrics History GPAL:G 3 P 3 0 0 2 Type Value Multiple Births 2 Full Term 3 Induced 0 Spontaneous 0 Premature 0 Living 2 Total 3 Immunizations Vaccine Type Date Status Note Provider Nam e and Address Organization Details Recorded Time Influenza, split virus, quadrivalent, preservative 4 completed Jayant [place], [place] [facility] 05/29/2024 10:39:42 Influenza, split virus, quadrivalent, preservative 9 completed [place] [facility] 05/29/2024 10:39:42 Influenza, MDCK, quadrivalent, PF 2 completed [place] [facility] 05/29/2024 10:39:42 MMR 7 completed Jayant [place] [facility] 05/29/2024 10:39:42 COVID-19, mRNA, LNP-S, PF, 100 mcg/0.5mL dose or 50 mcg/0.25mL dose 1 completed Jayant [place] [facility] 05/29/2024 10:39:42 COVID-19, mRNA, LNP-S, PF, 100 mcg/0.5mL dose or 50 mcg/0.25mL dose 1 completed Jayant [place] [facility] 05/29/2024 10:39:42 COVID-19, mRNA, LNP-S, PF, 100 mcg/0.5mL dose or 50 mcg/0.25mL dose 1 completed Jayant [place] [facility] 05/29/2024 10:39:42 COVID-19, mRNA, LNP-S, bivalent, PF, 50 mcg/0.5 mL or 25mcg/0.25 mL dose 2 completed Jayant [place] [facility] 05/29/2024 10:39:42 Tdap 7 completed Jayant [place] [facility] 05/29/2024 10:39:42 Influenza, split virus, trivalent, PF 4 completed Jayant [place] [facility] 05/29/2024 10:39:42 Influenza, split virus, quadrivalent, PF 3 completed Jayant [place] 05/29/2024 10:39:42 COVID-19, mRNA, LNP-S, PF, 50 mcg/0.5 mL 4 completed Not Available formerly [facility] 12/20/2024 09:03:58 Influenza, split virus, trivalent, PF 4 completed Not Available formerly [facility] 12/20/2024 09:03:58 Past Encounters Encounter ID Performer Location Encounter Start Date Encounter Closed Date Diagnosis/Indication Diagnosis SNOMED-CT Code Diagnosis ICD10 Code Diagnosis IMO Codes Diagnosis Note [id number] Oral Chow MD [facility] [place] [address] [place] [address] 12/02/2023 08:31:57 12/02/2023 09:49:28 Mixed anxiety and depressive disorder 976336638 F41.8 stable on duloxetine 30mg daily. Headache 50875829 R51.9 stable on ubrelvy 100mg PRN dosing. Osteoarthritis 795556940 M19.90 no acute changes. hx noted. Long-term drug therapy 435059041 Z79.899 cmp, cbc and b12, folate labs are due Dyssomnia 65051362 G47.9 stable on clonazepam 1mg qhs. Genital he rpes simplex 42338124 A60.9 stable on valtrex 1gm therapy PRN use. Cholesterol screening 27 1535459 Z13.220 fasting lipids due. Diabetes m ellitus screening 697799410 Z13.1 a1c screening due. Thyroid di sorder screening 987355513 Z13.29 Thyroid lab panel due Body mass index 30+ - obesity 933703993 Z68.30 bmi 30. Obesity 673005541 E66.9 discussed healthy diet, exercise, controllin g carbohydra stanford and added sugars in the diet [id number] Oral Chow MD [facility] [place] [address] [place] [address] 04/04/2024 15:21:40 04/05/2024 15:50:23 Sore throat 711304407 J02.9 [id number] Oral Chow MD [facility] [place] [address] [place] [address] 05/30/2024 08:42:49 05/31/2024 15:54:14 Mixed anxiety and depressive disorder 983453307 F41.8 on lexapro 5mg daily. stable at this time Headache 43887463 R51.9 stable on ubrelvy 100mg PRN dosing. topiramate back on board is helping. Osteoarthritis 315847217 M19.90 no acute changes. hx noted. Dyssomnia 40251067 G47.9 stable on clonazepam 1mg qhs. Genital he rpes simplex 69127821 A60.9 stable on valtrex 1gm therapy PRN use. Long-term drug therapy 166135582 Z79.899 cmp, cbc and b12, folate labs are due Cholesterol screening 27 9351431 Z13.220 fasting lipids due. Diabetes m ellitus screening 975567360 Z13.1 a1c screening due. Thyroid di sorder screening 237280771 Z13.29 Thyroid lab panel due Body mass index 30+ - obesity 984342384 Z68.30 bmi 32.4 Obesity 311579857 E66.9 discussed healthy diet, exercise, controllin g carbohydra stanford and added sugars in the diet Adult heal th examination 677938743 Z00.01 annual wellness completed [id number] Oral Chow MD [facility] [place] [address] [place] [address] 12/20/2024 09:00:35 12/20/2024 09:55:20 Mixed anxiety and depressive disorder 818510735 F41.8 on lexapro 5mg daily. stable at this time Headache 46574428 R51.9 stable on ubrelvy 100mg PRN dosing. topiramate back on board is helping. Osteoarthritis 738234081 M19.90 no acute changes. hx noted. Dyssomnia 26592869 G47.9 stable on clonazepam 1mg qhs. Genital he rpes simplex 60946359 A60.9 stable on valtrex 1gm therapy PRN use. Long-term drug therapy 984581629 Z79.899 Screening for malignant neoplasm of colon 978015463 Z12.11 458789 Body mass index 30+ - obesity 424122580 Z68.30 bmi 31.5 Obese class I 4694454262 59624 E66.811 0164517388 discussed healthy diet, exercise, controllin g carbohydra stanford and added sugars in the diet Health Concerns Section Related Observation LastModified by Organization Detai ls LastModified Time None Recorded Concern Status LastModified by Organization Details LastModified Time None Recorded Advance Directives Directive N: Payers Insurance Date Sequence Insurance Name Policy Number Policy Reagan Covered Member ID Reagan Member ID Guarantor Name 06/01/2025 1 [facility] [id number] Janae Galeano [id number] Janae Galeano Notes Date Note Type Note Provider Name and Address Organization Details Recorded Time 12/02/2023 text/html InsomniaReported by Patientpt is stable, taking clonazepam 1mg qhs PRN Anxiety/DepressionRepo rted by Patientpt is feeling stable on duloxetine 30mg daily and lexapro 5mg daily. HeadacheReported by Patientstable on ubrelvy 100mg PRN use. planned for total RKA Dr. Chang at [facility] december 21. CALVIN Barfield Attn: Accounting[address] [place], [address], [facility] 12/19/2023 23:24:46 05/30/2024 text/html InsomniaReported by Patientpt is stable, taking clonazepam 1mg qhs PRN Anxiety/DepressionRepo rted by Patientpt is feeling stable on duloxetine 30mg daily and lexapro 5mg daily. HeadacheReported by Patientstable on ubrelvy 100mg PRN use. CALVIN Barfield Attn: Accounting[address] [place], [address], [facility] 05/30/2024 09:19:50 12/20/2024 text/html InsomniaReported by Patientpt is stable, taking clonazepam 1mg qhs PRN Anxiety/DepressionRepo rted by Patientpt is feeling stable on duloxetine 30mg daily and lexapro 5mg daily. HeadacheReported by Patientstable on ubrelvy 100mg PRN use. CALVIN Barfield Attn: Accounting[address] [place], [address], [facility] 12/20/2024 09:39:33 OBGyn Episode No OBEpisode recorded.
--- OUTSIDE RECORDS SUMMARY | 2025-06-03 00:16 | XMS_ITS | Clinical Summary ---
Author Organization [facility] Address [address] [place] [address] Phone Care Team Providers Care Patient Care Assistant Name Role Phone Unavailable Primary Care Provider Unavailabl e Allergies Active Allergy Reactions Criticality Noted Date Comments Levofloxacin Swelling Low 07/28/2024 Joint swelling Medications escitalopram oxalate (LEXAPRO) 5 mg tablet Take 5 mg by mouth daily. Active methocarbamoL (ROBAXIN) 500 mg tablet Take 500 mg by mouth daily at bedtime. Active valACYclovir (VALTREX) 1 gram tablet Take 1 Gram by mouth daily at bedtime. Active topiramate (TOPAMAX) 25 mg tablet Take 25 mg by mouth daily at bedtime. Active midodrine (PROAMATINE) 5 mg tablet Take 1 Tablet (5 mg) by mouth 2 times daily. 60 Tablet 1 08/06/2024 1:07 PM FENDER MECHANIC APPRENTICE 5 Active sennosides-docus ate sodium (SENNA-S) 8.6-50 mg tablet Take 1 Tablet by mouth 2 times daily. 30 Tablet 1 08/06/2024 1:07 PM FENDER MECHANIC APPRENTICE 5 Active oxyCODONE (ROXICODONE) 10 mg tabletIndication s:Closed fracture of distal end of right femur, unspecified fracture morphology, initial encounter ([facility]) Take 1 Tablet (10 mg) by mouth every 4 hours as needed for break-through pain. Max Daily Amount: 60 mg 20 Tablet 08/06/2024 1:07 PM FENDER MECHANIC APPRENTICE 5 Active naloxone (NARCAN) 4 mg/spray [place], Non-Aerosol EMERGENCY USE ONLY: Administer 1 spray (4 mg) in one nostril one time. May repeat in alternating nostrils every 2-3 min until responsive or EMS arrives. 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 No 07/28/2024 Food Insecurity Answer Date Recorded Patient needs follow up regardin 11/27/2024 Transportation Needs Answer Date Record ed Patient needs follow up regardin 11/27/2024 Housing Stability Answer Date Recorded Social/Environmental Concerns No concerns Utility Needs Answer Date Recorded Patient needs follow up regardin 11/27/2024 Comments No Sex and Gender Information Value Date Recorded Sex Assigned at Not on file Legal Sex Female 12:40 PM FENDER MECHANIC APPRENTICE Gender Identity Not on file Sexual Orientation Not on file Last Filed Vital Signs Vital Sign Reading Time Taken Comments Blood Pressure 99/56 08/06/2024 8:00 AM FENDER MECHANIC APPRENTICE Pulse 85 08/06/2024 8:00 AM FENDER MECHANIC APPRENTICE Temperature 36.7 C (98.1 F) 08/06/2024 8:00 AM FENDER MECHANIC APPRENTICE Respiratory Rate 19 08/06/2024 8:00 AM FENDER MECHANIC APPRENTICE Oxygen Saturation 98% 08/06/2024 8:00 AM FENDER MECHANIC APPRENTICE Inhaled Oxygen Concentration - - Weight 88.9 kg (195 lb 14.4 oz) 025 10:00 AM FENDER MECHANIC APPRENTICE Height 162.6 cm (5' 4) 07/28/2024 12:4 5 PM FENDER MECHANIC APPRENTICE Body Mass Index 33.63 07/28/2024 12:45 PM FENDER MECHANIC APPRENTICE Plan of Treatment Health Maintenance Due Date Last Done Comments Pre-Diabetes and Diabetes Screening 1960 DTAP/TDAP/TD VACCINES (1 - Tdap) 1978 BREAST CANCER SCREENING 1999 FIT-DNA Q 3 years 2004 FIT/FOBT Q 1 year 2004 Flex Sig/CT Colonography Q 5 years 2004 PNEUMOCOCCAL VACCINE 50+ YEA RS (1 of 1 - PCV) 2009 ZOSTER VACCINE (1 of 2) 2009 COLORECTAL SCREENING 07/24/2020 07/24/2010 Colorectal Cancer Screening 07/24/2020 OSTEOPOROSIS SCREENING 2024 INFLUENZA VACCINE (#1) 2025 04/28/2020, 2018 RSV VACCINE (60+ or ) (1 - 1-dose 75+ series) 2034 Medical Devices Implanted Type Area Certified Ophthalmic Medical Technician Device Identifier Shelf Expiration Date Model / Serial / Lot Z Nail Rf 10 Mm X 20 Cm Implanted:Qty: 1 on 07/30/2024 by Victor Hugo Leigh MD at [facility] Nail Right: Femur [employer] [id number] / / [id number] Description:1X ADD LG Plate Ncb Pp Dist Fem Rt 18hl 355mm Ti 02.51268.018 - [id number] Implanted:Qty: 1 on 07/30/2024 by Victor Hugo Leigh MD at [facility] Plate Right: Femur [employer] [id number] / / N/A Description:Load # [id number] Sterilization Date 07-28-24 Screw Ncb Uni 5.0x16mm 02.12329.016 - [id number] Implanted:Qty: 1 on 07/30/2024 by Victor Hugo Leigh MD at [facility] Screw Right: Femur [employer] [id number] / / N/A Description:Load # [id number] Sterilization Date 07-28-24 Screw Ncb Loc Cap 0225596.300 - [id number] Implanted:Qty: 6 on 07/30/2024 by Victor Hugo Leigh MD at [facility] Screw Right: Femur [employer] [id number] / / Description:Load # [id number] Sterilization Date 07-28-24 Screw Canc Fa 6.0x60mm 28-8007-477-60 - [id number] Implanted:Qty: 1 on 07/30/2024 by Victor Hugo Leigh MD at [facility] Screw Right: Femur [employer] 05/26/2034 [id number] / / [id number] Screw Ft Fa 5.0x35mm [id number] - [id number] Implanted:Qty: 1 on 07/30/2024 by Victor Hugo Leigh MD at [facility] Screw Right: Femur [employer] 03/05/2034 [id number] / / [id number] Screw Canc Dis Ang 6x75mm [id number] - [id number] Implanted:Qty: 1 on 07/30/2024 by Victor Hugo Leigh MD at [facility] Right: Femur [employer] 05/30/2034 [id number] / / [id number] Screw Ncb Canc 5.0x75mm 32mm 02.70430.075 - [id number] Implanted:Qty: 1 on 07/30/2024 by Victor Hugo Leigh MD at [facility] Screw Right: Fem[employer] [id number] / / N/A Description:Load # [id number] Sterilization Date 07-28-24 Screw Ncb Canc 5.0x80mm 32mm 02.94830.080 - [id number] Implanted:Qty: 3 on 07/30/2024 by Victor Hugo Leigh MD at [facility] Screw Right: Fem[employer] [id number] / / Description:Load # [id number] Sterilization Date 07-28-24 Screw Ncb 5.0x40mm 02.82796.040 - [id number] Implanted:Qty: 1 on 07/30/2024 by Victor Hugo Leigh MD at [facility] Screw Right: Fem[employer] [id number] / / NA Description:Load # [id number] Sterilization Date 07-28-24 Screw Ncb 5.0x44mm 02.63326.044 - [id number] Implanted:Qty: 1 on 07/30/2024 by Victor Hugo Leigh MD at [facility] Screw Right: Fem[employer] [id number] / / N/A Description:Load # [id number] Sterilization Date 07-28-24 Screw Ncb 5.0x36mm 02.12250.036 - [id number] Implanted:Qty: 1 on 07/30/2024 by Victor Hugo Leigh MD at [facility] Screw Right: Femur [employer] [id number] / / N/A Description:Load # [id number] Sterilization Date 07-28-24 Disc Per Mfg Wire Carlos 2.0mm 290.20.280 - Old - [id number] Implanted:Qty: 2 on 07/30/2024 by Victor Hugo Leigh MD at [facility] Wire Right: Femur [employer] [id number] / / N/A Description:Load # [id number] Sterilization Date 07-28-24 Explanted Type Area Certified Ophthalmic Medical Technician Device Identifier Shelf Expiration Date Model / Serial / Lot Pin Neda Thrd /16in [id number] - [id number] Explanted:Qty : 2 on 07/30/2024 at [facility] Pin Right: Femur [facility] [id number] / / Description:LOAD [id number] JUL 24 SET 3 Screw Canc Fa 6.0x85mm [id number] 0 - [id number] Explanted:Qty : 1 on 07/30/2024 by Victor Hugo Leigh MD at [facility] Screw Right: Femur [employer] 03/[birth year]/2034 [id number] / / [id number] Insurance [employer] Directives For more information, please contact: [phone] * Full Code (Latest Code Status on File) Date Activated Date Inactivated Comments 07/28/2024 3:24 PM 08/06/2024 3:05 PM
--- NOTE | 2025-06-03 08:03 | WPDANESEPPF ---
Anes - Initial Pre Proc Eval Procedure: Operation Date: 06/03/25 10:00 Proposed Procedures p Screening Colonoscopy - Jayson Headley MD Date/Time: 06/03/25 08:03 Surgeon: Jayson Headley MD Pre Op Diagnosis: Screening/Positive Cologuard Patient Data Age: 64 Gender: F Height: 1.63 m Weight: 79.5 kg Allergies Allergy/AdvReac Type Severity Reaction Status Date / Time levofloxacin Allergy Unknown Unknown Verified 06/03/25 08:56 Home Medications ?Medication ?Instructions ?Recorded ?Confirmed ?Type clonazepam 1 mg tablet 1 mg PO DAILY 07/31/20 06/03/25 History methocarbamol 500 mg tablet 500 mg PO QID 07/31/20 06/03/25 History multivitamin,pt-qqfx-pvlofcbs 1 tablet PO DAILY 07/31/20 06/03/25 History (Complete Multivitamin tablet) valacyclovir 500 mg tablet 500 mg PO Q12H 07/31/20 06/03/25 History (Valtrex) escitalopram oxalate 5 mg tablet 5 mg PO DAILY 03/30/24 06/03/25 History (Lexapro) topiramate 25 mg tablet 25 mg PO DAILY 05/31/25 06/03/25 History Patient hx anesthesia problems: none Family hx anesthesia problems: none Results Review: All pre-operative results and documents have been reviewed as part of the pre-operative evaluation. [facility] Past Medical History Medical History Drop foot gait History of uterine fibroid Tubal ligation evaluation Migraine Depression Anemia Surgical History Surgical History History of section History of tubal ligation H/O knee surgery History of hip replacement H/O breast augmentation [place] teeth removed Status post endometrial ablation Social History Social History Smoking packs per day: 2 Smoking cigarettes per day: 40.0 Smoking status: Former smoker Second hand tobacco smoke exposure: No Smoking end date: 07/25/94 Alcohol intake: former Drinks per week: 4 Alcohol use details: quit age 54 Substance use: former Substance use type: marijuana Other substance usage details: age 24 Do You Feel Safe in your Home?: Yes Lack of Transportation: No Lack of Food: Never True Current Housing: I Have Housing Concerned About Future Housing: No Difficulty Paying Gas/Electric Bills: No Difficulty Paying for Meds: No Currently Unemployed: No Education: Master's Degree or Higher Difficulty w/ Childcare or Family Care: No Living arrangements: alone Spiritual care concerns: No Anes - Eval Final PreProcedure Day of Procedure 06/03/25 08:03 Patient weight: overweight Heart: regular rate and rhythm Lungs: clear to auscultation Airway: Mallampati scale class II Neurological: alert and oriented Last oral intake: >/= 8 hours ASA classification: II Emergent: no Anesthetic plan: proceed Anesthesia type and monitoring: general GIVS and standard monitoring Results Review: All pre-operative results and documents have been reviewed as part of the pre-operative evaluation. Informed Consent: The patient's anesthetic plan and its attendant risks and benefits were discussed with the patient/family/POA. Questions were solicited and answers provided to the satisfaction of the patient/family/POA.
[2025-06-03 08:50] VITALS: BP 132/77; PULSE 84; RESP 16; TEMP 36.2; O2SAT 97; BMI 28.9
[2025-06-03] MEDS: LACTATED RINGERS 1,000 ML 150 ML IV CONT (09:07)
--- NOTE | 2025-06-03 09:49 | PM.IMHP ---
H&P: HPI History of Present Illness Date/Time: 06/03/25 09:49 Chief Complaint: Positive Cologuard test Narrative: Patient referred for colonoscopy due to the recent finding of a positive Cologuard test. There is no family history of colorectal cancer and her last colonoscopy was over 10 years ago. Review of Systems Review of Systems: All systems reviewed & are unremarkable except as noted in HPI and below PMFSH Past Medical History Medical History Drop foot gait History of uterine fibroid Tubal ligation evaluation Migraine Depression Anemia Surgical History Surgical History History of section History of tubal ligation H/O knee surgery History of hip replacement H/O breast augmentation [place] teeth removed Status post endometrial ablation Social History Social History Smoking packs per day: 2 Smoking cigarettes per day: 40.0 Smoking status: Former smoker Second hand tobacco smoke exposure: No Smoking end date: 07/25/94 Alcohol intake: former Drinks per week: 4 Alcohol use details: quit age 54 Substance use: former Substance use type: marijuana Other substance usage details: age 24 Do You Feel Safe in your Home?: Yes Lack of Transportation: No Lack of Food: Never True Current Housing: I Have Housing Concerned About Future Housing: No Difficulty Paying Gas/Electric Bills: No Difficulty Paying for Meds: No Currently Unemployed: No Education: Master's Degree or Higher Difficulty w/ Childcare or Family Care: No Living arrangements: alone Spiritual care concerns: No Meds Home Medications and Allergies Home Medications ?Medication ?Instructions ?Recorded ?Confirmed ?Type clonazepam 1 mg tablet 1 mg PO DAILY 07/31/20 06/03/25 History methocarbamol 500 mg tablet 500 mg PO QID 07/31/20 06/03/25 History multivitamin,ax-cbig-cvysvjgx 1 tablet PO DAILY 07/31/20 06/03/25 History (Complete Multivitamin tablet) valacyclovir 500 mg tablet 500 mg PO Q12H 07/31/20 06/03/25 History (Valtrex) escitalopram oxalate 5 mg tablet 5 mg PO DAILY 03/30/24 06/03/25 History (Lexapro) topiramate 25 mg tablet 25 mg PO DAILY 05/31/25 06/03/25 History Allergies Allergy/AdvReac Type Severity Reaction Status Date / Time levofloxacin Allergy Unknown Unknown Verified 06/03/25 08:56 Vital Signs Vital Signs - 24 hr 06/03/25 08:50 Temperature 97.2 F L Pulse Rate 84 Respiratory Rate 16 Blood Pressure 132/77 Pulse Oximetry 97 Oxygen Delivery Room Air Exam Const: General: cooperative and healthy appearing Resp: Effort & Inspection: normal respiratory effort and able to speak in complete sentences Auscultation: clear to auscultation bilaterally Cardio: Rate: regular rate Rhythm: regular rhythm GI: Inspection: normal to inspection GI Palp: No No hepatosplenomegaly present Auscultation: normal bowel sounds Rectal Exam: deferred Skin: General skin exam: normal color Psych: Appearance: grossly normal Mental Status: mental status grossly normal Assessment and Plan Assessment and plan (1) Positive colorectal cancer screening using Cologuard test: Code(s): R19.5 - Other fecal abnormalities Status: Acute Assessment and Plan: The patient is deemed a good candidate for the procedure. Consent signed. Will proceed.
[2025-06-03 10:07] VITALS: BP 81/37; PULSE 73; RESP 20; O2SAT 98
[2025-06-03 10:17] VITALS: BP 78/32; PULSE 69; RESP 20; O2SAT 98
[2025-06-03 10:27] VITALS: BP 107/65; PULSE 64; RESP 13; O2SAT 98
--- NOTE | 2025-06-03 10:36 | SUR.PHASEII ---
Pt recovered and up in chair. Pt awaiting hook up driver, estimated time of arrival 11:00.
== END 2025-06-03 11:09 | disposition home or self-care (01) ==
PROVIDERS: PCP Physician Assistant; Referring Provider Physician Assistant; Visit Provider Internal Medicine Gastroenterology
PROC: 0DJD8ZZ Inspection of Lower Intestinal Tract, Via Natural or Artificial Opening Endoscopic (ICD-10-PCS; CPT 45378; principal; 2025-06-03 10:00)
DX: R19.5 Other fecal abnormalities (principal); K64.8 Other hemorrhoids; K57.30 Diverticulosis of large intestine without perforation or abscess without bleeding; D64.9 Anemia, unspecified; F32.A Depression, unspecified; M21.379 Foot drop, unspecified foot; F12.90 Cannabis use, unspecified, uncomplicated; Z98.890 Other specified postprocedural states; Z98.51 Tubal ligation status; Z98.891 History of uterine scar from previous surgery; Z87.891 Personal history of nicotine dependence
CPT/HCPCS: 45378; J2704; J7120

== ENCOUNTER 2025-06-12 09:47 | Outpatient (CLI) | payer OTHER, SELFPAY ==
--- NOTE | ~2025-06-12 | NM_ITS ---
EXAMINATION: NM parathyroid w imaging DATE: 06/12/2025 14:30 INDICATION: Hypercalcemia TECHNIQUE: 20 mCi Tc99m sestamibi (Cardiolite) was administered by intravenous route. Anterior images of the neck were obtained at 10 minutes and 2 hours. COMPARISON: None. FINDINGS/IMPRESSION: There is no focus of persistent activity in the area of the thyroid or mediastinum to suggest parathyroid adenoma. Reviewed, dictated and finalized at location A. TER SAX[facility]HONES
== END 2025-06-12 09:48 | disposition home or self-care (01) ==
PROVIDERS: PCP Physician Assistant; Visit Provider Physician Assistant
DX: E83.52 Hypercalcemia (principal)
CPT/HCPCS: 78070; A9500

== ENCOUNTER 2025-07-16 08:11 | Outpatient (CLI) | payer OTHER, SELFPAY ==
--- NOTE | ~2025-07-16 | DEXA_ITS ---
Bone Density Report Name: AJITH BAIN Age: 64 Sex: Female Ethnicity: White Date of : 1960 Indication: osteopenia; prior fracture; Referring Provider: IDALIA OLEARY Study: Bone densitometry was performed. Exam Date: July 16, 2025 Accession number: [id number] Bone Density: Region BMD T-score Z-score Classification AP Spine(L1-L4) 0.926 -1.1 0.7 Osteopenia Femoral Neck (Left) 0.693 -1.4 0.2 Osteopenia Total Hip (Left) 0.710 -1.9 -0.6 Osteopenia World Health Organization criteria for BMD impression classify patients as: Normal (T-score at or above -1.0), Osteopenia (T-score between -1.0 and -2.5), or Osteoporosis (T-score at or below -2.5). 10-year Fracture Risk: FRAX not reported because: Prior hip or vertebral fracture Previous Exams: -- Region Exam Age BMD T-score BMD Change BMD Change Date g/cm2 vs Baseline vs Previous -- AP Spine (L1-L4) 07/16/2025 64 0.926 -1.1 -16.8%* -1.3% 09/25/2020 60 0.938 -1.0 -15.7%* -15.7%* 06/13/2012 51 1.112 0.6 Total Hip(Left) 07/16/2025 64 0.710 -1.9 -31.2%* -12.0%* 09/25/2020 60 0.807 -1.1 -21.8%* -21.8%* 06/13/2012 51 1.033 0.7 -- *Denotes significance at 95% confidence level, LSC for AP Spine = 0.022 g/cm2, LSC for Total Hip = 0.027 g/cm2 Clinical Information Provided by Patient: Have had a previous hip or vertebral fracture Has had a low trauma fracture Has used the following medications: Vitamin D Patient maximum height was 64 Menopause Age: 51 No regular weight bearing exercise Drinks caffeinated beverages Onset of menses at age 12 Number of children 2 Missed period for more than 6 months in a row Impression: The patient has low bone mass, based on the Left Total Hip T-score. The patient has risk factors, including: previous fracture. The BMD for the Total Hip(Left) decreased, changing by -12.0% since the last DXA exam. Discussion: INCREASED RISK OF FRACTURE DUE TO HISTORY OF FRACTURE. The patient's previous fracture puts the patient at high risk of a future fracture. In untreated patients, the risk of osteoporotic fracture increases approximately two-fold for each 1.0 SD decrease in T-score. Low bone density is not the only risk factor for fracture; also consider factors such as patient's age, frailty or poor health, risk of falling, risk of injury, previous osteoporotic fracture, family history of osteoporosis, cigarette smoking, low body weight, etc. Not everyone with a low trauma fracture has osteoporosis; osteomalacia and other metabolic bone disorders should also be considered. Patients who have osteoporosis should be evaluated for specific diseases and conditions (secondary causes) that may cause or contribute to bone loss and fracture risk. National Osteoporosis Foundation (NOF) recommends pharmacologic intervention for patients with a prior hip or vertebral fracture regardless of BMD T-score. The patient should follow a healthful lifestyle (good nutrition with adequate calcium and vitamin D, and appropriate weight-bearing exercise). Follow-Up: Consider a repeat BMD and Vertebral Fracture Assessment (VFA) exam in 2 years or sooner if medically necessary, to reassess this patient's status. Reported by: UZIEL on 07/16/2025 8:31:00 AM. Reviewed, dictated and finalized at location A.
== END 2025-07-16 08:12 | disposition home or self-care (01) ==
LOC: MICIMG 08:11
PROVIDERS: PCP Physician Assistant; Visit Provider Nurse Practitioner Family
DX: M85.89 Other specified disorders of bone density and structure, multiple sites (principal); Z78.0 Asymptomatic menopausal state
CPT/HCPCS: 77080